=== PATIENT | female | born 1945 | race American Indian/Alaskan Native ===

== ENCOUNTER 2017-04-07 15:34 | Emergency (ER) | payer MEDICARE ==
[2017-04-07 15:44] VITALS: BMI 28.3
--- NOTE | 2017-04-07 16:08 | ED PDOC ---
Arrival/HPI - General Historian: Patient, EMS <Stefania Thao - Last Filed: 04/07/17 22:40> <Vita Zamora - Last Filed: 04/07/17 22:50> - General Chief Complaint: Altered Mental Status Time Seen by Provider: 04/07/17 15:54 - History of Present Illness Narrative History of Present Illness (Text): 04/07/17 16:15 71yr old female with hx of CVA presents today with slurred speech. Pt states she is mad that she is here and that he daughter made her come and her daughter is over reacting. Per EMS, pt with AMS noticed at 1pm today. Per the patients son in law, the patient was last seen well yesterday. Pts daughter went to work at 5am and did not see the patient, but at noon today the patients daughter called her and noticed that the patient was slurring her words, so EMS was contacted. pt claims that she has been dragging her left leg for 2 days. per hx , pt with hx dementia. pt denies cp or sob. family states patient has been diagnosed with dementia that has been slowly worsening. no other complaints. (Stefania Thao) Past Medical History - Provider Review Nursing Documentation Reviewed: Yes - Travel History Have you recently traveled outside [place] w/in the past 3 mons?: No - Infectious Disease Hx of Infectious Diseases: None - Tetanus Immunization Tetanus Immunization: Unknown - Cardiac Hx Hypertension: Yes - Pulmonary Hx Respiratory Disorders: No - Neurological Hx Neurological Disorder: No Hx Transient Ischemic Attacks (TIA): Yes - HEENT Hx HEENT Disorder: No - Renal Hx Renal Disorder: No - Endocrine/Metabolic Hx Diabetes Mellitus Type 2: Yes - Hematological/Oncological Hx Blood Disorders: No Hx Cancer: Yes (multiple myeloma in remission) Other/Comment: stem cell transplant 2012 - Integumentary Hx Dermatological Disorder: No - Musculoskeletal/Rheumatological Hx Falls: Yes (past) - Gastrointestinal Hx Gastroesophageal Reflux: Yes - Genitourinary/Gynecological Hx Genitourinary Disorders: No - Psychiatric Hx Psychophysiologic Disorder: No Hx Substance Use: No - Surgical History Other/Comment: stem cell transplant 2012 - Anesthesia Hx Anesthesia: Yes Hx Anesthesia Reactions: No Hx Malignant Hyperthermia: No - Suicidal Assessment Feels Threatened In Home Enviroment: No <Stefania Thao - Last Filed: 04/07/17 22:40> Family/Social History - Physician Review Nursing Documentation Reviewed: Yes Family/Social History: Unknown Family HX Smoking Status: Never Smoked Hx Alcohol Use: No Hx Substance Use: No Hx Substance Use Treatment: No <Stefania Thao - Last Filed: 04/07/17 22:40> Allergies/Home Meds <Stefania Thao - Last Filed: 04/07/17 22:40> <Vita Zamora - Last Filed: 04/07/17 22:50> Allergies/Adverse Reactions: Allergies No Known Allergies Allergy (Verified 12/08/12 00:51) Home Medications: Home Meds Medication Instructions Recorded Confirmed Lisinopril/Hydrochlorothiazide 1 tab PO DAILY 01/18/15 04/07/17 [Lisinopril-Hctz 20-25 mg Tab] Crestor 5 mg PO HS 02/08/16 04/07/17 Metformin HCl [Glucophage] 500 mg PO BID 02/08/16 04/07/17 Review of Systems - Review of Systems Systems not reviewed;Unavailable: Altered Mental Status Constitutional: absent: Fatigue, Fevers Respiratory: absent: SOB, Cough Cardiovascular: absent: Chest Pain, Palpitations Gastrointestinal: absent: Abdominal Pain, Nausea, Vomiting Musculoskeletal: absent: Arthralgias Skin: absent: Rash <Stefania Thao - Last Filed: 04/07/17 22:40> Physical Exam Vital Signs Reviewed: Yes Temperature: Afebrile Blood Pressure: Hypertensive Pulse: Regular Respiratory Rate: Normal Appearance: Positive for: Well-Appearing, Non-Toxic, Comfortable Pain Distress: None Mental Status: Positive for: Alert and Oriented X 3, other Finger Stick Blood Glucose: 247 - Systems Exam Head: Present: Atraumatic Pupils: Present: PERRL Extroacular Muscles: Present: EOMI Mouth: Present: Moist Mucous Membranes Neck: Present: Normal Range of Motion Respiratory/Chest: Present: Clear to Auscultation Cardiovascular: Present: Regular Rate and Rhythm Abdomen: No: Tenderness Upper Extremity: Present: Normal ROM Skin: Present: Warm, Dry Psychiatric: Present: Alert, Oriented x 3 <Stefania Thao - Last Filed: 04/07/17 22:40> Medical Decision Making <Stefania Thao - Last Filed: 04/07/17 22:40> <Vita Zamora - Last Filed: 04/07/17 22:50> ED Course and Treatment: 04/07/17 16:08 pt is alert and oriented with difficulty expressing herself. code stroke called. Initial history was that patient developed symptoms at 1pm. after further history from family. pt was found to have AMS during a phone call around 12pm today but patient was last seen well Yesterday. discussed initial baseline assessment with dr. ravi. He would like MRI if available. 04/07/17 16:29 CT head; FINDINGS: HEMORRHAGE: No intracranial hemorrhage. BRAIN: Diffuse atrophy with prominence of the ventricles and sulci noted. No mass effect or edema. Right parietal lobe encephalomalacia. Hypodense region adjacent the right frontal horn lateral ventricle consistent with chronic ischemic change. Scattered, right greater than left, periventricular and subcortical white matter hypodensities, which are nonspecific, but often seen with chronic microvascular ischemic disease. VENTRICLES: No hydrocephalus. CALVARIUM: Unremarkable. PARANASAL SINUSES: Unremarkable as visualized. No significant inflammatory changes. MASTOID AIR CELLS: Unremarkable as visualized. No inflammatory changes. OTHER FINDINGS: None. IMPRESSION: Right parietal encephalomalacia, more pronounced than on prior study. Hypodense region adjacent the right frontal horn lateral ventricle consistent with chronic ischemic change. Please note that MRI with diffusion imaging is more sensitive in the detection of acute ischemic event. Nonspecific, right greater than left, white matter changes as above. Generalized atrophy. 04/07/17 16:33 PT IS NOT A TPA CANDIDATE THERE IS NO KNOWN ONSET OF SYMPTOMS. 04/07/17 19:02 MRI/MRA:FINDINGS: Brain: There are tiny punctate foci of elevated signal in the right posterior frontal and parietal lobes on diffusion weighted images some of which appear to have corresponding low signal on the ADC or do not have corresponding elevated signal. There is old right frontal and parietal hemorrhage including areas suggesting superficial siderosis, some of which are tiny areas adjacent to the diffusion abnormalities. No acute hemorrhage. Old right parietal infarct. Small area of high right frontal cortical laminar necrosis. Volume loss. Chronic small vessel white matter ischemic change. Ventricles: No hydrocephalus. Bones/joints: Unremarkable. Sinuses: Mild paranasal sinus mucosal thickening. No fluid levels. Mastoid air cells: Unremarkable as visualized. No mastoid effusion. Orbits: Unremarkable as visualized. Vertebral arteries: Flow-void of the distal left vertebral artery is not visualized, stable. IMPRESSION: Findings compatible with small acute right posterior frontal and parietal infarcts. Old right parietal infarct. Chronic small vessel white matter ischemic change. Old right frontal and parietal hemorrhage. Nonacute distal left vertebral artery occlusion. EXAM: MR Angiography Head Without Intravenous Contrast FINDINGS: Right internal carotid artery: There is relative attenuation of signal in the cavernous and supraclinoid segments of the right internal carotid artery Right anterior cerebral artery: Proximal A1 segment of the right anterior cerebral artery is not visualized. There is flow within the distal A1 segment extending into the A2 segment. Proximal A2 is attenuated in signal with no occlusion. No aneurysm. Right middle cerebral artery: No significant flow within the right middle cerebral artery on reconstructed images although there is questionable trickle flow in the M1 and proximal M2 segments on review of source images. There is reconstitution of flow in the distal M2 with flow seen in right temporal opercular branches. Right posterior cerebral artery: High-grade stenosis in the distal P2 segment right posterior cerebral artery. Right vertebral artery: Mild stenosis in the distal right vertebral artery just proximal to the vertebrobasilar junction. Left internal carotid artery: No acute findings. Intracranial segment is patent with no significant stenosis. Left anterior cerebral artery: There is attenuation of signal in the proximal A2 segment of the left anterior cerebral artery which could be artifact or a mild stenosis. No occlusion. No aneurysm. Left middle cerebral artery: Unremarkable. No occlusion or significant stenosis. No aneurysm. Left posterior cerebral artery: Unremarkable. No aneurysm. Left vertebral artery: No flow within the distal left vertebral artery. Basilar artery: Mild stenoses in the proximal and mid IMPRESSION: Marked attenuation of signal in the distal right vertebral artery which could represent artifact, poor flow and/or near occlusion. Questionable minimal flow in the right middle cerebral artery which could represent occlusion or highgrade near occlusive stenosis with a string sign. Nonvisualization of flow in the proximal right anterior screw artery which would suggest occlusion although there is flow seen distally which could be reconstitution, retrograde flow, or possibly the lack of visualization proximally is artifactual. Occluded distal left vertebral artery. Distal right vertebral artery, basilar artery, and right posterior cerebral artery stenoses. Mild bilateral anterior cervical artery A2 stenoses versus artifact. Consider CTA brain to further evaluate and confirm whether the right middle cerebral artery is occluded or there is minimal flow dr. zamora discussed results with dr. Jean Marie ravi; he would like CTA of head and neck. 04/07/17 19:44 dr. Zamora discussed the case with dr. roldan; accepts admission. pt reassessment; resting comfortably; vitals stable; pt eating in er. no distress. CTA Of head and neck results; EXAM: CT Angiography Head With Intravenous Contrast CLINICAL HISTORY: 71 years old, female; Signs and symptoms; Cognitive deficit; Type not specified ; Additional info: Stroke TECHNIQUE: Axial computed tomographic angiography images of the head with intravenous contrast using CT angiography protocol. This CT exam was performed using one or more of the following dose reduction techniques: automated exposure control, adjustment of the mA and/or kV according to patient size, and/or use of iterative reconstruction technique. CONTRAST: 146 mL of OMNIPAQUE administered intravenously. COMPARISON: No relevant prior studies available. FINDINGS: Right internal carotid artery: No evidence of acute pathology. Intracranial segment is patent with no significant stenosis. No aneurysm. Right anterior cerebral artery: Unremarkable. No occlusion or significant stenosis. No aneurysm. Right middle cerebral artery: Long segment area of moderate to severe stenosis seen in right M1 segment of MCA. No evidence of occlusion. M2 segments are patent. Right posterior cerebral artery: Unremarkable. No occlusion or significant stenosis. No aneurysm. Right vertebral artery: Unremarkable as visualized. Left internal carotid artery: No evidence of acute pathology. Intracranial segment is patent with no significant stenosis. No aneurysm. Left anterior cerebral artery: Unremarkable. No occlusion or significant stenosis. No aneurysm. Left middle cerebral artery: Unremarkable. No occlusion or significant stenosis. No aneurysm. Left posterior cerebral artery: Unremarkable. No occlusion or significant stenosis. No aneurysm. Left vertebral artery: Complete occlusion of left distal vertebral artery involving the intracranial portion. There is tapering of flow beginning at the level of the dura to complete occlusion. Basilar artery: Areas of mild atherosclerotic stenosis in mid basilar artery. IMPRESSION: 1. Complete occlusion of left distal vertebral artery involving the intracranial portion. There is tapering of flow beginning at the level of the dura to complete occlusion. Findings are consistent with vertebral artery dissection. 2. Long segment area of moderate to severe stenosis seen in right M1 segment of MCA. No evidence of occlusion. M2 segments are patent. 3. Areas of mild atherosclerotic stenosis in mid basilar artery. EXAM: CT Angiography Neck With Intravenous Contrast FINDINGS: VASCULATURE: Right common carotid artery: Unremarkable. No significant stenosis. No dissection or occlusion. Right internal carotid artery: Mild atherosclerotic calcifications in bilateral proximal ICA. No significant stenosis. Right external carotid artery: Unremarkable. No occlusion. Right vertebral artery: Unremarkable. No significant stenosis. No dissection or occlusion. Left common carotid artery: Unremarkable. No significant stenosis. No dissection or occlusion. Left internal carotid artery: See above. Left external carotid artery: Unremarkable. No occlusion. Left vertebral artery: Tapering of distal left vertebral artery leading to intracranial occlusion. NECK: Bones/joints: No acute fracture. No dislocation. Soft tissues: Unremarkable as visualized. No mass. Thyroid: Multiple cystic lesions in thyroid gland measuring up to 9 mm. CAROTID STENOSIS REFERENCE USING NASCET CRITERIA: % ICA stenosis = (1 - narrowest ICA diameter/diameter of distal cervical ICA) x 100. Mild - <50% stenosis. Moderate - 50-69% stenosis. Severe - 70-94% stenosis. Near occlusion - 95-99% stenosis. Occluded - 100% stenosis. IMPRESSION: 1. Tapering of distal left vertebral artery leading to intracranial occlusion. 2. Mild atherosclerotic calcifications in bilateral proximal ICA. No significant stenosis. pt reassessment; resting comfortably; vitals remain stable. results discussed with dr. Jean Marie ravi; pt should be transferred to [facility] for VAD. impression; CVA, vertebral artery dissection Transfer to [facility] (Stefania Taho) 04/07/17 21:05 Patient seen and evaluated with JOSE. I obtained history from [facility] and subsequently spoke directly to patient's "son-in-law". Reportedly that patient was last seen her typical self last night. Daughter went to work at 5 am today but did not see patient. She reportedly spoke to patient on phone around noon and she "wasn't talking right on the phone". Daughter went home and around 1pm noted she had difficulty speaking. Patient seen immediately upon arrival to ED. As initial time frame unknown, CODE stroke called and neurology consulted as patient noted to have drift to left upper and lower extremity and mild expressive aphasia. NOT A TPA CANDIDATE as futher history revealed unknown time of onset. CT head reviewed and case d/w Dr. Martha Ravi. Stat MRI AND MRA requested. These MRI and MRA findigns reviewed with neurology, CTA of head and neck ordered. CTA findings suggestive of vertebral artery dissection. Patient with serial neuro exams in ED, NO WORSENING OF MENTAL STATUS OR CHANGE IN NEURO EXAM. BP remains stable. CTA findings reviewed with Dr. Martha Ravi, requests transfer to [facility]3] for neuro icu monitoring. [facility] paged. Have continued monitoring and serial exams. 04/07/17 21:47 Case discussed with [facility] team with Dr. Toth accepting transfer. I have discussed in length with the patient her diagnosis and ct and mri findings. RN Amanda present and patient is alert and able to repeat back her diagnosis and understands that neurologist has recommended transfer to [facility]3] based on cta findings. She still has a component of expressive aphasia but is able to communicated to me and write down her daughter Selena's cell phone number, and also clarifies to me that she believes her daughter is in [place] and her phone may not be working. She also states to me that it was Tremaine, her fiance, not her daughter, who came to her house this afternoon to find her in this state. Patient is able to repeat back treatment plan, indications for transfer, risks of transfer, and has been given opportunity to ask questions. Rn witness her consent and ability to communicate and understand and consent to treatment plan. I have made multiple calls to Selena on cell phone and left voice mail message. I have also called Tremaine Franco, daughter's fiance who was present with patient on initial arrival . Patient consents to transfer based on abnormal ct findings. Patient states to me that she had prior history of brain hemorrhage. Based on urgency of cta findings and after consultation with Dr. Martha Ravi, patient requires emergent transfer for specialty neurosurgical ICU monitoring and treatment. 04/07/17 22:48 Patient's daughter Selena presented to ED. She was updated on patient's diagnosis and studies. She is aware of plan to transfer patient to [facility]3] and indications and also consents to this based on neurologist recommendation and cta findings. Patient reportedly saw pmd Dr. Biggs yesterday due to left leg weakness she had been experiencing and multiple falls over past week. No unstable bony trauma noted. No hip pain noted. No back pain noted. Awaiting transfer to [facility]3]. (Vita Zamora) - Lab Interpretations Lab Results: 04/07/17 16:35 04/07/17 16:35 Lab Results 04/07/17 16:35: Blood Type O POSITIVE, Antibody Screen Negative, BBK History Checked Patient has bt 04/07/17 16:35: Sodium 139, Potassium 4.4, Chloride 101, Carbon Dioxide 27, Anion Gap 15, BUN 16, Creatinine 0.8, Est GFR ( Amer) > 60, Est GFR (Non- Af Amer) > 60, Random Glucose 218 H, Calcium 10.1, Total Bilirubin 0.5, AST 25, ALT 22, Alkaline Phosphatase 98, Troponin I < 0.01, Total Protein 8.8 H, Albumin 4.1, Globulin 4.7, Albumin/Globulin Ratio 0.9 L, Triglycerides 137, Cholesterol 201 H, LDL Cholesterol Direct 148 H, HDL Cholesterol 32 04/07/17 16:35: PT 11.3, INR 1.05, APTT 26.2 04/07/17 16:35: WBC 9.3, RBC 4.31, Hgb 11.1 L, Hct 33.8 L, MCV 78.4 L, MCH 25.8 , MCHC 32.8, RDW 16.2 H, Plt Count 333, MPV 8.6, Gran % 50.0, Lymph % (Auto) 36.6 H, Lawrence % (Auto) 10.0 H, Eos % (Auto) 3.2, Baso % (Auto) 0.2, Gran # 4.62, Lymph # 3.4, Lawrence # 0.9 H, Eos # 0.3, Baso # 0.02 - RAD Interpretation Radiology Orders: 04/07/17 15:56 HEAD W/O (CODE STROKE) [CT] Stat CHEST ONE VIEW [RAD] Stat 04/07/17 16:01 BRAIN WITHOUT CONTRAST [MRI] Stat - Medication Orders Current Medication Orders: Acetaminophen (Tylenol 325mg Tab) 650 mg PO Q6H PRN PRN Reason: Fever >100.4 F Aspirin (Aspirin Chewable) 81 mg PO DAILY [facility] Atorvastatin Calcium (Lipitor) 20 mg PO DIN [facility] Hydrochlorothiazide (Hydrodiuril) 25 mg PO DAILY [facility] Insulin Human Regular (Humulin R Med) 0 units SC ACHS JUAN RAMON PRN Reason: Protocol Lisinopril (Zestril) 20 mg PO DAILY [facility] Metformin HCl (Glucophage) 500 mg PO BID [facility] Last Admin: 04/07/17 19:44 Dose: 500 mg Pantoprazole Sodium (Protonix Ec Tab) 40 mg PO 0630 [facility] Discontinued Medications Aspirin (Aspirin) 325 mg PO STAT STA Stop: 04/07/17 17:12 Last Admin: 04/07/17 18:02 Dose: 325 mg Iohexol (Omnipaque 350 150 Ml) Confirm Administered Dose 150 ml .ROUTE .STK-MED ONE Stop: 04/07/17 19:35 NIHSS Scale ([place]) Time Performed: 16:00 - How Severe is the Stoke Baseline Level of Consciousness: 0=Alert LOC to Questions: 0=Both comments correct LOC to commands: 0=Obeys both correctly Best Gaze: 0=Normal Visual: 0=No visual loss Facial: 0=Normal Motor Arm - Left: 0=No drift Motor Arm - Right: 0=No drift Motor Leg - Left: 1=Drift before 5 sec Motor Leg - Right: 0=No drift Limb Ataxia: 0=Absent Sensory: 0=Normal Best Language: 0=No aphasia Dysarthia: 1=Mild to moderate slurring Extinction & Inattention (Neglect): 0=Normal, no object Score: 2 Risk Level: Minor Stroke Risk <Stefania Thao - Last Filed: 04/07/17 22:40> rTPA Inclusion/Exclusion - Refusal of Treatment Patient Refused Treatment: No - Inclusion Criteria for Altepase Patient is 18 years or Older: Yes The Clinical Diagnosis of Ischemic Stroke That is Causing a Potentially Disabling Neurological Deficit: Yes Time of Onset is Well Established to be Less Than 270 Minute Before Treatment Would Begin: No Risk/Benefit Discussed With Patient/Family Member Present: No - Exclusion Criteria for Altepase Uncontrolled Hypertension at Time of Treatment (Systolic BP above 185 or Diastolic BP above 110 mmHg): No Active Internal Bleeding: No Known Bleeding Diathesis Including but Not Limited to: Platelets Below 100,000/ mm,PTT Above 40 sec After Heparin Use, Current Use of Oral Anitcoagulant With INR Greater Than 1.7 or PT Greater Than 15 secs: No Evidence of an Intracranial Hemorrhage: No Evidence of Major Acute Infarct With Signs Greater Than 1/3 MCA Territory: No Suspicion of Subarachnoid Hemorrhage on Pretreatment Evaluation Even if CT Head Negative For Hemorrhage: No <Stefania Thao - Last Filed: 04/07/17 22:40> - PA / MEDICAL AUDITOR / Resident Statement / has reviewed & agrees with the documentation as recorded. / has examined the patient and agrees with the treatment plan. <Vita Zamora - Last Filed: 04/07/17 22:50> Disposition/Present on Arrival - Present on Arrival Any Indicators Present on Arrival: No History of DVT/PE: No History of Uncontrolled Diabetes: No Urinary Catheter: No History of Decub. Ulcer: No History Surgical Site Infection Following: None - Disposition Have Diagnosis and Disposition been Completed?: Yes Disposition Time: 16:41 <Stefania Thao - Last Filed: 04/07/17 22:40> <Vita Zamora - Last Filed: 04/07/17 22:50> - Disposition Diagnosis: CVA (cerebral vascular accident), Vertebral artery dissection Disposition: Transfer Overlook Patient Problems: Current Active Problems Problem Status Onset CVA (cerebral vascular accident) Acute Vertebral artery dissection Acute Condition: CRITICAL
--- NOTE | 2017-04-07 16:26 | CT ---
PROCEDURE: CT HEAD WITHOUT CONTRAST. HISTORY: Code Stroke COMPARISON: None available. TECHNIQUE: Axial computed tomography images were obtained through the head/brain without intravenous contrast. Radiation dose: Total exam DLP = 745.93 mGy-cm. This CT exam was performed using one or more of the following dose reduction techniques: Automated exposure control, adjustment of the mA and/or kV according to patient size, and/or use of iterative reconstruction technique. FINDINGS: HEMORRHAGE: No intracranial hemorrhage. BRAIN: Diffuse atrophy with prominence of the ventricles and sulci noted. No mass effect or edema. Right parietal lobe encephalomalacia. Hypodense region adjacent the right frontal horn lateral ventricle consistent with chronic ischemic change. Scattered, right greater than left, periventricular and subcortical white matter hypodensities, which are nonspecific, but often seen with chronic microvascular ischemic disease. VENTRICLES: No hydrocephalus. CALVARIUM: Unremarkable. PARANASAL SINUSES: Unremarkable as visualized. No significant inflammatory changes. MASTOID AIR CELLS: Unremarkable as visualized. No inflammatory changes. OTHER FINDINGS: None. IMPRESSION: Right parietal encephalomalacia, more pronounced than on prior study. Hypodense region adjacent the right frontal horn lateral ventricle consistent with chronic ischemic change. Please note that MRI with diffusion imaging is more sensitive in the detection of acute ischemic event. Nonspecific, right greater than left, white matter changes as above. Generalized atrophy. Findings discussed with [employer] Securitymaggie epps on 04/07/17 at 4:21 p.m.
--- NOTE | 2017-04-07 16:35 | RAD ---
HISTORY: code stroke COMPARISON: Chest x-ray performed 02/08/16 TECHNIQUE: Chest, one view. FINDINGS: Examination limited by habitus. LUNGS: No focal consolidation. Please note that chest x-ray has limited sensitivity for the detection of pulmonary masses. PLEURA: No significant pleural effusion identified. No definite pneumothorax . CARDIOVASCULAR: Heart size appears within normal limits. OSSEOUS STRUCTURES: Degenerative changes of the spine. VISUALIZED UPPER ABDOMEN: Elevated right hemidiaphragm. OTHER FINDINGS: None. IMPRESSION: No focal consolidation, significant pleural effusion, or definite pneumothorax identified.
[2017-04-07 16:47] LABS: ADD MANUAL DIFF? NO
[2017-04-07 16:49] LABS: BASO # 0.02 K/mm3 (0.0-2.0); BASO % 0.2 % (0.0-3.0); EOS # 0.3 (0.0-0.7); EOS % 3.2 % (1.5-5.0); GRAN # 4.62 (1.4-6.5); HEMATOCRIT 33.8 % (36.0-48.0); LYMPH # 3.4 (1.2-3.4); LYMPH % 36.6 % (22.0-35.0); MEAN CELL VOLUME 78.4 fL (80.0-105.0); MEAN CORPUSCULAR HEMOGLOBIN 25.8 pg (25.0-35.0); MEAN CORPUSCULAR HGB CONC 32.8 g/dl (31.0-37.0); MEAN PLATELET VOLUME 8.6 fl (7.0-11.0); MONO # 0.9 (0.1-0.6); PLATELET COUNT 333 10^3/uL (120.0-450.0); RED CELL DISTRIBUTION WIDTH 16.2 % (11.5-14.5); WHITE BLOOD COUNT 9.3 10^3/ul (4.5-11.0)
[2017-04-07 17:04] LABS: ALB/GLOB RATIO 0.9 (1.1-1.8); ALKALINE PHOSPHATASE 98 U/L (38-133); ALT/SGPT 22 U/L (7-56); AST/SGOT 25 U/L (15-39); BILIRUBIN,TOTAL 0.5 mg/dL (0.2-1.3); BLOOD UREA NITROGEN 16 mg/dL (7-21); CALCIUM 10.1 mg/dL (8.4-10.5); CARBON DIOXIDE 27 mmol/L (21-33); CHLORIDE 101 mmol/L (98-107); CHOLESTEROL 201 mg/dL (130-200); GFR AFRICAN-AMERICAN > 60; GLUCOSE,RANDOM 218 mg/dL (70-110); POTASSIUM 4.4 mmol/L (3.6-5.0); SODIUM 139 mmol/L (132-148); TOTAL PROTEIN 8.8 g/dL (5.8-8.3)
[2017-04-07 17:15] LABS: INR 1.05 (0.93-1.08); PARTIAL THROMBOPLASTIN TIME 26.2 Seconds (23.7-30.8)
[2017-04-07 17:18] LABS: TROPONIN I < 0.01 ng/mL
[2017-04-07 21:32] LABS: CHOLESTEROL 169 mg/dL (130-200)
[2017-04-07 21:49] LABS: TROPONIN I < 0.01 ng/mL
[2017-04-07] MEDS ORDERED: Insulin Reg-MEDIUM-Coverage SC SCH (22:00)
[2017-04-07 23:33] VITALS: BP 123/70; PULSE 85; RESP 16; TEMP 98.2; O2SAT 96
--- NOTE | 2017-04-08 01:00 | HP ---
HISTORY OF PRESENT ILLNESS: The patient is a 71-year-old female who lives with her daughter. Her scot luong went to work and the last time she saw her was this morning and was okay, but when she called her in the afternoon, she was slurring speech and she was found to be somewhat confused, so daughter brought her to Emergency Room. The patient seems to be upset with her daughter, because she did not want to come to the hospital. The patient was seen last night. However, she was found to be confuse d and slurring words. So EMS was called and the patient was brought to Emergency Room. The patient does complain of having some weakness on the left arm and the left leg going on for the last 2 days. Denies any trauma. No history of fall. The patient does have underlying dementia. No history of f ever or chills. No history of nausea, vomiting, no diarrhea, no hemoptysis, no hematemesis. PAST MEDICAL HISTORY: 1. Non-insulin dependent diabetes. 2. Hypertension. 3. Hyperlipidemia. ALLERGIES: She is not allergic to any medications. MEDICATIONS AT HOME: She is on metformin 500 twice a day, lisinopril 20 with hydrochlorothiazide 25 mg, Crestor 5 mg at bedtime, aspirin 81 daily. SOCIAL HISTORY: She lives with her daughter. Denies smoking, drinking or alcohol use. REVIEW OF SYSTEMS: Significant for left-sided weakness and somewhat confused more than usual. PHYSICAL EXAMINATION: GENERAL: She is awake and alert, answers simple questions. VITAL SIGNS: She is afebrile, pulse 74, respirations 16, blood pressure 136/75. LUNGS: Bilateral good airflow, no rhonchi or crackle. HEART: S1, S2 audible. ABDOMEN: Soft, nontender, no rebound, no guarding. NEUROLOGIC: She is awake and alert, somewhat confused, has left upper extremity weakness. EXTREMITIES: Bilateral leg, no edema. LABORATORY DATA: WBC is 9.3, hemoglobin 11, hematocrit 33.8, platelet of 323, PT 11.3, INR 1.05, PTT 26.2. Chemistry: Sodium 139, potassium 4.4, chloride 101, CO2 of 27, BUN 16, creatinine 0.8, blood sugar of 218. LFTs are within normal limits. Total protein 8.8. Cholesterol 201, LDL is 148. AST . CT scan of the brain was done that shows right parietal encephalomalacia and also changes co nsistent with chronic ischemic changes, nonspecific right white matter changes, generalized atrophy. The patient had MRI done that shows a possible acute infarct of MCA, right MCA. X-ray chest shows n o focal consolidation or pleural effusion. ASSESSMENT AND PLAN: 1. Altered mental status with left-sided weakness. 2. Expressive dysphasia. PLAN: Discussed with the ER physician, which she is not TPA, so code stroke was called. The i s being admitted in telemetry. We will follow up her blood work. Monitor her blood sugar. CT angio has been requested by Dr. Kevin Ross. We will start her on aspirin, statins. Swallowing eval stein s been requested. Physical therapy evaluation has been requested. Kesha Saavedra MD cc: [phone] TT: 04/08/2017 00:59:14 mn
[2017-04-08] MEDS ORDERED: Pantoprazole 40 mg EC Tab PO SCH (06:30)
--- NOTE | 2017-04-08 14:13 | MRI ---
PROCEDURE: MRI BRAIN WITHOUT CONTRAST HISTORY: AMS COMPARISON: Noncontrast head CT from 04/07/2017. MRI brain without contrast from 02/09/2016 TECHNIQUE: Multiplanar, multisequence MR images of the brain were obtained without intravenous contrast enhancement. FINDINGS: HEMORRHAGE: None DWI: There are multiple tiny foci of restricted diffusion in the right centrum semiovale, lateral and paramedian frontal cortex and parietal cortex. BRAIN PARENCHYMA: There has been interval progression of old infarctions in the right frontal and parietal lobes. There are moderate chronic microangiopathic changes. There is no mass, mass effect or abnormal extra-axial fluid collection. The midline sagittal structures are normal. VENTRICLES: There is mild age-related global parenchymal volume loss and proportionate enlargement of the ventricles and cortical sulci. CRANIUM: There is normal bone marrow signal pattern. ORBITS: Grossly unremarkable. PARANASAL SINUSES/MASTOIDS: Predominantly clear. VASCULAR SYSTEM: There are normal signal voids in the larger intracranial arteries. There is redemonstration of absent flow void in the left vertebral artery. OTHER FINDINGS: None. IMPRESSION: 1. Findings are most compatible with small multifocal acute infarctions in the right centrum semiovale, frontal and parietal cortex in the left MCA distribution territory distribution. The pattern of distribution is most compatible with embolic etiology. 2. Interval progression of old infarctions in the right frontal and parietal lobes. 3. Moderate chronic microangiopathic changes and mild age-related global parenchymal volume loss. 4. Chronic occlusion of the left vertebral artery. A preliminary report was provided by [facility].
--- NOTE | 2017-04-08 14:36 | CT ---
PROCEDURE: CTA HEAD AND NECK WITH CONTRAST HISTORY: Stroke COMPARISON: Noncontrast head CT performed earlier the same day TECHNIQUE: Initial noncontrast head CT was performed. Subsequently, CT angiogram of the head and neck were performed after the intravenous administration of 80 mL of Omnipaque 350. Contiguous 1.5mm thick images were obtained in the axial plane of the neck. 2-D coronal and sagittal MPR images were obtained. Imaging postprocessing was performed with 3-D images also obtained. A delayed contrast head CT was also obtained. Iterative reconstruction was used. Radiation dose: Total exam DLP = 514.49 mGy-cm. This CT exam was performed using one or more of the following dose reduction techniques: Automated exposure control, adjustment of the mA and/or kV according to patient size, and/or use of iterative reconstruction technique FINDINGS: HEAD: Right: The intracranial internal carotid artery, and anterior arteries are widely patent. There is segmental moderate stenosis in the proximal M1 segment. Left: The intracranial internal carotid artery, anterior and middle cerebral arteries are widely patent. The visualized intracranial right vertebral artery and posterior cerebral arteries are widely patent. There is mild multifocal stenosis in the proximal and mid basilar artery. Bone There is complete occlusion of the intracranial left vertebral artery (V4 segment). The There is no endoluminal filling defect to suggest thrombus. There is no intracranial stenosis or aneurysm. There is no abnormal enhancement on the postcontrast CT. NECK: There is no stenosis at the origins of the great vessels at the level of the aortic arch. Right Carotid: On the right, the common carotid, internal carotid and external carotid arteries are widely patent. Mild atherosclerotic calcifications in the proximal internal carotid artery. Left Carotid: On the left, the common carotid, internal carotid and external carotid arteries are widely patent. Mild atherosclerotic calcifications in the proximal internal carotid artery. The vertebral arteries are widely patent. The left vertebral artery is hypoplastic. The visualized soft tissues of the neck are normal. No abnormal neck lymphadenopathy. The airway is patent. The visualized brain, cervical spine and lung apices are normal. There is a multinodular thyroid gland. IMPRESSION: 1. Segmental moderate stenosis in the proximal right M1 segment. 2. 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 3. Mild multifocal narrowing in the proximal and mid basilar artery. 4. Multinodular thyroid gland, if not already performed a dedicated thyroid ultrasound is recommended for further characterization. A preliminary report was provided by [email or web address]. Additional findings were discussed with JOSE Reyes in the ER on 04/08/2017 at 2:30 p.m.
--- NOTE | 2017-04-08 22:11 | CARD ---
APPROVED REPORT EKG Measurement Heart [id number] FL [id number] [id number] <Conclusion> Normal sinus rhythm Normal ECG
== END 2017-04-07 23:35 | disposition short-term general hospital (02) ==
LOC: ED 15:34 → UNDOADMIN 16:40 → ERH 16:40
DX: I63.9 Cerebral infarction, unspecified (principal); I77.74 Dissection of vertebral artery; I10 Essential (primary) hypertension; C90.01 Multiple myeloma in remission; E11.9 Type 2 diabetes mellitus without complications; K21.9 Gastro-esophageal reflux disease without esophagitis
CPT/HCPCS: 70450; 70496; 70498; 70551; 71010; 80053; 80061; 83036; 84484; 85025; 85610; 85730; 86850; 86900; 93005; 99285; Q9967

== ENCOUNTER 2017-07-29 16:17 | Inpatient (IN) | payer MEDICARE ==
[2017-07-29 16:37] VITALS: BMI 27.0
--- NOTE | 2017-07-29 16:38 | ED PDOC ---
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 Patient comes in accompanied with her daughter who explains that she has noticed changes in speech and decrease in cognition due to patient's responses over the past few days. Additionally, daughter states noticing patient having gait changes. Patient admits to generalized weakness. Patient denies fever, chest pain, headache, shortness of breath, abdominal pain, nausea, vomiting, dysuria, or other complaints. PMD: Dr. Biggs Time/Duration: < week Symptom Onset: Sudden Symptom Course: Unchanged Associated Symptoms (Text): weakness, changes in cognition, speech, and gait Past Medical History - Provider Review Nursing Documentation Reviewed: Yes - Infectious Disease Hx of Infectious Diseases: None - Tetanus Immunization Tetanus Immunization: Unknown - Cardiac Hx Hypertension: Yes - Pulmonary Hx Respiratory Disorders: No - Neurological Hx Neurological Disorder: No Hx Transient Ischemic Attacks (TIA): Yes - HEENT Hx HEENT Disorder: No - Renal Hx Renal Disorder: No - Endocrine/Metabolic Hx Diabetes Mellitus Type 2: Yes - Hematological/Oncological Hx Blood Disorders: No Hx Cancer: Yes (multiple myeloma in remission) Other/Comment: stem cell transplant 2012 - Integumentary Hx Dermatological Disorder: No - Musculoskeletal/Rheumatological Hx Falls: Yes (past) - Gastrointestinal Hx Gastroesophageal Reflux: Yes - Genitourinary/Gynecological Hx Genitourinary Disorders: No - Psychiatric Hx Psychophysiologic Disorder: No Hx Substance Use: No - Surgical History Other/Comment: stem cell transplant 2012 - Anesthesia Hx Anesthesia: Yes Hx Anesthesia Reactions: No Hx Malignant Hyperthermia: No - Suicidal Assessment Feels Threatened In Home Enviroment: No Family/Social History - Physician Review Nursing Documentation Reviewed: Yes Family/Social History: Unknown Family HX Smoking Status: Never Smoked Hx Alcohol Use: No Hx Substance Use: No Hx Substance Use Treatment: No Allergies/Home Meds Allergies/Adverse Reactions: Allergies No Known Allergies Allergy (Verified 07/29/17 16:27) Home Medications: Home Meds Medication Instructions Recorded Confirmed Lisinopril/Hydrochlorothiazide 1 tab PO DAILY 01/18/15 07/29/17 [Lisinopril-Hctz 20-25 mg Tab] Crestor 5 mg PO HS 02/08/16 07/29/17 Metformin HCl [Glucophage] 500 mg PO BID 02/08/16 07/29/17 Clopidogrel [Plavix] 1 tab PO DAILY 07/29/17 07/29/17 Review of Systems - Physician Review All systems were reviewed & negative as marked: Yes - Review of Systems Constitutional: Fatigue (generalized weakness). absent: Fevers Respiratory: absent: SOB, Cough Cardiovascular: absent: Chest Pain Gastrointestinal: absent: Abdominal Pain, Diarrhea, Nausea, Vomiting Genitourinary Female: absent: Dysuria Musculoskeletal: absent: Back Pain Neurological: Focal Weakness (left sided weakness compared to right ), Gait Changes, Speech Changes. absent: Headache Physical Exam Vital Signs Reviewed: Yes Vital Signs Temp Pulse Resp BP Pulse Ox 07/29/17 18:45 98.2 F 78 17 122/64 98 07/29/17 17:22 98.4 F 07/29/17 17:08 80 17 125/70 96 07/29/17 16:40 84 17 172/91 H 98 Blood Pressure: Hypertensive Pulse: Regular Respiratory Rate: Normal Appearance: Positive for: Ill-Appearing Pain Distress: None Mental Status: Positive for: Alert and Oriented X 3 Finger Stick Blood Glucose: 132 - Systems Exam Head: Present: Atraumatic, Normocephalic Pupils: Present: PERRL Extroacular Muscles: Present: EOMI Conjunctiva: Present: Normal Mouth: Present: Moist Mucous Membranes Pharnyx: Present: Normal. No: ERYTHEMA, EXUDATE Respiratory/Chest: Present: Clear to Auscultation, Good Air Exchange. No: Respiratory Distress, Accessory Muscle Use Cardiovascular: Present: Regular Rate and Rhythm, Normal S1, S2. No: Murmurs Abdomen: Present: Normal Bowel Sounds. No: Tenderness, Distention, Peritoneal Signs, Rebound, Guarding Upper Extremity: Present: Normal Inspection, Neurovascularly Intact. No: Cyanosis, Edema Lower Extremity: Present: Normal Inspection. No: Edema Neurological: Present: GCS=15, CN II-XII Intact, Normal Sensory Function, Other (no pronator drift). No: Speech Normal (limited speech ) Skin: Present: Warm, Dry, Normal Color. No: Rashes Psychiatric: Present: Alert, Oriented x 3, Normal Insight, Normal Concentration Medical Decision Making ED Course and Treatment: 07/29/17 Impression: 71 year old female with limited speech. no pronator drift. Plan: -- CT Head scan -- EKG -- Chest X-ray -- Labs -- Urinalysis -- Reassess and disposition Progress Notes: 07/29/17 17:[address]: Creator : Cem Leger MD COMPARISON: 04/07/2007 CT head, MRI brain. FINDINGS: HEMORRHAGE: No intracranial hemorrhage. BRAIN: No mass effect or edema. Evidence of old cortical and deep white matter infarctions in the distribution of the right middle cerebral artery. VENTRICLES: Unremarkable. No hydrocephalus. CALVARIUM: Unremarkable. PARANASAL SINUSES: Unremarkable as visualized. No significant inflammatory changes. MASTOID AIR CELLS: Unremarkable as visualized. No inflammatory changes. OTHER FINDINGS: None. IMPRESSION: No acute intracranial abnormalities. No significant findings to account for the clinical presentation. No significant interval change compared to the prior examination(s). 07/29/17 17:20 Chest X-ray: Creator : Cem Leger MD COMPARISON: 04/07/2017 FINDINGS: LUNGS: No active pulmonary disease. PLEURA: No significant pleural effusion identified, no pneumothorax apparent. CARDIOVASCULAR: No radiographic findings to suggest acute or significant cardiovascular disease. OSSEOUS STRUCTURES: No significant abnormalities. VISUALIZED UPPER ABDOMEN: Normal. OTHER FINDINGS: None. IMPRESSION: No active disease. No significant interval change compared to the prior examination(s). Please note: No preliminary report/ innterpretation of this examination provided by emergency department personnel. 07/29/17 EKG: Ordered, reviewed, and independently interpreted the EKG. Rate : 85 BPM Rhythm : NSR Interpretation : No ST-segment elevations or depressions, no T-wave inversions, normal intervals. Comparison : 04/07/2017 07/29/17 18:51 Patient with noted history; vitals are unremarkable and neurologically, the patient is close to baseline. Labs showing low Mg and leukocytosis with anemia. Urine shows UTI; patient with underlying DM and stem cell transplant for MM - will admit for iv antibiotics and evaluation and treatment of alt ms. Discussed with Dr. Mays. - Lab Interpretations Lab Results: 07/29/17 16:25 07/29/17 16:25 Lab Results 07/29/17 17:30: Urine Color Light yellow, Urine Appearance Clear, Urine pH 6.0, Ur Specific Rowley 1.020, Urine Protein 30 H, Urine Glucose (UA) Negative, Urine Ketones Negative, Urine Blood Large H, Urine Nitrate Negative, Urine Bilirubin Negative, Urine Urobilinogen 0.2, Ur Leukocyte Esterase Small H, Urine RBC 10 - 15, Urine WBC 5 - 10, Ur Epithelial Cells 3 - 4, Urine Bacteria Many 07/29/17 16:25: Sodium 140, Potassium 4.2, Chloride 101, Carbon Dioxide 24, Anion Gap 19, BUN 22 H, Creatinine 1.0, Est GFR ( Amer) > 60, Est GFR ( Non-Af Amer) 55, Random Glucose 126 H, Calcium 10.8 H, Magnesium 1.5 L, Total Bilirubin 0.3, AST 21, ALT 19, Alkaline Phosphatase 109, Lactate Dehydrogenase 322 L, Total Creatine Kinase 43, Troponin I < 0.01, NT-Pro-B Natriuret Pep 37.4 , Total Protein 8.6 H, Albumin 4.2, Globulin 4.4, Albumin/Globulin Ratio 1.0 L, Lipase 270 07/29/17 16:25: PT 10.9, INR 1.01, APTT 27.8 07/29/17 16:25: WBC 12.9 H D, RBC 3.98, Hgb 9.5 L, Hct 30.2 L, MCV 75.9 L, MCH 23.9 L, MCHC 31.5, RDW 17.7 H, Plt Count 424, MPV 8.5, Gran % 50.9, Lymph % ( Auto) 39.3 H, Fajardo % (Auto) 7.4 H, Eos % (Auto) 2.2, Baso % (Auto) 0.2, Gran # 6.55 H, Lymph # 5.1 H, Fajardo # 1.0 H, Eos # 0.3, Baso # 0.03 07/29/17 16:24: POC Glucose (mg/dL) 132 H I have reviewed the lab results: Yes - RAD Interpretation Radiology Orders: 07/29/17 16:33 CHEST PORTABLE [RAD] Stat 07/29/17 16:34 Brain [HEAD W/O CONTRAST] [CT] Stat Trailer Technician: Radiologist - EKG Interpretation Interpreted by ED Physician: Yes Type: 12 lead EKG - Medication Orders Current Medication Orders: Discontinued Medications Magnesium Sulfate 2 gm/ Sodium (Chloride) 104 mls @ 102 mls/hr IV ONCE ONE Stop: 07/29/17 18:31 Last Admin: 07/29/17 18:12 Dose: 102 mls/hr eMAR Start Stop Document 07/29/17 18:12 IT (Rec: 07/29/17 18:17 IT [facility] [place]-[id number]) Intravenous Solution Start Date 07/29/17 Start Time 18:17 End Date 07/29/17 End time 19:18 Total Infusion Time 61 Piperacillin Sod/Tazobactam Sod (Zosyn 3.375 In Ns 100ml) 100 mls @ 200 mls/hr IVPB STAT STA PRN Reason: Protocol Stop: 07/29/17 18:49 Last Admin: 07/29/17 18:41 Dose: 200 mls/hr - Scribe Statement The provider has reviewed the documentation as recorded by the Kiaraibe Karen Morales Provider Scribe Attestation: All medical record entries made by the Scribe were at my direction and personally dictated by me. I have reviewed the chart and agree that the record accurately reflects my personal performance of the history, physical exam, medical decision making, and the department course for this patient. I have also personally directed, reviewed, and agree with the discharge instructions and disposition. Disposition/Present on Arrival - Present on Arrival Any Indicators Present on Arrival: No History of DVT/PE: No History of Uncontrolled Diabetes: No Urinary Catheter: No History Surgical Site Infection Following: None - Disposition Have Diagnosis and Disposition been Completed?: Yes Diagnosis: Altered mental status, Urinary tract infection Disposition: HOSPITALIZED Disposition Time: 18:10 Patient Plan: Admission Patient Problems: Current Active Problems Problem Status Onset Altered mental status Acute Urinary tract infection Acute Condition: FAIR
[2017-07-29 16:55] LABS: ALKALINE PHOSPHATASE 109 U/L (38-126); ALT/SGPT 19 U/L (7-56); AST/SGOT 21 U/L (14-36); BILIRUBIN,TOTAL 0.3 mg/dL (0.2-1.3); BLOOD UREA NITROGEN 22 mg/dL (7-21); CALCIUM 10.8 mg/dL (8.4-10.5); CARBON DIOXIDE 24 mmol/L (21-33); CHLORIDE 101 mmol/L (98-107); GFR AFRICAN-AMERICAN > 60; GLUCOSE,RANDOM 126 mg/dL (70-110); LIPASE 270 U/L (23-300); MAGNESIUM 1.5 mg/dL (1.7-2.2); POTASSIUM 4.2 mmol/L (3.6-5.0); SODIUM 140 mmol/L (132-148); TOTAL PROTEIN 8.6 g/dL (5.8-8.3)
[2017-07-29 16:58] LABS: BASO # 0.03 K/mm3 (0.0-2.0); BASO % 0.2 % (0.0-3.0); EOS # 0.3 (0.0-0.7); EOS % 2.2 % (1.5-5.0); GRAN # 6.55 (1.4-6.5); GRAN % 50.9 % (50.0-68.0); HEMATOCRIT 30.2 % (36.0-48.0); LYMPH # 5.1 (1.2-3.4); LYMPH % 39.3 % (22.0-35.0); MEAN CELL VOLUME 75.9 fl (80.0-105.0); MEAN CORPUSCULAR HEMOGLOBIN 23.9 pg (25.0-35.0); MEAN CORPUSCULAR HGB CONC 31.5 g/dl (31.0-37.0); MEAN PLATELET VOLUME 8.5 fl (7.0-11.0); MONO % 7.4 % (1.0-6.0); RED CELL DISTRIBUTION WIDTH 17.7 % (11.5-14.5); WHITE BLOOD COUNT 12.9 10^3/ul (4.5-11.0)
[2017-07-29 17:05] LABS: INR 1.01 (0.93-1.08); PARTIAL THROMBOPLASTIN TIME 27.8 Seconds (23.7-30.8)
--- NOTE | 2017-07-29 17:15 | CT ---
PROCEDURE: CT HEAD WITHOUT CONTRAST. HISTORY: h/o cva - alt ms COMPARISON: 04/07/2007 CT head, MRI brain. TECHNIQUE: Axial computed tomography images were obtained through the head/brain without intravenous contrast. Radiation dose: Total exam DLP = 824.73 mGy-cm. This CT exam was performed using one or more of the following dose reduction techniques: Automated exposure control, adjustment of the mA and/or kV according to patient size, and/or use of iterative reconstruction technique. FINDINGS: HEMORRHAGE: No intracranial hemorrhage. BRAIN: No mass effect or edema. Evidence of old cortical and deep white matter infarctions in the distribution of the right middle cerebral artery. VENTRICLES: Unremarkable. No hydrocephalus. CALVARIUM: Unremarkable. PARANASAL SINUSES: Unremarkable as visualized. No significant inflammatory changes. MASTOID AIR CELLS: Unremarkable as visualized. No inflammatory changes. OTHER FINDINGS: None. IMPRESSION: No acute intracranial abnormalities. No significant findings to account for the clinical presentation. No significant interval change compared to the prior examination(s).
--- NOTE | 2017-07-29 17:16 | RAD ---
HISTORY: Altered mental status. Technique: Single view portable semi erect @ 16:50. COMPARISON: 04/07/2017 FINDINGS: LUNGS: No active pulmonary disease. PLEURA: No significant pleural effusion identified, no pneumothorax apparent. CARDIOVASCULAR: No radiographic findings to suggest acute or significant cardiovascular disease. OSSEOUS STRUCTURES: No significant abnormalities. VISUALIZED UPPER ABDOMEN: Normal. OTHER FINDINGS: None. IMPRESSION: No active disease. No significant interval change compared to the prior examination(s). Please note: No preliminary report/ innterpretation of this examination provided by emergency department personnel.
[2017-07-29 17:19] LABS: TROPONIN I < 0.01 ng/mL
[2017-07-29] MEDS ORDERED: Magnesium Sulfate 2 GM in Sodium Chloride 0.9% 100 ML IV ONE (17:30)
[2017-07-29 17:53] LABS: URINE APPEARANCE CLEAR (CLEAR); URINE BILIRUBIN NEGATIVE (NEGATIVE); URINE BLOOD LARGE (NEGATIVE); URINE COLOR LIGHT YELLOW (YELLOW); URINE GLUCOSE (UA) NEGATIVE (NEGATIVE); URINE KETONE NEGATIVE (NEGATIVE); URINE LEUKOCYTE ESTERASE SMALL Leu/uL (NEGATIVE); URINE PROTEIN 30 mg/dL (<30 mg/dL); URINE UROBILINOGEN 0.2 E.U./dL (<1 E.U./dL)
[2017-07-29 18:02] LABS: URINE BACTERIA MANY (NEG)
[2017-07-29] MEDS ORDERED: Piperacillin/Tazobact 3.375 gm 100 ML IVPB STA (18:20)
[2017-07-30] MEDS: Piperacillin/Tazobact 3.375 gm 100 ML IVPB SCH ×2 (00:37→05:51)
[2017-07-30 07:16] LABS: EOS % 0.1 % (1.5-5.0); GRAN # 17.63 (1.4-6.5); GRAN % 92.9 % (50.0-68.0); HEMATOCRIT 36.1 % (36.0-48.0); LYMPH # 0.9 (1.2-3.4); LYMPH % 4.5 % (22.0-35.0); MEAN CELL VOLUME 81.7 fl (80.0-105.0); MEAN CORPUSCULAR HEMOGLOBIN 26.2 pg (25.0-35.0); MEAN CORPUSCULAR HGB CONC 32.1 g/dl (31.0-37.0); MEAN PLATELET VOLUME 11.8 fl (7.0-11.0); MONO # 0.5 (0.1-0.6); MONO % 2.5 % (1.0-6.0); PLATELET COUNT 257 10^3/uL (120.0-450.0); RED CELL DISTRIBUTION WIDTH 15.5 % (11.5-14.5)
[2017-07-30 08:21] LABS: NEUTROPHIL 93 % (50.0-70.0)
[2017-07-30 08:22] LABS: ANISOCYTOSIS SLIGHT; GIANT PLATELETS PRESENT; HYPOCHROMIA SLIGHT; LARGE PLATELETS PRESENT; MICROCYTOSIS SLIGHT; PLATELET ESTIMATE NORMAL (NORMAL)
--- NOTE | 2017-07-30 10:18 | CARD ---
APPROVED REPORT EKG Measurement Heart [id number] AL 154P64 [id number] <Conclusion> Normal sinus rhythm Normal ECG
[2017-07-30] MEDS: Piperacillin/Tazobact 2.25gm 2.25 GM/100 ML BAG IVPB SCH ×2 (12:45→17:33)
[2017-07-30] MEDS: Insulin Reg-LOW-Coverage SC SCH ×4 (12:45→21:43)
--- NOTE | 2017-07-30 15:12 | HP ---
HISTORY OF PRESENT ILLNESS: The patient is a 71-year-old black female admitted on 07/29/2017. She has a history of multiple myeloma status post bone marrow transplant at [facility] with remission of multiple myeloma. 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 The patient was admitted to hospital with increasing speech impediment and decreasing use of the left upper and left lower extremity. The patient does have history of non-insulin diabetes mellitus, hypertension, hypercholesterolemia. She is awake, alert and oriented x4. Her speech is halting but not slurred, mildly dysarthric, but the patient is at loss for words at times. She has decreased strength in the left upper extremity approximately 4/5, in the left lower extremity it is approximately 4-5/5. PHYSICAL EXAMINATION: HEART: Regular sinus rhythm and carotids without bruits. CHEST: Clear to auscultation and percussion. ABDOMEN: Obese but benign. IMPRESSION: Worsening left hemiparesis and aphasia in a 71-year-old black female with history of myeloma status post bone marrow transplant. History of non-insulin diabetes mellitus, hypertension, hypercholesterolemia, history of CVA in the past. Reji Mays MD
[2017-07-31 03:18] VITALS: RESP 20; O2SAT 98
[2017-07-31] MEDS ORDERED: Pantoprazole 40 mg EC Tab PO SCH (06:00)
[2017-07-31] MEDS: Insulin Reg-LOW-Coverage SC SCH ×3 (09:27→18:45)
[2017-07-31] MEDS ORDERED: Gadodiamide 287 MG/ML VIAL (15ML) IV ONE (17:33)
[2017-07-31 17:36] VITALS: BP 132/82; TEMP 97.7
[2017-07-31 18:30] VITALS: PULSE 78
--- NOTE | 2017-08-01 08:49 | PN ---
DATE: 07/31/2017 SUBJECTIVE: A 71-year-old black female with a history of multiple myeloma, status post bone marrow transplant. The patient has also history of CVA with residual left hemiparesis and dysarthria. The patient was admitted with change in mental status with change of increasing weakness in the left upper and left lower extremity. The patient was also found to have an elevated white count and pyuria and bacteriuria. Today, the patient ambulated in the edwrad with me. Her speech has improved. Her strength in the left upper and left lower extremity has improved. Her ambulation is perfect. Her balance is good. She has no further symptoms. She has received courses of IV antibiotics. PLAN: Plan is to most likely discharge home to continue course of p.o. antibiotics and to follow up as an outpatient. The patient underwent an MRI today, results are pending. Reji Mays MD
--- NOTE | 2017-08-01 10:03 | MRI ---
PROCEDURE: MRI BRAIN WITH AND WITHOUT CONTRAST HISTORY: exac lue paresis COMPARISON: 04/07/2017 MRI TECHNIQUE: Multiplanar, multisequence MR images of the brain were obtained with and without intravenous contrast enhancement. 15 cc of Omniscan FINDINGS: HEMORRHAGE: No acute hemorrhage. There is minimal hemosiderin deposition at the site of the chronic right parietal infarct. DWI: No evidence of an acute or early subacute infarction. BRAIN PARENCHYMA: No mass,mass effect or edema. Chronic infarcts are seen in the right frontal and right parietal lobe extending into the deep white matter ENHANCEMENT: No abnormal intracranial enhancement. VENTRICLES: Unremarkable. No hydrocephalus. CRANIUM: Unremarkable. ORBITS: Grossly unremarkable. PARANASAL SINUSES/MASTOIDS: Clear VASCULAR SYSTEM: Skull base flow voids intact. OTHER FINDINGS: None . IMPRESSION: Chronic infarcts in the right hemisphere. No acute intracranial findings
--- NOTE | 2017-08-01 13:15 | DS ---
HISTORY OF PRESENT ILLNESS: The patient is a 71-year-old black female with history of multiple myeloma, status post treatment with bone marrow transplant, history of CVA with residual left hemiparesis. The patient in the hospital with worsening of her left hemiparesis and speech impairment. The patient also was found to have possible urosepsis. She was treated IV antibiotics. She had marked improvement over the last several days. She will be discharged in improved condition. To continue outpatient physical therapy and occupational therapy and also p.o. antibiotics for bladder infection. FINAL DISCHARGE DIAGNOSES: Change in mental status, worsening left hemiparesis, urinary tract infection, history of multiple myeloma. Reji Mays MD
--- NOTE | 2017-08-06 18:04 | PQF GENQUE ---
08/06/17 Dr. Mays, Any etiology for altered mental status? Thank you. Clarification of your documentation is requested to better reflect the severity of illness and intensity of treatment of your patient. Indicators present [] Specify: [] [] Specify: [] [] Specify: [] [] Specify: [] Location in the medical record that reflects the above clinical findings: [] Treatment Provided: [] PHYSICIAN'S RESPONSE Based on your medical judgment of the clinical indicators outlined above please clarify the following: [x] Practitioner response [] If unable to determine, please check the box, sign and date. Present On Admission (POA) Indicator: [x] Present at the time of admission [] Not present at the time of admission [] Clinically Undetermined In responding to this query, please exercise your independent professional judgment. The fact that a question is asked does not imply that any particular answer is desired or expected. Thank you for your clarification on this documentation. If you have any questions please call:[ ] * Thank you, [ ] head of marketing adometry SHALOM
--- NOTE | 2017-08-08 09:30 | PQF GENQUE ---
08/08/17 Dr. Mays, You signed the previous query form, but I do not see an answer for the question. Any etiology found for altered mental status? Thank you. Clarification of your documentation is requested to better reflect the severity of illness and intensity of treatment of your patient. Indicators present [] Specify: [] [] Specify: [] [] Specify: [] [] Specify: [] Location in the medical record that reflects the above clinical findings: [] Treatment Provided: [] PHYSICIAN'S RESPONSE Based on your medical judgment of the clinical indicators outlined above please clarify the following: [] Practitioner response [] If unable to determine, please check the box, sign and date. Present On Admission (POA) Indicator: [] Present at the time of admission [] Not present at the time of admission [] Clinically Undetermined In responding to this query, please exercise your independent professional judgment. The fact that a question is asked does not imply that any particular answer is desired or expected. Thank you for your clarification on this documentation. If you have any questions please call:[ ] * Thank you, [ ] predictive maintenance technician SHALOM
--- NOTE | 2017-08-09 08:41 | PQF GENQUE ---
08/09/17 Dr. Mays, Please indicate etiology of altered mental status. If none found, please state as such. Thank you. Clarification of your documentation is requested to better reflect the severity of illness and intensity of treatment of your patient. Indicators present [] Specify: [] [] Specify: [] [] Specify: [] [] Specify: [] Location in the medical record that reflects the above clinical findings: [] Treatment Provided: [] PHYSICIAN'S RESPONSE Based on your medical judgment of the clinical indicators outlined above please clarify the following: [x] Practitioner response [] If unable to determine, please check the box, sign and date. Present On Admission (POA) Indicator: [x] Present at the time of admission [] Not present at the time of admission [] Clinically Undetermined In responding to this query, please exercise your independent professional judgment. The fact that a question is asked does not imply that any particular answer is desired or expected. Thank you for your clarification on this documentation. If you have any questions please call:[ ] * Thank you, [ ] binding bench worker SHALOM
== END 2017-07-31 11:10 | disposition home or self-care (01) | DRG 690 ==
LOC: ED 16:17 → ERH 18:23 → 3RNO 21:25
PROVIDERS: ADMIT Internal Medicine; ATTEND Internal Medicine
DX: N39.0 Urinary tract infection, site not specified (principal); I69.354 Hemiplegia and hemiparesis following cerebral infarction affecting left non-dominant side; Z94.81 Bone marrow transplant status; R47.01 Aphasia; E11.9 Type 2 diabetes mellitus without complications; C90.01 Multiple myeloma in remission; Z94.84 Stem cells transplant status; R41.82 Altered mental status, unspecified; I10 Essential (primary) hypertension; K21.9 Gastro-esophageal reflux disease without esophagitis; E78.00 Pure hypercholesterolemia, unspecified; R47.1 Dysarthria and anarthria; Z79.899 Other long term (current) drug therapy; R40.2412 Glasgow coma scale score 13-15, at arrival to emergency department; D72.829 Elevated white blood cell count, unspecified

== ENCOUNTER 2017-08-07 23:15 | Inpatient (IN) | payer MEDICARE ==
[2017-08-07 23:39] VITALS: BMI 29.2
--- NOTE | 2017-08-07 23:59 | CT ---
EXAM: CT Head Without Intravenous Contrast EXAM DATE/TIME: 08/07/2017 11:39 PM CLINICAL HISTORY: 71 years old, female; Signs and symptoms; Altered mental status/memory loss; Additional info: Code stroke TECHNIQUE: Axial computed tomography images of the head/brain without intravenous contrast. All CT scans at this facility use one or more dose reduction techniques, viz.: automated exposure control; ma/kV adjustment per patient size (including targeted exams where dose is matched to indication; i.e. head); or iterative reconstruction technique. COMPARISON: CT - HEAD W/O CONTRAST 2017-07-29 16:43 FINDINGS: Brain: There is dilatation of sulci gyri and ventricles. There is no midline shift. There is decreased attenuation in periventricular white matter. There is an old right MCA distribution infarct, unchanged. There are no focal masses. There are no focal hemorrhages. Moore-white differentiation is visualized. Ventricles: See above Bones: Cranial vault is intact. Soft tissues: unremarkable Sinuses: There is no acute sinusitis. Ears and mastoids: Middle ears and mastoids are unremarkable. Orbits: Orbital contents are unremarkable. IMPRESSION: Old right MCA distribution infarct, similar finding seen on the prior study no acute intracranial abnormality, no bleed
--- NOTE | 2017-08-08 00:01 | ED PDOC ---
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 Notes patient was seen in emergency department recently for UTI and finished medications two days ago and unsure if symptoms are due to medication side effects. Daughter notes some diarrhea, currently resolved but denies any other complaints at this time. Patient reports nausea and some abdominal pain but denies any back pain or any other complaints at this time. PMD: Dr. Biggs 08/08/17 04:13 Time/Duration: Other (45 minutes) Symptom Onset: Sudden Symptom Course: Improving Activities at Onset: Rest Context: Home Past Medical History - Provider Review Nursing Documentation Reviewed: Yes - Infectious Disease Hx of Infectious Diseases: None - Tetanus Immunization Tetanus Immunization: Unknown - Reproductive Menopause: Yes - Cardiac Hx Hypertension: Yes - Pulmonary Hx Respiratory Disorders: No - Neurological Hx Neurological Disorder: No Hx Transient Ischemic Attacks (TIA): Yes - HEENT Hx HEENT Disorder: No - Renal Hx Renal Disorder: No - Endocrine/Metabolic Hx Diabetes Mellitus Type 2: Yes - Hematological/Oncological Hx Blood Disorders: No Hx Cancer: Yes (multiple myeloma in remission) Other/Comment: stem cell transplant 2012 - Integumentary Hx Dermatological Disorder: No - Musculoskeletal/Rheumatological Hx Falls: Yes (past) - Gastrointestinal Hx Gastroesophageal Reflux: Yes - Genitourinary/Gynecological Hx Genitourinary Disorders: No - Psychiatric Hx Psychophysiologic Disorder: No Hx Substance Use: No - Surgical History Other/Comment: stem cell transplant 2012 - Anesthesia Hx Anesthesia: Yes Hx Anesthesia Reactions: No Hx Malignant Hyperthermia: No - Suicidal Assessment Feels Threatened In Home Enviroment: No Family/Social History - Physician Review Nursing Documentation Reviewed: Yes Family/Social History: No Known Family HX Smoking Status: Never Smoked Hx Alcohol Use: No Hx Substance Use: No Hx Substance Use Treatment: No Allergies/Home Meds Allergies/Adverse Reactions: Allergies No Known Allergies Allergy (Verified 08/07/17 23:39) Home Medications: Home Meds Medication Instructions Recorded Confirmed Metformin HCl [Glucophage] 500 mg PO BID 02/08/16 08/08/17 Aspirin [Lo-Dose Aspirin EC] 81 mg PO DAILY 06/27/17 08/08/17 Pantoprazole [Protonix EC Tab] 40 mg PO DAILY 06/27/17 08/08/17 Clopidogrel [Plavix] 1 tab PO DAILY 07/29/17 08/08/17 Atorvastatin [Lipitor] 1 tab PO DAILY 08/08/17 08/08/17 Review of Systems - Physician Review All systems were reviewed & negative as marked: Yes - Review of Systems Gastrointestinal: Abdominal Pain, Diarrhea (resolved), Nausea Musculoskeletal: absent: Back Pain Neurological: Gait Changes, Other (tremors, slurred speech) Physical Exam Vital Signs Reviewed: Yes Vital Signs Temp Pulse Resp BP Pulse Ox 08/08/17 02:00 98.7 F 74 18 121/68 97 08/08/17 00:53 73 18 122/66 100 08/07/17 23:40 98.5 F 80 17 135/74 100 Temperature: Afebrile Blood Pressure: Normal Pulse: Regular Respiratory Rate: Normal Appearance: Positive for: Well-Appearing, Non-Toxic, Comfortable Pain Distress: None Mental Status: Positive for: Alert and Oriented X 3 Finger Stick Blood Glucose: 144 - Systems Exam Head: Present: Atraumatic, Normocephalic Pupils: Present: PERRL Extroacular Muscles: Present: EOMI Conjunctiva: Present: Normal Mouth: Present: Moist Mucous Membranes Neck: Present: Normal Range of Motion Respiratory/Chest: Present: Clear to Auscultation, Good Air Exchange. No: Respiratory Distress, Accessory Muscle Use Cardiovascular: Present: Regular Rate and Rhythm, Normal S1, S2. No: Murmurs Abdomen: Present: Normal Bowel Sounds. No: Tenderness, Distention, Peritoneal Signs Back: Present: Normal Inspection Upper Extremity: Present: Normal Inspection. No: Cyanosis, Edema Lower Extremity: Present: Normal Inspection. No: Edema Neurological: Present: GCS=15, CN II-XII Intact, Speech Normal Skin: Present: Warm, Dry, Normal Color. No: Rashes Psychiatric: Present: Alert, Oriented x 3, Normal Insight, Normal Concentration Medical Decision Making ED Course and Treatment: 08/07/17 23:30 Impression: A 71 year old female with slurred speech, tremors, abdominal pain and nausea. Plan: -- EKG -- chest xray -- CT head -- CT abd/pelvis -- labs -- Urinalysis -- Reassess and disposition Prior Visits: Notes and results from previous visits were reviewed. Patient was last seen in the emergency department on 07/29/17 for evaluation of generalized weakness. Progress Notes: 08/07/17 23:39 Code stroke called. discussed wtih dr alison ferrell [facility], resolving symptoms not tpa candiate CT Head Without Intravenous Contrast FINDINGS: Brain: There is dilatation of sulci gyri and ventricles. There is no midline shift. There is decreased attenuation in periventricular white matter. There is an old right MCA distribution infarct, unchanged. There are no focal masses. There are no focal hemorrhages. Moore-white differentiation is visualized. Ventricles: See above Bones: Cranial vault is intact. Soft tissues: unremarkable Sinuses: There is no acute sinusitis. Ears and mastoids: Middle ears and mastoids are unremarkable. Orbits: Orbital contents are unremarkable. IMPRESSION: Old right MCA distribution infarct, similar finding seen on the prior study no acute intracranial abnormality, no bleed Dictated and Authenticated by: Yovana Lozada MD 08/07/2017 11:59 PM Eastern Time ([place] & [place]) 08/08/17 00:14 EKG: Ordered, reviewed, and independently interpreted the EKG. Rate : 84 BPM Rhythm : NSR Interpretation : No ST/T wave changes CT Abdomen and Pelvis Without Intravenous Contrast FINDINGS: Artifacts: Streak artifact degrades image quality.Motion artifact degrades image quality. Lower thorax: There is deep atelectasis are again the lung bases. Heart size is normal. There are coronary artery calcifications. ABDOMEN: Liver: unremarkable Gallbladder and bile ducts: unremarkable Pancreas: unremarkable Spleen: unremarkable Adrenals: unremarkable Kidneys and ureters: unremarkable Stomach and bowel: Stomach is distended with ingested material. Rotation is normal. Small bowel is mildly distended with fluid and air. There is no obstruction. Terminal ileum is distended with fluid. Appendix is unremarkable. Streak and motion limits evaluation of the colon. There is moderate stool in the colon. Appendix: See above. PELVIS: Bladder: unremarkable Reproductive: Uterus and adnexal structures are unremarkable. ABDOMEN and PELVIS: Intraperitoneal space: There is no free air or free fluid. Bones/joints: There are degenerative changes in the spine. There are lucent lesions in the right ilium. There is abnormal architecture. There is a pathologic fracture through the region of the acetabulum. There is an exophytic component extending into the right pelvis. Soft tissues: unremarkable Vasculature: There are vascular calcifications. Lymph nodes: There is no pathologic adenopathy. 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 Dictated and Authenticated by: Yovana Lozada MD 08/08/2017 1:11 AM Eastern Time ([place] & [place]) 08/08/17 01:20 Chest xray: No active disease, interpreted by me. 08/08/17 01:[address] Mays, who accepts and agrees with plan for patient to be admitted to hospital. 08/08/17 04:14 noted simialr presentation in past, with uti. antibiotifcs soded. - Lab Interpretations Lab Results: 08/08/17 00:05 08/08/17 00:05 Lab Results 08/08/17 00:05: Blood Type O POSITIVE, Antibody Screen Negative, BBK History Checked Patient has bt 08/08/17 00:05: Sodium 137, Potassium 4.9, Chloride 101, Carbon Dioxide 23, Anion Gap 18, BUN 38 H, Creatinine 1.7 H, Est GFR ( Amer) 36, Est GFR ( Non-Af Amer) 30, Random Glucose 132 H, Calcium 10.3, Magnesium 1.7, Total Bilirubin 0.3, AST 34, ALT 25, Alkaline Phosphatase 111, Lactate Dehydrogenase 303 L, Total Creatine Kinase 125, Troponin I 0.02 D, Total Protein 8.6 H, Albumin 4.2, Globulin 4.4, Albumin/Globulin Ratio 1.0 L, Triglycerides 114, Cholesterol 118 L, LDL Cholesterol Direct 59, HDL Cholesterol 32 08/08/17 00:05: PT 11.4, INR 1.06, APTT 29.6 08/08/17 00:05: WBC 12.7 H D, RBC 3.85, Hgb 9.0 L D, Hct 28.7 L, MCV 74.5 L D, MCH 23.4 L, MCHC 31.4, RDW 17.4 H, Plt Count 394, MPV 8.5, Gran % 58.1, Lymph % (Auto) 31.3, [place] % (Auto) 8.1 H, Eos % (Auto) 2.3, Baso % (Auto) 0.2, Gran # 7.41 H, Lymph # 4.0 H, [place] # 1.0 H, Eos # 0.3, Baso # 0.02 I have reviewed the lab results: Yes - RAD Interpretation Radiology Orders: 08/07/17 23:39 HEAD W/O (CODE STROKE) [CT] Stat CHEST PORTABLE [RAD] Stat 08/07/17 23:40 ABD & PELVIS W/O PO OR IV CONT [CT] Stat - EKG Interpretation Interpreted by ED Physician: Yes Type: 12 lead EKG - Medication Orders Current Medication Orders: Discontinued Medications Ceftriaxone Sodium (Rocephin 1 Gram Ivpb) 1 gm in 100 mls @ 200 mls/hr IVPB STAT STA PRN Reason: Protocol Stop: 08/08/17 03:10 Last Admin: 08/08/17 03:09 Dose: 200 mls/hr eMAR Start Stop Document 08/08/17 03:09 TAZ (Rec: 08/08/17 03:10 TAZ [id number]) Intravenous Solution Start Date 08/08/17 Start Time 03:10 NIHSS Scale (Marlin) Time Performed: 04:13 - How Severe is the Stoke Baseline Level of Consciousness: 0=Alert LOC to Questions: 0=Both comments correct LOC to commands: 0=Obeys both correctly Best Gaze: 0=Normal Visual: 0=No visual loss Facial: 0=Normal Motor Arm - Left: 0=No drift Motor Arm - Right: 0=No drift Motor Leg - Left: 0=No drift Motor Leg - Right: 0=No drift Limb Ataxia: 0=Absent Sensory: 0=Normal Best Language: 0=No aphasia Dysarthia: 0=Normal articulation Extinction & Inattention (Neglect): 0=Normal, no object Score: 0 Risk Level: No Stroke Risk rTPA Inclusion/Exclusion - Refusal of Treatment Patient Refused Treatment: No - Inclusion Criteria for Altepase Patient is 18 years or Older: Yes The Clinical Diagnosis of Ischemic Stroke That is Causing a Potentially Disabling Neurological Deficit: No Time of Onset is Well Established to be Less Than 270 Minute Before Treatment Would Begin: Yes Risk/Benefit Discussed With Patient/Family Member Present: Yes - Scribe Statement The provider has reviewed the documentation as recorded by the Kiaraibe Kendell Billy Provider Scribe Attestation: All medical record entries made by the Scribe were at my direction and personally dictated by me. I have reviewed the chart and agree that the record accurately reflects my personal performance of the history, physical exam, medical decision making, and the department course for this patient. I have also personally directed, reviewed, and agree with the discharge instructions and disposition. Disposition/Present on Arrival - Present on Arrival Any Indicators Present on Arrival: No History of DVT/PE: No History of Uncontrolled Diabetes: Yes Urinary Catheter: No History of Decub. Ulcer: No History Surgical Site Infection Following: None - Disposition Have Diagnosis and Disposition been Completed?: Yes Diagnosis: Urinary tract infection, Slurred speech Disposition: HOSPITALIZED Disposition Time: 04:00 Patient Problems: Current Active Problems Problem Status Onset Slurred speech Acute Urinary tract infection Acute Condition: STABLE
[2017-08-08 00:24] LABS: BASO # 0.02 K/mm3 (0.0-2.0); BASO % 0.2 % (0.0-3.0); EOS # 0.3 (0.0-0.7); EOS % 2.3 % (1.5-5.0); GRAN # 7.41 (1.4-6.5); GRAN % 58.1 % (50.0-68.0); HEMATOCRIT 28.7 % (36.0-48.0); LYMPH % 31.3 % (22.0-35.0); MEAN CELL VOLUME 74.5 fl (80.0-105.0); MEAN CORPUSCULAR HEMOGLOBIN 23.4 pg (25.0-35.0); MEAN CORPUSCULAR HGB CONC 31.4 g/dl (31.0-37.0); MEAN PLATELET VOLUME 8.5 fl (7.0-11.0); MONO % 8.1 % (1.0-6.0); RED CELL DISTRIBUTION WIDTH 17.4 % (11.5-14.5); WHITE BLOOD COUNT 12.7 10^3/ul (4.5-11.0)
[2017-08-08 00:30] LABS: INR 1.06 (0.93-1.08); PARTIAL THROMBOPLASTIN TIME 29.6 Seconds (23.7-30.8)
[2017-08-08 00:35] LABS: BILIRUBIN,TOTAL 0.3 mg/dL (0.2-1.3); CALCIUM 10.3 mg/dL (8.4-10.5); MAGNESIUM 1.7 mg/dL (1.7-2.2); POTASSIUM 4.9 mmol/L (3.6-5.0); TOTAL PROTEIN 8.6 g/dL (5.8-8.3)
[2017-08-08 00:46] LABS: TROPONIN I 0.02 ng/mL
--- NOTE | 2017-08-08 01:11 | CT ---
EXAM: CT Abdomen and Pelvis Without Intravenous Contrast EXAM DATE/TIME: 08/07/2017 11:40 PM CLINICAL HISTORY: 71 years old, female; Pain; Abdominal pain; Generalized; Additional info: Abd pain diarrhea TECHNIQUE: Axial computed tomography images of the abdomen and pelvis without intravenous contrast. All CT scans at this facility use one or more dose reduction techniques, viz.: automated exposure control; ma/kV adjustment per patient size (including targeted exams where dose is matched to indication; i.e. head); or iterative reconstruction technique. Coronal and sagittal reformatted images were created and reviewed. COMPARISON: CR - ABDOMEN (FLAT PLATE) 1VIEW 2016-02-09 13:30 FINDINGS: Artifacts: Streak artifact degrades image quality.Motion artifact degrades image quality. Lower thorax: There is deep atelectasis are again the lung bases. Heart size is normal. There are coronary artery calcifications. ABDOMEN: Liver: unremarkable Gallbladder and bile ducts: unremarkable Pancreas: unremarkable Spleen: unremarkable Adrenals: unremarkable Kidneys and ureters: unremarkable Stomach and bowel: Stomach is distended with ingested material. Rotation is normal. Small bowel is mildly distended with fluid and air. There is no obstruction. Terminal ileum is distended with fluid. Appendix is unremarkable. Streak and motion limits evaluation of the colon. There is moderate stool in the colon. Appendix: See above. PELVIS: Bladder: unremarkable Reproductive: Uterus and adnexal structures are unremarkable. ABDOMEN and PELVIS: Intraperitoneal space: There is no free air or free fluid. Bones/joints: There are degenerative changes in the spine. There are lucent lesions in the right ilium. There is abnormal architecture. There is a pathologic fracture through the region of the acetabulum. There is an exophytic component extending into the right pelvis. Soft tissues: unremarkable Vasculature: There are vascular calcifications. Lymph nodes: There is no pathologic adenopathy. 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
[2017-08-08 02:19] LABS: URINE BILIRUBIN NEGATIVE (NEGATIVE); URINE BLOOD LARGE (NEGATIVE); URINE GLUCOSE (UA) NEGATIVE (NEGATIVE); URINE KETONE NEGATIVE (NEGATIVE); URINE LEUKOCYTE ESTERASE LARGE Leu/uL (NEGATIVE); URINE PROTEIN NEGATIVE mg/dL (<30 mg/dL); URINE UROBILINOGEN 0.2 E.U./dL (<1 E.U./dL)
[2017-08-08 02:41] LABS: URINE APPEARANCE SL CLOUDY (CLEAR); URINE COLOR YELLOW (YELLOW)
[2017-08-08] MEDS ORDERED: cefTRIAXone 1 gm 1 GM/100 ML BAG IVPB STA (02:41)
[2017-08-08 02:46] LABS: URINE BACTERIA OCC (NEG)
--- NOTE | 2017-08-08 08:51 | RAD ---
HISTORY: code stroke COMPARISON: 07/29/2017 FINDINGS: LUNGS: No active pulmonary disease. PLEURA: No significant pleural effusion identified, no pneumothorax apparent. CARDIOVASCULAR: Normal. OSSEOUS STRUCTURES: No significant abnormalities. VISUALIZED UPPER ABDOMEN: Normal. OTHER FINDINGS: None. IMPRESSION: No active disease.
[2017-08-08] MEDS: Pantoprazole 40 mg EC Tab PO SCH (09:49)
[2017-08-08] MEDS ORDERED: Sodium Chloride 0.9% 1,000 ML IV SCH (14:30)
--- NOTE | 2017-08-08 18:09 | HP ---
HISTORY OF PRESENT ILLNESS: A 71-year-old black female with recent history of CVA, history of multiple myeloma in the distant past status post stem cell transplant at [facility]. The patient has had multiple admissions recently for increasing weakness in the left upper and left lower extremity with also dysarthria and expressive aphagia. The patient was readmitted last night. She had recently been admitted for urosepsis. She is admitted last night with swallowing difficulty, speech problems, drop in her hemoglobin to 9, elevated white count of 12,700, platelet count was 394,000, which is okay. She was also found on laboratory data an elevated BUN and creatinine of 38 and 1.7. LDH of 303, total protein of 8.6, normal albumin of 4.2. Urine showed large blood, large leukocyte esterase, 10 to 15 WBCs, occasional bacteria. The patient was afebrile on admission and blood pressure 104/64. The patient did have a head CT, which was negative. She has CT of the abdomen and pelvis also, which showed some streak artifact, some atelectasis in the lung bases. 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 We will further evaluate this process in the pelvis. There also is a pathological fracture to the region of the acetabulum and there is an exophytic component extending into the right pelvis as well as the right iliac region that needs to be evaluated. PHYSICAL EXAMINATION: GENERAL: This is a well-developed, well-nourished black female. She is not conversant today. She is not making any sound today. She has had difficulty with speech in the past. EXTREMITIES: She has increased weakness in the left upper and left lower extremity, possibly 4-5/5 bilaterally of both left upper and left lower extremity. She is awake and she is alert. IMPRESSION AND PLAN: She did tolerate her diet. She is having a swallowing evaluation. She will need evaluation of her mass and also evaluation of her kidney function and another serum protein electrophoresis. Reji Mays MD
[2017-08-08] MEDS ORDERED: levETIRAcetam 1,000 MG in Sodium Chloride 0.9% 100 ML IV ONE (18:30)
[2017-08-08] MEDS ORDERED: Sodium Chloride 0.45% 1,000 ML IV SCH (18:45)
--- NOTE | 2017-08-08 19:13 | PCM.RRT ---
<Petrona Winston - Last Filed: 08/08/17 20:11> DRY JANITOR Nurse Assessment - Situation Date: 08/08/17 Time DRY JANITOR was called: 18:21 DRY JANITOR Responder Arrival Time: 18:23 DRY JANITOR Location:: [address] [place] [address] Room Number: [id number] DRY JANITOR Reason for Call: Not Responding to Urgent Treatment DRY JANITOR Called By: Other Disciplines - IV IV Inserted during DRY JANITOR?: No IV Fluids Initiated During DRY JANITOR?: CONTINOUS iv FLUIDS 0.9 @ 60 ml/hr - Respiratory Oxygen Delivery Method: Nasal Cannula @L/min Oxygen Flow Rate: 2 Received Nebulizer Treatments:: No Was the Patient Ventilated with Bag/Mask 100% O2?: No Secretions Suctioned?: No Was the Patient Intubated?: No Was the Patient Placed on a Ventilator?: No - Medication Medications Administered During DRY JANITOR: 2nd seizure 18:45 and ativan 2mg IVP was ordered, as well as Keppra IV - Diagnostic Test Ordered EKG: Yes CT Scan: Yes (aFTER kEPPRA ADMINISTRATION) CPR started during DRY JANITOR?: No - Vital Signs Vital Sign: Rapid Response Vital Sign Blood Pressure 168/100 Pulse Rate 128 Respiratory Rate 22 Temperature 98.2 F Oxygen Saturation 96 - Finger Stick Blood Glucose Finger Stick Blood Glucose: 211 - Time DRY JANITOR Ended Time DRY JANITOR Ended: 18:30 - Vital Signs at end of DRY JANITOR Vital Signs at end of DRY JANITOR: Rapid Response End Vital Sign Blood Pressure 188/98 Pulse Rate 154 Respiratory Rate 22 Temperature 98.2 F O2 Sat by Pulse Oximetry 96 - Recommendations Notifications: Attending Physician, Family or Designated Caregiver I.Reason for DRY JANITOR - A) Acute Change in Patient: Subjective: Patient is a 71 year old female with past medical history of 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 Patient was previously being treated for urosepsis. Rapid response was called at 6:21pm. Patient had a seizure that was witnessed by the nurses. Per nursing seizure lasted 2 1/2 minutes. When DRY JANITOR responded, seizure concluded and patient was anxious. Patient was hypertensive and tachycardic at this time. Keppra, Ativan, Head CT were ordered. Neurology was consulted. STAT EKG showed sinus tachycardia. At 6:45pm patient had another seizure that lasted 3 minutes. Facial and upper extremity movements with deviation to the left was noted. Ativan 2mg was administered. Patient also recieved Keppra 1gm loading dose. ICU consult was placed. Patient will go for CT head once stable. Daughter was at the bedside, updated her about patients condition. Call was placed to PMD , voice message was left, awaiting call back. - Respiratory Oxygen Delivery Method: Nasal Cannula @L/min Oxygen Flow Rate: 2 - Constitutional Appears: No Acute Distress Additional Comments: Anxious - Head Head Exam: ATRAUMATIC, NORMAL INSPECTION - Eyes Eye Exam: EOMI, Normal appearance - Respiratory Exam Respiratory Exam: Clear to Ausculation Bilateral, NORMAL BREATHING PATTERN. absent: Rales, Rhonchi, Wheezes - Cardiovascular Exam Cardiovascular Exam: Tachycardia, +S1, +S2 - GI/Abdominal Exam GI & Abdominal Exam: Soft. absent: Guarding, Rigid, Tenderness - Neurological Exam Neurological Exam: Alert, Awake Additional exam: With expressive aphasia - Extremities Exam Extremities Exam: Full ROM, Normal Inspection Plan - Assessment of Findings&Treatment Plan 71 year old female with past medical history of CVA x 2 (03/2016 and 03/2017), HTN , DM, multiple myeloma s/p stem cell transplant presented with slurred speech and tremors, rapid response was called for seizure activity 1. CT head ordered, to be done when patient is stable 2. Ativan 2mg Q6H prn seizure 3. Keppra 1 gm x 1 dose 4. EKG showing sinus tachycardia 5. EEG ordered 6. Diet: NPO 7. Fluids: 1/2 NS @ 75 cc/hr 8. Seizure, aspiration precautions, keep HOB elevated 30 degrees 9. Neurology on consult, f/u recommendations 10. ICU on consult, f/u recommendations Plan d/w attending Dr Kay <Saurabh Kay - Last Filed: 08/09/17 11:22> DRY JANITOR Nurse Assessment - Vital Signs Vital Sign: Rapid Response Vital Sign Blood Pressure 168/100 Pulse Rate 128 Respiratory Rate 22 Temperature 98.2 F Oxygen Saturation 96 - Vital Signs at end of DRY JANITOR Vital Signs at end of DRY JANITOR: Rapid Response End Vital Sign Blood Pressure 188/98 Pulse Rate 154 Respiratory Rate 22 Temperature 98.2 F O2 Sat by Pulse Oximetry 96 Attending/Attestation - Attestation I have personally seen and examined this patient.: Yes I have fully participated in the care of the patient.: Yes I have reviewed all pertinent clinical information, including history, physical exam and plan: Yes Notes (Text): 08/09/17 11:17 71 yrs female with a PMHx DM2, Dyslipidemia, Multiple Myeloma (reported to be in remission since stem cell txplant in 2011), CVA x 2 was admitted with UTI and dehydration, had rapid response as she was found to have sizure on the floor Patient was noted to have 2 seizures today both reportedly lasting about 2-3 minutes. Patient was given ativan 2 mg.She is able to main tain air way.We will give loading dose of Keppra 1 gram,we will get CT scan of head, Neurology and ICU evaluation.Patient will be kept NPO, will monitor Neuro check . Management plan was discussed with patient daughter. Education was provided.
--- NOTE | 2017-08-08 19:51 | CP.PCM.CON ---
<Kaci Valdez - Last Filed: 08/08/17 20:30> History of Present Illness - History of Present Illness History of Present Illness: Critical Care Consult note for Dr. Durán Reason for Consult: seizure activity Please note history from daughter, Selena, at bedside as patient is postictal 71 year old AA female PMHx multiple myeloma s/p bone marrow transplant 2011, 2 CVAs [March 2016 and March 2017] with residual L sided deficit, aphasia, and dysarthria, HTN, HLD, and DM2 presented to ED with weakness and slurred speech on 08/07. Patient was brought in by EMS after her daughter noticed that around 10:30pm on 08/07 patient walked to the door foaming at her mouth and with jerking movements with no loss of bladder/bowel control. In the ED the patient was not as communicative as she was at baseline but complained of her head spinning and her eyes moving "up and down" and reported that her "words weren't coming out." Patient had recently completed a dose of Bactrim for a UTI 2 days prior to admission to ER which was diagnosed 2 weeks ago. Since discharge, her daughter noticed that patent had been declining. She did also have multiple episodes nonbloody nonmelanotic diarrhea every 2 hours a day before she came to ED which resolved after the patient took 2 Imodium. Patient was admitted to TELE floor. [employer] was called 08/08 as patient had 2 witnessed seizures. [employer] events noted below : "Rapid response was called at 6:21pm. Patient had a seizure that was witnessed by the nurses. Seizure lasted 2 1/2 minutes. When C[employer] K[employer]TLE responded, seizure concluded and patient was anxious. Patient was hypertensive and tachycardic at this time. Keppra, Ativan, Head CT were ordered. Neurology was consulted. STAT EKG showed sinus tachycardia. At 6:45pm patient had another seizure that lasted 3 minutes. Facial and upper extremity movements with deviation to the left was noted. Ativan 2mg was administered. Patient also recieved Keppra 1gm loading dose. ICU consult was placed. Patient will go for CT head once stable. Daughter was at the bedside, updated her about patients condition. Call was placed to PMD, voice message was left, awaiting call back." PMD: Davon PMHx: multiple myeloma s/p bone marrow transplant 2011, 2 CVAs [March 2016 and March 2017] with residual L sided deficit, aphasia, and dysarthria, HTN, HLD, and DM2 Recent Hospitalization: 2 weeks admitted at [facility] on 07/29 for speech impediment and decreasing use of LUE and LLE- found to have UTI PSurgHx: denies Meds: please see chart ALL: NKDA FamHx: mother bladder ca SocHx: denies EtOH, tobacco, drug use ROS: unobtainable as patient is post ictal Review of Systems - Review of Systems Systems not reviewed;Unavailable: Acuity of Condition (potictal) Past Patient History - Infectious Disease Hx of Infectious Diseases: None - Tetanus Immunizations Tetanus Immunization: Unknown - Past Medical History & Family History Past Medical History?: Yes - Past Social History Smoking Status: Never Smoked - CARDIAC Hx Hypertension: Yes - PULMONARY Hx Respiratory Disorders: No - NEUROLOGICAL Hx Neurological Disorder: No Hx Transient Ischemic Attacks (TIA): Yes - HEENT Hx HEENT Problems: No - RENAL Hx Chronic Kidney Disease: No - ENDOCRINE/METABOLIC Hx Diabetes Mellitus Type 2: Yes - HEMATOLOGICAL/ONCOLOGICAL Hx Blood Disorders: No Hx Cancer: Yes (multiple myeloma in remission) Other/Comment: stem cell transplant 2012 - INTEGUMENTARY Hx Dermatological Problems: No - MUSCULOSKELETAL/RHEUMATOLOGICAL Hx Falls: Yes (past) - GASTROINTESTINAL Hx Gastroesophageal Reflux: Yes - GENITOURINARY/GYNECOLOGICAL Hx Genitourinary Disorders: No - PSYCHIATRIC Hx Psychophysiologic Disorder: No Hx Substance Use: No - SURGICAL HISTORY Other/Comment: stem cell transplant 2012 - ANESTHESIA Hx Anesthesia: Yes Hx Anesthesia Reactions: No Hx Malignant Hyperthermia: No Meds Allergies/Adverse Reactions: Allergies Allergy/AdvReac Type Severity Reaction Status Date / Time No Known Allergies Allergy Verified 08/07/17 23:39 - Medications Medications: Current Medications Aspirin (Ecotrin) 81 mg PO DAILY [facility] Last Admin: 08/08/17 09:49 Dose: 81 mg Ciprofloxacin (Cipro) 250 mg PO Q12 [facility] PRN Reason: Protocol Stop: 08/09/17 09:17 Last Admin: 08/08/17 09:48 Dose: 250 mg Clopidogrel Bisulfate (Plavix) 75 mg PO DAILY [facility] Last Admin: 08/08/17 09:49 Dose: 75 mg Sodium Chloride (Sodium Chloride 0.45%) 1,000 mls @ 75 mls/hr IV .[id number] [facility] Last Admin: 08/08/17 19:05 Dose: 75 mls/hr Lisinopril (Zestril) 20 mg PO DAILY [facility] Last Admin: 08/08/17 09:48 Dose: 20 mg Lorazepam (Ativan) 2 mg IVP Q6H PRN; Protocol PRN Reason: Seizure activity Pantoprazole Sodium (Protonix Ec Tab) 40 mg PO DAILY [facility] Last Admin: 08/08/17 09:49 Dose: 40 mg Physical Exam - Constitutional Appears: Confused - Head Exam Head Exam: ATRAUMATIC, NORMAL INSPECTION, NORMOCEPHALIC - Eye Exam Eye Exam: Normal appearance, PERRL. absent: Conjunctival injection, Scleral icterus - ENT Exam ENT Exam: Mucous Membranes Dry - Neck Exam Neck exam: Positive for: Normal Inspection - Respiratory Exam Respiratory Exam: Clear to Auscultation Bilateral, NORMAL BREATHING PATTERN. absent: Accessory Muscle Use, Rales, Rhonchi, Wheezes, Respiratory Distress - Cardiovascular Exam Cardiovascular Exam: Tachycardia, REGULAR RHYTHM, +S1, +S2. absent: Systolic Murmur - GI/Abdominal Exam GI & Abdominal Exam: Normal Bowel Sounds, Soft. absent: Firm, Guarding - Extremities Exam Extremities exam: Positive for: normal capillary refill, normal inspection, pedal pulses present. Negative for: pedal edema - Neurological Exam Neurological exam: Altered (potictal) - Psychiatric Exam Additional comments: confused- potictal - Skin Skin Exam: Dry, Intact, Normal Color, Warm Results - Vital Signs Recent Vital Signs: Last Vital Signs Temp 98.2 F 08/08/17 12:00 Pulse 88 08/08/17 14:00 Resp 20 08/08/17 12:00 BP 131/77 08/08/17 12:00 Pulse Ox 98 08/08/17 06:00 - Labs Result Diagrams: 08/08/17 00:05 08/08/17 00:05 Labs: Laboratory Results - last 24 hr 08/08/17 02:08 Urine Color Yellow Urine Appearance Sl cloudy Urine pH 6.0 Ur Specific Friendship 1.010 Urine Protein Negative Urine Glucose (UA) Negative Urine Ketones Negative Urine Blood Large H Urine Nitrate Negative Urine Bilirubin Negative Urine Urobilinogen 0.2 Ur Leukocyte Esterase Large H Urine RBC 5 - 10 Urine WBC 10 - 15 Ur Epithelial Cells 1 - 3 Urine Bacteria Occ Assessment & Plan - Assessment and Plan (Free Text) Assessment: 71 year old AA female PMHx multiple myeloma s/p bone marrow transplant 2011, 2 CVAs [March 2016 and March 2017] with residual L sided deficit, aphasia, and dysarthria, HTN, HLD, and DM2 presented to ED with weakness and slurred speech on 08/07. ICU consulted for seizure activity Plan: Neuro: -new onset seizures -Hx of 2 CVAs [March 2016 and March 2017] -CT head: -Ativan 2mg ivp q1h prn seizure -Patient received loading dose Keppra -f/u ABG at 18:30 -f/u Brain w/o contrast -f/u EEG -Dr Delores Tyler neuro consulted Cardio: -hx of HTN and HLD -ASA 81mg po daily -Plavix 75mg po daily -Lisinopril 20mg po daily -Atorvastatin 40mg po hs Respiratory: -no acute issues GI: -no acute issues Endocrine: -Hx of DM2 -HgbA1c 7.0 -home metformin on hold -Accucheck ACHS -RISS low Heme/Onc: -hx of multiple myeloma s/p BM transfusion in 2011 currently in remission -Dr Mo heme/onc consulted ID: -hx of UTI -f/u Urine culture -Cipro 250mg po q12 GI ppx: Protonix 40mg po qdaily DVT ppx: SCDs Fluids: 1/2NS @ 75cc Diet: NPO Precautions: seizure, aspiration, fall risk, neurocheck q2, HOB @ 30degrees, speech and swallow eval, PT/OT Code status: full code Case discussed with Dr. Leeanna Valdez PG2 <Yash Durán Q - Last Filed: 08/08/17 21:05> Meds - Medications Medications: Current Medications Aspirin (Ecotrin) 81 mg PO DAILY [facility] Last Admin: 08/08/17 09:49 Dose: 81 mg Atorvastatin Calcium (Lipitor) 40 mg PO DIN [facility] Ciprofloxacin (Cipro) 250 mg PO Q12 [facility] PRN Reason: Protocol Stop: 08/09/17 09:17 Last Admin: 08/08/17 09:48 Dose: 250 mg Clopidogrel Bisulfate (Plavix) 75 mg PO DAILY [facility] Last Admin: 08/08/17 09:49 Dose: 75 mg Sodium Chloride (Sodium Chloride 0.45%) 1,000 mls @ 75 mls/hr IV .[id number] [facility] Last Admin: 08/08/17 19:05 Dose: 75 mls/hr Insulin Human Lispro (Humalog Low) 0 units SC ACHS [facility] PRN Reason: Protocol Lisinopril (Zestril) 20 mg PO DAILY [facility] Last Admin: 08/08/17 09:48 Dose: 20 mg Lorazepam (Ativan) 2 mg IVP Q1H PRN; Protocol PRN Reason: Seizure activity Pantoprazole Sodium (Protonix Ec Tab) 40 mg PO DAILY [facility] Last Admin: 08/08/17 09:49 Dose: 40 mg Results - Vital Signs Recent Vital Signs: Last Vital Signs Temp 97.2 F L 08/08/17 18:00 Pulse 85 08/08/17 18:00 Resp 20 08/08/17 18:00 BP 110/70 08/08/17 18:00 Pulse Ox 98 08/08/17 06:00 - Labs Result Diagrams: 08/08/17 00:05 08/08/17 00:05 Labs: Laboratory Results - last 24 hr 08/08/17 02:08 Urine Color Yellow Urine Appearance Sl cloudy Urine pH 6.0 Ur Specific Friendship 1.010 Urine Protein Negative Urine Glucose (UA) Negative Urine Ketones Negative Urine Blood Large H Urine Nitrate Negative Urine Bilirubin Negative Urine Urobilinogen 0.2 Ur Leukocyte Esterase Large H Urine RBC 5 - 10 Urine WBC 10 - 15 Ur Epithelial Cells 1 - 3 Urine Bacteria Occ Attending/Attestation - Attestation I have personally seen and examined this patient.: Yes I have fully participated in the care of the patient.: Yes I have reviewed all pertinent clinical information: Yes Notes (Text): 08/08/17 20:58 I agree with the above mentioned note and exam by the resident with the addition /exception of the followin71 y/o female with a PMHx DM2, Dyslipidemia, Multiple Myeloma (reported to be in remission since stem cell txplant in 2011), CVA x 2 presented to the ED yesterday night after having tonic clonic movmements with foaming at the mouth. Patient was noted to have 2 seizures today both reportedly lasting about 2-3 minutes. Patient appears somnolent but appears to be protecting her airway; noncommunicative at this time. Will monitor for further seizures/status epilepticus and evaluate ventilation status with a blood gas. Patient has already been loaded with keppra and will be kept on Ativan prn seizure activity. 1hr EEG ordered and neurology on board as well.
[2017-08-08 21:47] LABS: ARTERIAL BLOOD GAS HCO3 24.1 mmol/L (21-28); ARTERIAL BLOOD GAS PH 7.41 (7.35-7.45)
--- NOTE | 2017-08-08 21:58 | CARD ---
APPROVED REPORT EKG Measurement Heart [id number] <Conclusion> Normal sinus rhythm Normal ECG
[2017-08-08] MEDS: Insulin Lispro (humaLOG) LOW Coverage SC SCH (22:51)
[2017-08-08] MEDS: Sodium Chloride 0.45% 1,000 ML IV SCH (23:42)
--- NOTE | 2017-08-09 06:50 | CON ---
DATE: 08/08/2017 REASON FOR CONSULTATION: Acute kidney injury. HISTORY OF PRESENTING ILLNESS: A 71-year-old lady previously unknown to me. The patient is seen sitting in chair. Daughter is at bedside. History is provided by daughter. The patient is unable to speak at this time. As per the daughter, the patient was in the hospital 1 week ago with a UTI. The patient was given IV antibiotics, she was discharged home on Bactrim. She completed the course of Bactrim 2 days ago, but she had severe nausea, vomiting, and diarrhea for 2 days prior to stopping of the Bactrim. She was brought to the emergency room last night because of drooping and drooling from the left side of the mouth, shaking of the right upper extremity, weakness. The patient does have a history of NIDDM, hypertension, hyperlipidemia, CVA x2. Last stroke was in March. She has residual left-sided hemiparesis. As per the daughter, the patient was improving since March, but for the past 2 weeks the patient had been deteriorating. Her weakness on the left side is getting worse. She was dragging her left leg. In the emergency room she was found to have blood pressure of 135/74 and heart rate of 80. She was found to have a temperature of 98.5, but early this morning she spiked to a temperature of 99.4. Also she was found have a WBC count of 12.7 and elevated creatinine of 1.7. Her last creatinine prior to discharge was 1.0. Her urine culture from 07/29/2017 showed multiple species. PAST MEDICAL AND SURGICAL HISTORY: NIDDM, hypertension, hyperlipidemia, CVA in March, left hemiparesis, aphasia, as per the PMD's history she has a history of multiple myeloma, and she is status post bone marrow transplant. FAMILY HISTORY: Noncontributory. SOCIAL HISTORY: No smoking, no alcohol use, no IV drug abuse. ALLERGIES: NO KNOWN DRUG ALLERGIES. MEDICATIONS: At home included Lipitor, aspirin, Plavix, Protonix, and Zestril. REVIEW OF SYSTEMS: All systems are reviewed, pertinent positives as mentioned in history of presenting illness, rest unremarkable. PHYSICAL EXAMINATION: General: Elderly lady sitting in chair. VITAL SIGNS: Blood pressure 131/77, heart rate 99, respiratory rate 20, and temperature 98.2, T-max 99.4. HEENT: Normocephalic, atraumatic, positive pallor. NECK: Supple, no JVD. LUNGS: Bilateral equal air entry, rales. CARDIAC: S1 and S2, regular rate and rhythm, no murmur, no rub. ABDOMEN: Distended, soft, nontender, bowel sounds present. EXTREMITIES: No lower extremity edema. NEUROLOGIC: Power 3/5 in the left upper extremity, 3/5 in the left lower extremity, 5/5 on the right side. INTAKE AND OUTPUT: Not charted. LABORATORY DATA: WBC 12.7, hemoglobin 9, hematocrit 28.7, and platelets 394. Sodium 137, potassium 4.9, chloride 101, CO2 23, BUN 38, creatinine 1.7, glucose 132, calcium 10.3, hemoglobin A1c 7.0, magnesium 1.7, AST 34, ALT 25, troponin 0.02, and albumin 4.2. LDL 59. Urinalysis, yellow cloudy, pH 6.0, specific gravity 1.010, protein negative, ketones negative, blood large, leukocyte esterase large. CURRENT MEDICATIONS: Ciprofloxacin 250 q.12 hours, Ecotrin, Plavix, Protonix, and Zestril 20. ASSESSMENT: 1. Acute kidney injury, suspect acute kidney injury is multifactorial, the patient is on DILMA inhibitor, the patient was having nausea, vomiting, and diarrhea at home, she is prerenal, also she was on Bactrim. 2. Leukocytosis, repeat pancultures. 3. Anemia, history of multiple myeloma. 4. Hypercalcemia, secondary to multiple myeloma? 5. Noninsulin dependent diabetes mellitus. 6. Hypertension. 7. Transient ischemic attack? Cerebrovascular accident. PLAN: 1. Gentle hydration, sodium chloride at 60 mL/hour x1 L. 2. Check PTH. 3. Check vitamin D. 4. Check iron, TIBC, ferritin. 5. Check stool occults. 7. Avoid nephrotoxins. 8. Continue fingerstick monitoring and insulin coverage. 9. Continue antihypertensives, okay to continue lisinopril. Thank you for the courtesy of this consultation. We will follow this patient closely with you. Zuleyma Mo MD [facility] # [phone]
[2017-08-09] MEDS: Insulin Lispro (humaLOG) LOW Coverage SC SCH ×4 (08:23→22:30)
[2017-08-09 08:28] LABS: BASO # 0.03 K/mm3 (0.0-2.0); BASO % 0.3 % (0.0-3.0); EOS # 0.2 (0.0-0.7); EOS % 1.8 % (1.5-5.0); GRAN # 5.21 (1.4-6.5); GRAN % 54.8 % (50.0-68.0); HEMATOCRIT 28.9 % (36.0-48.0); LYMPH # 3.2 (1.2-3.4); LYMPH % 34.1 % (22.0-35.0); MEAN CELL VOLUME 74.7 fl (80.0-105.0); MEAN CORPUSCULAR HEMOGLOBIN 23.3 pg (25.0-35.0); MEAN CORPUSCULAR HGB CONC 31.1 g/dl (31.0-37.0); MEAN PLATELET VOLUME 8.7 fl (7.0-11.0); MONO # 0.9 (0.1-0.6); RED CELL DISTRIBUTION WIDTH 17.4 % (11.5-14.5); WHITE BLOOD COUNT 9.5 10^3/ul (4.5-11.0)
[2017-08-09 08:34] LABS: BILIRUBIN,TOTAL 0.3 mg/dL (0.2-1.3); CALCIUM 10.3 mg/dL (8.4-10.5); MAGNESIUM 1.6 mg/dL (1.7-2.2); PHOSPHOROUS 4.4 mg/dL (2.5-4.5); POTASSIUM 4.9 mmol/L (3.6-5.0); TOTAL PROTEIN 8.2 g/dL (5.8-8.3)
[2017-08-09] MEDS: Sodium Chloride 0.45% 1,000 ML IV SCH ×2 (09:06→19:32)
[2017-08-09] MEDS ORDERED: levoFLOXacin 500 mg in D5W 500 MG/100 ML BAG IVPB SCH (10:00)
[2017-08-09] MEDS: levETIRAcetam 500mg IVPB 500 MG/100 ML BAG IV SCH ×2 (10:29→21:29)
[2017-08-09] MEDS ORDERED: Magnesium Sulfate 2 GM in Sodium Chloride 0.9% 100 ML IVPB ONE (10:43)
[2017-08-09] MEDS: Pantoprazole 40 mg EC Tab PO SCH (12:03)
--- NOTE | 2017-08-09 13:16 | CP.CCUPN ---
CCU Subjective - Physician Review Events Since Last Encounter (Free Text): 08/09/17 13:08 No acute events overnight. No further seizures noted. This morning following commands and feeling at baseline. Expressive speech delay. Daughter explains that her mother has been declining from motor and cognitive function in the last 10 days. Also feels that the Batrim has made her worse. CCU Objective - Vital Signs / Intake & Output Vital Signs (Last 4 hours): Vital Signs Pulse BP 08/09/17 12:03 83 129/69 Intake and Output (Last 8hrs): Intake & Output 08/08/17 08/09/17 08/09/17 22:59 06:59 14:59 Intake Total 1050 Output Total 700 Balance 350 Intake: IV 1050 Left Hand 1050 Output: Urine 700 Urine, Voided 700 - Physical Exam Head: Positive for: Atraumatic, Normocephalic Pupils: Positive for: PERRL Extroacular Muscles: Positive for: EOMI Conjunctiva: Positive for: Normal Mouth: Positive for: Moist Mucous Membranes, Other (L lip/ mouth droop) Pharnyx: Positive for: Normal Nose (External): Positive for: Atraumatic Neck: Positive for: Normal Range of Motion Respiratory/Chest: Positive for: Clear to Auscultation, Good Air Exchange. Negative for: Respiratory Distress, Accessory Muscle Use Cardiovascular: Positive for: Regular Rate and Rhythm, Normal S1, S2. Negative for: Murmurs Abdomen: Positive for: Normal Bowel Sounds. Negative for: Tenderness, Distention, Peritoneal Signs Back: Positive for: Normal Inspection Upper Extremity: Positive for: Normal Inspection. Negative for: Cyanosis, Edema Lower Extremity: Positive for: Normal Inspection. Negative for: Edema Neurological: Positive for: GCS=15, CN II-XII Intact, Speech Normal, Other (L leg weakness 3/5 L arm 4/5 speech muffled. expressive aphasia ) Skin: Positive for: Warm, Dry, Normal Color. Negative for: Rashes Psychiatric: Positive for: Alert, Oriented x 3, Normal Insight, Normal Concentration - Medications Active Medications: Active Medications Generic Name Dose Route Start Last Admin Trade Name Freq PRN Reason Stop Dose Admin Aspirin 81 mg 08/08/17 10:00 08/09/17 12:03 Ecotrin PO 81 mg DAILY JUAN RAMON Administration Atorvastatin Calcium 40 mg 08/09/17 17:00 Lipitor PO DIN JUAN RAMON Clopidogrel Bisulfate 75 mg 08/08/17 10:00 08/09/17 12:03 Plavix PO 75 mg DAILY JUAN RAMON Administration Sodium Chloride 1,000 mls @ 100 mls/hr 08/08/17 22:45 08/08/17 23:42 Sodium Chloride 0.45% IV 100 mls/hr .Q10H JUAN RAMON Administration Levetiracetam 500 mg in 100 mls @ 400 mls/hr 08/09/17 10:00 08/09/17 10:29 Keppra 500mg Ivpb IV 400 mls/hr Q12 JUAN RAMON Administration Insulin Human Lispro 0 units 08/08/17 22:00 08/09/17 11:35 Humalog Low SC Not Given ACHS JUAN RAMON Protocol Lisinopril 20 mg 08/08/17 10:00 08/09/17 12:03 Zestril PO 20 mg DAILY JUAN RAMON Administration Lorazepam 2 mg 08/08/17 20:17 Ativan IVP Q1H PRN Seizure activity Protocol Pantoprazole Sodium 40 mg 08/08/17 10:00 08/09/17 12:03 Protonix Ec Tab PO 40 mg DAILY JUAN RAMON Administration - Patient Studies Lab Studies: Microbiology Studies 08/08/17 02:08 Urine Culture - Final Urine,Clean Catch Gram Positive Cocci Lab Studies 08/09/17 08/09/17 08/09/17 Range/Units 11:25 07:30 07:30 WBC 9.5 D (4.5-11.0) 10^3/ul RBC 3.87 (3.5-6.1) 10^6/uL Hgb 9.0 L (12.0-16.0) g/dL Hct 28.9 L (36.0-48.0) % MCV 74.7 L (80.0-105.0) fl MCH 23.3 L (25.0-35.0) pg MCHC 31.1 (31.0-37.0) g/dl RDW 17.4 H (11.5-14.5) % Plt Count 407 (120.0-450.0) 10^3/uL MPV 8.7 (7.0-11.0) fl Gran % 54.8 (50.0-68.0) % Lymph % (Auto) 34.1 (22.0-35.0) % [place] % (Auto) 9.0 H (1.0-6.0) % Eos % (Auto) 1.8 (1.5-5.0) % Baso % (Auto) 0.3 (0.0-3.0) % Gran # 5.21 (1.4-6.5) Lymph # 3.2 (1.2-3.4) [place] # 0.9 H (0.1-0.6) Eos # 0.2 (0.0-0.7) Baso # 0.03 (0.0-2.0) K/mm3 pCO2 (35-45) mm/Hg pO2 (80-100) mm/Hg HCO3 (21-28) mmol/L ABG pH (7.35-7.45) ABG Total CO2 (22-28) mmol.L ABG O2 Saturation (95-98) % ABG Base Excess (-2.0-3.0) mmol/L ABG Potassium (3.6-5.2) mmol/L Sodium 144 (132-148) mmol/L Chloride 106 (98-107) mmol/L Glucose (65-105) mg/dl Lactate (0.7-2.1) mmol/L FiO2 % Potassium 4.9 (3.6-5.0) mmol/L Carbon Dioxide 24 (21-33) mmol/L Anion Gap 19 (10-20) BUN 32 H (7-21) mg/dL Creatinine 1.3 H (0.7-1.2) mg/dL Est GFR ( Amer) 49 Est GFR (Non-Af Amer) 40 POC Glucose (mg/dL) 114 H (65-110) mg/dL Random Glucose 116 H (70-110) mg/dL Calcium 10.3 (8.4-10.5) mg/dL Phosphorus 4.4 (2.5-4.5) mg/dL Magnesium 1.6 L (1.7-2.2) mg/dL Iron (45-180) ug/dL TIBC (265-497) ug/dL % Saturation (20-55) % Ferritin ng/mL Total Bilirubin 0.3 (0.2-1.3) mg/dL AST 17 (14-36) U/L ALT 34 (7-56) U/L Alkaline Phosphatase 100 (38-126) U/L Total Protein 8.2 (5.8-8.3) g/dL Albumin 4.1 (3.0-4.8) g/dL Globulin 4.1 gm/dL Albumin/Globulin Ratio 1.0 L (1.1-1.8) Arterial Blood Potassium (3.6-5.2) mmol/L 08/09/17 08/09/17 08/09/17 Range/Units 07:26 05:20 05:20 WBC (4.5-11.0) 10^3/ul RBC (3.5-6.1) 10^6/uL Hgb (12.0-16.0) g/dL Hct (36.0-48.0) % MCV (80.0-105.0) fl MCH (25.0-35.0) pg MCHC (31.0-37.0) g/dl RDW (11.5-14.5) % Plt Count (120.0-450.0) 10^3/uL MPV (7.0-11.0) fl Gran % (50.0-68.0) % Lymph % (Auto) (22.0-35.0) % [place] % (Auto) (1.0-6.0) % Eos % (Auto) (1.5-5.0) % Baso % (Auto) (0.0-3.0) % Gran # (1.4-6.5) Lymph # (1.2-3.4) [place] # (0.1-0.6) Eos # (0.0-0.7) Baso # (0.0-2.0) K/mm3 pCO2 (35-45) mm/Hg pO2 (80-100) mm/Hg HCO3 (21-28) mmol/L ABG pH (7.35-7.45) ABG Total CO2 (22-28) mmol.L ABG O2 Saturation (95-98) % ABG Base Excess (-2.0-3.0) mmol/L ABG Potassium (3.6-5.2) mmol/L Sodium (132-148) mmol/L Chloride (98-107) mmol/L Glucose (65-105) mg/dl Lactate (0.7-2.1) mmol/L FiO2 % Potassium (3.6-5.0) mmol/L Carbon Dioxide (21-33) mmol/L Anion Gap (10-20) BUN (7-21) mg/dL Creatinine (0.7-1.2) mg/dL Est GFR ( Amer) Est GFR (Non-Af Amer) POC Glucose (mg/dL) 94 (65-110) mg/dL Random Glucose (70-110) mg/dL Calcium (8.4-10.5) mg/dL Phosphorus (2.5-4.5) mg/dL Magnesium (1.7-2.2) mg/dL Iron 32 L (45-180) ug/dL TIBC 394 (265-497) ug/dL % Saturation 8 L (20-55) % Ferritin 12.9 ng/mL Total Bilirubin (0.2-1.3) mg/dL AST (14-36) U/L ALT (7-56) U/L Alkaline Phosphatase (38-126) U/L Total Protein (5.8-8.3) g/dL Albumin (3.0-4.8) g/dL Globulin gm/dL Albumin/Globulin Ratio (1.1-1.8) Arterial Blood Potassium (3.6-5.2) mmol/L 08/08/17 08/08/17 Range/Units 22:37 21:43 WBC (4.5-11.0) 10^3/ul RBC (3.5-6.1) 10^6/uL Hgb (12.0-16.0) g/dL Hct (36.0-48.0) % MCV (80.0-105.0) fl MCH (25.0-35.0) pg MCHC (31.0-37.0) g/dl RDW (11.5-14.5) % Plt Count (120.0-450.0) 10^3/uL MPV (7.0-11.0) fl Gran % (50.0-68.0) % Lymph % (Auto) (22.0-35.0) % [place] % (Auto) (1.0-6.0) % Eos % (Auto) (1.5-5.0) % Baso % (Auto) (0.0-3.0) % Gran # (1.4-6.5) Lymph # (1.2-3.4) [place] # (0.1-0.6) Eos # (0.0-0.7) Baso # (0.0-2.0) K/mm3 pCO2 38 (35-45) mm/Hg pO2 113.0 H (80-100) mm/Hg HCO3 24.1 (21-28) mmol/L ABG pH 7.41 (7.35-7.45) ABG Total CO2 25.3 (22-28) mmol.L ABG O2 Saturation 99.1 H (95-98) % ABG Base Excess -0.3 (-2.0-3.0) mmol/L ABG Potassium 4.1 (3.6-5.2) mmol/L Sodium 138.0 (132-148) mmol/L Chloride 108.0 H (98-107) mmol/L Glucose 157 H (65-105) mg/dl Lactate 0.8 (0.7-2.1) mmol/L FiO2 28.0 % Potassium (3.6-5.0) mmol/L Carbon Dioxide (21-33) mmol/L Anion Gap (10-20) BUN (7-21) mg/dL Creatinine (0.7-1.2) mg/dL Est GFR ( Amer) Est GFR (Non-Af Amer) POC Glucose (mg/dL) 176 H (65-110) mg/dL Random Glucose (70-110) mg/dL Calcium (8.4-10.5) mg/dL Phosphorus (2.5-4.5) mg/dL Magnesium (1.7-2.2) mg/dL Iron (45-180) ug/dL TIBC (265-497) ug/dL % Saturation (20-55) % Ferritin ng/mL Total Bilirubin (0.2-1.3) mg/dL AST (14-36) U/L ALT (7-56) U/L Alkaline Phosphatase (38-126) U/L Total Protein (5.8-8.3) g/dL Albumin (3.0-4.8) g/dL Globulin gm/dL Albumin/Globulin Ratio (1.1-1.8) Arterial Blood Potassium 4.1 (3.6-5.2) mmol/L Laboratory Results - last 24 hr 08/08/17 08/08/17 08/09/17 21:43 22:37 05:20 WBC RBC Hgb Hct MCV MCH MCHC RDW Plt Count MPV Gran % Lymph % (Auto) [place] % (Auto) Eos % (Auto) Baso % (Auto) Gran # Lymph # [place] # Eos # Baso # pCO2 38 pO2 113.0 H HCO3 24.1 ABG pH 7.41 ABG Total CO2 25.3 ABG O2 Saturation 99.1 H ABG Base Excess -0.3 ABG Potassium 4.1 Sodium 138.0 Chloride 108.0 H Glucose 157 H Lactate 0.8 FiO2 28.0 Potassium Carbon Dioxide Anion Gap BUN Creatinine Est GFR ( Amer) Est GFR (Non-Af Amer) POC Glucose (mg/dL) 176 H Random Glucose Calcium Phosphorus Magnesium Iron TIBC % Saturation Ferritin 12.9 Total Bilirubin AST ALT Alkaline Phosphatase Total Protein Albumin Globulin Albumin/Globulin Ratio Arterial Blood Potassium 4.1 08/09/17 08/09/17 08/09/17 05:20 07:26 07:30 WBC 9.5 D RBC 3.87 Hgb 9.0 L Hct 28.9 L MCV 74.7 L MCH 23.3 L MCHC 31.1 RDW 17.4 H Plt Count 407 MPV 8.7 Gran % 54.8 Lymph % (Auto) 34.1 [place] % (Auto) 9.0 H Eos % (Auto) 1.8 Baso % (Auto) 0.3 Gran # 5.21 Lymph # 3.2 [place] # 0.9 H Eos # 0.2 Baso # 0.03 pCO2 pO2 HCO3 ABG pH ABG Total CO2 ABG O2 Saturation ABG Base Excess ABG Potassium Sodium Chloride Glucose Lactate FiO2 Potassium Carbon Dioxide Anion Gap BUN Creatinine Est GFR ( Amer) Est GFR (Non-Af Amer) POC Glucose (mg/dL) 94 Random Glucose Calcium Phosphorus Magnesium Iron 32 L TIBC 394 % Saturation 8 L Ferritin Total Bilirubin AST ALT Alkaline Phosphatase Total Protein Albumin Globulin Albumin/Globulin Ratio Arterial Blood Potassium 08/09/17 08/09/17 07:30 11:25 WBC RBC Hgb Hct MCV MCH MCHC RDW Plt Count MPV Gran % Lymph % (Auto) [place]uther[place] % (Auto) Eos % (Auto) Baso % (Auto) Gran # Lymph # [place] # Eos # Baso # pCO2 pO2 HCO3 ABG pH ABG Total CO2 ABG O2 Saturation ABG Base Excess ABG Potassium Sodium 144 Chloride 106 Glucose Lactate FiO2 Potassium 4.9 Carbon Dioxide 24 Anion Gap 19 BUN 32 H Creatinine 1.3 H Est GFR ( Amer) 49 Est GFR (Non-Af Amer) 40 POC Glucose (mg/dL) 114 H Random Glucose 116 H Calcium 10.3 Phosphorus 4.4 Magnesium 1.6 L Iron TIBC % Saturation Ferritin Total Bilirubin 0.3 AST 17 ALT 34 Alkaline Phosphatase 100 Total Protein 8.2 Albumin 4.1 Globulin 4.1 Albumin/Globulin Ratio 1.0 L Arterial Blood Potassium EKG/Cardiology Studies: Cardiology / EKG Studies 08/08/17 18:32 ELECTROCARDIOGRAM Stat Comment: Reason For Exam: 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 New onset seizures on the medial floor x 2. Loaded with Keppra and continued. CT head done, no acute findings. OLD MRI reviewed shows old cva as the seizure focus. Will order new MRI to compare. Currently no seizures. Will monitor today before transfer. BP controlled. HX MM , w/ new soft tissue abd mass, will need MRI. dvt P ppi cc time 35 min
[2017-08-09 13:30] LABS: VITAMIN D 25 OH TOTAL 47.4 NG/ML (30.0-100.0)
--- NOTE | 2017-08-09 13:33 | CON ---
NEUROLOGY CONSULTATION DATE: REASON FOR CONSULTATION: Seizure. HISTORY OF PRESENT ILLNESS: The patient is a 71-year-old female, who has been asked for evaluation for seizure. The patient was admitted in the hospital because of increasing weakness. The patient apparently had a recent stroke that left her with severe dysarthria. Yesterday, the patient was noted to have generalized seizure while in the hospital. The patient apparently had later on another generalized seizure. The patient was transferred to ICU. The patient unable to give history because of severe dysarthria. History was obtained from the chart. REVIEW OF SYSTEMS: Denies any headache, dizziness, chest pain, shortness of breath, does complain of generalized weakness. Denies any constipation, diarrhea, cough, sputum production. PAST MEDICAL HISTORY: Includes recent cerebrovascular accident, multiple myeloma. MEDICATIONS: At home included Lipitor, aspirin, Plavix, pantoprazole, and Zestril. ALLERGIES: NO KNOWN DRUG ALLERGIES. SOCIAL HISTORY: The patient is a nonsmoker, nonalcoholic, and does not use any illicit drugs. FAMILY HISTORY: Unknown. PHYSICAL EXAMINATION: GENERAL: The patient is an elderly female, lying on the bed, in no acute distress. VITAL SIGNS: Her blood pressure is 101/64, heart rate is 108 per minute, breathing at the rate of 16 per minute, and is febrile. HEENT: Head is normocephalic and atraumatic. NECK: Supple. There is no carotid bruits. LUNGS: Clear. CARDIOVASCULAR: S1 and S2 audible. No murmurs. ABDOMEN: Soft and nontender. Bowel sounds present. NEUROLOGIC: Mental Status: The patient is awake and alert. She follows all simple commands. She has severe dysarthria. She is able to verbalize, knows her name, knows that she is in the hospital. Cranial Nerve Examination: Pupils are 3 mm bilaterally reactive to light. Visual muniz are full. Extraocular movements are intact. There is no obvious facial asymmetry. Motor Examination: Tone is normal. She is moving all 4 extremities. Power appears to be 4/5 all over. The reflexes are 1+ and symmetrical. Plantars downgoing bilaterally. Cerebellar Examination: [id number] shows no dysmetria. Gait is deferred at the moment. LABORATORY DATA: Labs reviewed shows WBC of 9.5, hemoglobin of 9.0, hematocrit of 28.9, and platelets of 407. INR is 1.06. Sodium is 144, potassium 4.9, chloride of 106, carbon dioxide content of 24, BUN of 32, and creatinine of 1.3 and her glucose is 116. She had CT scan of the head done on 08/07/2017, which shows old right MCA distribution infarct. IMPRESSION: 1. New onset of seizure. This is likely secondary to presence of her cerebrovascular accident. 2. Cerebrovascular accident with severe dysarthria. 3. History of multiple myeloma. RECOMMENDATIONS: 1. The patient was given 1000 mg of IV Keppra last night after the patient had seizure. 2. The patient to be started on maintenance Keppra of 500 mg every 12 hours. The patient to be started on IV medication and to be switched to p.o. once she starts swallowing. 3. The patient was on ciprofloxacin and she was started on Levaquin; however, Levaquin also can lower seizure thresholds. We will consider putting her on different antibiotic. 4. The patient to have an electroencephalogram. 5. The patient to have maintain seizure precautions. 6. The patient may have p.r.n. Ativan if she has seizures. 7. Please continue the treatment and supportive care. Thank you for the opportunity to participate in the care of this patient. Walker Tyler MD
--- NOTE | 2017-08-09 19:15 | PN ---
DATE: LOCATION: Seen in the intensive care unit, bed 3. SUBJECTIVE: Patient is sleeping at this point. She is attended to by her daughter. Patient is status post rapid response for seizures. Most likely had seizures at home, had further two seizures in the hospital, was transferred to the intensive care unit, was loaded with Keppra and kept on Keppra by mouth. Patient did have a CT in the ER on admission, which did not change. She is scheduled for an MRI of the brain. She has had history of two strokes in the past and has not had seizures in the past. Patient also has history of multiple myeloma treated with a bone marrow transplant. She does have an abnormal right iliac mass, which is the site for myeloma in the previous workup. Patient will have an MRI of the mass and also an MRI of the brain. PHYSICAL EXAMINATION: VITAL SIGNS: Stable. CHEST: Clear to auscultation and percussion. HEART: Regular sinus rhythm. ABDOMEN: Benign. EXTREMITIES: Patient does have a weakness in the left upper and left lower extremities approximately 4/5 to 5/5. PLAN: At this point, the plan is to continue close observation of seizure, seizure precautions, neurological consultation, further neurological workup with an EEG, and an MRI of the brain. Patient has been aphasic since being readmitted to the hospital. She was switched from Bactrim to Cipro to Levaquin. Reji Mays MD
--- NOTE | 2017-08-09 19:42 | MRI ---
EXAM: MR Head Without Intravenous Contrast EXAM DATE/TIME: 08/09/2017 6:15 PM CLINICAL HISTORY: The patient age is 71 years old and is female; Signs and symptoms; Other: Aphasia; Patient HX: ? Aphasia Facility exam id and description: Mri br s brain without contrast TECHNIQUE: Magnetic resonance images of the head/brain without intravenous contrast in multiple planes. COMPARISON: MR - BRAIN W WO CONTRAST 2017-07-31 17:20 FINDINGS: Brain: Restricted effusion is identified within the right frontal and parietal cortical and subcortical tissues, as well as the right insular cortex. These findings are consistent with acute infarcts. FLAIR hyperintense gliosis is identified within the right parietal lobe, consistent with an old infarct. Mild additional gliosis is seen within the posterior right frontal lobe superiorly, also consistent with chronic ischemic change. There are scattered additional foci /areas of high FLAIR signal intensity within the cerebral white matter. There is no mass effect or restricted diffusion associated with these foci. In a patient this age, this likely represents chronic small vessel ischemic disease. There is prominence of the ventricles and sulci, compatible with atrophy. Mild patchy magnetic susceptibility is identified within the right frontal and parietal lobes, consistent with hemorrhage. Ventricles: See above. Bones/joints: No acute abnormality. Sinuses: There is minimal mucosal thickening of the left maxillary sinus. No acute sinusitis. Mastoid air cells: No mastoid effusion. Orbits: No acute abnormality, as visualized. Vertebral arteries: There is a stable loss of the flow void within the distal left vertebral artery, concerning for occlusion. IMPRESSION: 1. Restricted effusion is identified within the right frontal and parietal cortical and subcortical tissues, as well as the right insular cortex. These findings are consistent with acute infarcts. 2. FLAIR hyperintense gliosis is identified within the right parietal lobe, consistent with an old infarct. Mild additional gliosis is seen within the posterior right frontal lobe superiorly, also consistent with chronic ischemic change. 3. There are scattered additional foci /areas of high FLAIR signal intensity within the cerebral white matter. In a patient this age, this likely represents chronic small vessel ischemic disease. 4. There is a stable loss of the flow void within the distal left vertebral artery, concerning for occlusion. Correlation with MRA or CTA is recommended. 5. Atrophy. 6. Mild patchy magnetic susceptibility is identified within the right frontal and parietal lobes, consistent with hemorrhage. Correlation with CT is recommended.
[2017-08-09] MEDS: cefTRIAXone 1 gm 1 GM/100 ML BAG IVPB SCH (19:45)
--- NOTE | 2017-08-09 21:06 | CARD ---
APPROVED REPORT EKG Measurement Heart [id number] <Conclusion> Sinus tachycardia Otherwise normal ECG
[2017-08-10] LABS: HEMATOCRIT 28.6 % (35.0-45.0); HEMOGLOBIN 9.1 g/dL (11.7-15.5); RDW 18.4 % (11.0-15.0)
[2017-08-10] MEDS: Sodium Chloride 0.45% 1,000 ML IV SCH (05:30)
[2017-08-10 06:32] LABS: BASO # 0.02 K/mm3 (0.0-2.0); BASO % 0.2 % (0.0-3.0); EOS # 0.3 (0.0-0.7); EOS % 3.1 % (1.5-5.0); GRAN # 4.77 (1.4-6.5); HEMATOCRIT 27.9 % (36.0-48.0); LYMPH # 2.8 (1.2-3.4); LYMPH % 32.7 % (22.0-35.0); MEAN CELL VOLUME 75.6 fl (80.0-105.0); MEAN CORPUSCULAR HEMOGLOBIN 22.8 pg (25.0-35.0); MEAN CORPUSCULAR HGB CONC 30.1 g/dl (31.0-37.0); MEAN PLATELET VOLUME 8.5 fl (7.0-11.0); MONO # 0.7 (0.1-0.6); RED CELL DISTRIBUTION WIDTH 17.4 % (11.5-14.5); WHITE BLOOD COUNT 8.5 10^3/ul (4.5-11.0)
[2017-08-10 06:43] LABS: ALB/GLOB RATIO 0.9 (1.1-1.8); BILIRUBIN,TOTAL 0.3 mg/dL (0.2-1.3); CALCIUM 9.5 mg/dL (8.4-10.5); MAGNESIUM 1.7 mg/dL (1.7-2.2); PHOSPHOROUS 3.3 mg/dL (2.5-4.5); POTASSIUM 4.3 mmol/L (3.6-5.0); TOTAL PROTEIN 7.9 g/dL (5.8-8.3)
[2017-08-10] MEDS: Insulin Lispro (humaLOG) LOW Coverage SC SCH ×4 (08:08→21:44)
[2017-08-10] MEDS: Pantoprazole 40 mg EC Tab PO SCH (09:52)
[2017-08-10] MEDS: cefTRIAXone 1 gm 1 GM/100 ML BAG IVPB SCH ×2 (09:53→15:00)
[2017-08-10] MEDS: levETIRAcetam 500mg IVPB 500 MG/100 ML BAG IV SCH (09:53)
[2017-08-10] MEDS ORDERED: Gadodiamide 287 MG/ML VIAL (15ML) IV ONE (11:22)
--- NOTE | 2017-08-10 12:24 | US ---
PROCEDURE: Bilateral carotid artery duplex ultrasound HISTORY: Carotid stenosis CVA PHYSICIAN(S): Dominick uHgo MD. TECHNIQUE: Duplex sonography and color-flow Doppler were used to evaluate the carotid bifurcations and limited segments of the vertebral arteries bilaterally. FINDINGS: There is mild smooth heterogeneous plaque noted at the carotid bifurcations bilaterally. The peak systolic velocity in the proximal right internal carotid artery is 43 cm/sec. This corresponds to a 20 to 39% proximal right ICA stenosis. Normal systolic velocities are noted in the proximal right external carotid artery. There is antegrade flow in the dominant right vertebral artery. The peak systolic velocity in the proximal left internal carotid artery is 60 cm/sec. This corresponds to a 20 to 39% proximal left ICA stenosis. Normal systolic velocities are noted in the proximal left external carotid artery. There is bidirectional flow in the small left vertebral artery. IMPRESSION: 1. Bilateral 20-39% proximal ICA stenoses. 2. Antegrade flow in the large right vertebral artery. Bidirectional flow in the small left vertebral artery
--- NOTE | 2017-08-10 12:34 | MRI ---
PROCEDURE: Magnetic Resonance Angiography Brain HISTORY: new cva COMPARISON: MRI of the brain 08/09/2017 TECHNIQUE: 3D time of flight MR angiography of the intracranial arteries was performed. Rotating maximum intensity projection images were generated. FINDINGS: INTERNAL CAROTID ARTERIES: There is markedly diminished flow in the right internal carotid especially in the cavernous and supraclinoid segments. ANTERIOR CEREBRAL ARTERIES: Unremarkable. A1 and A2 segments are widely patent. Smaller distal branches unremarkable, as visualized. MIDDLE CEREBRAL ARTERIES: There is no antegrade flow visualized in the right middle cerebral artery POSTERIOR CIRCULATION: Basilar Artery: Unremarkable. Distal Vertebral Arteries: Dominant right vertebral artery Posterior Cerebral Arteries: Unremarkable. Posterior Inferior Cerebellar Arteries: Unremarkable. ANEURYSM/ VASCULAR MALFORMATIONS: None. OTHER FINDINGS: None IMPRESSION: Markedly diminished flow in the right internal carotid and middle cerebral arteries
--- NOTE | 2017-08-10 13:08 | PN ---
NEUROLOGY PROGRESS NOTE SUBJECTIVE: The patient is lying on the bed, in no acute distress. PHYSICAL EXAMINATION: VITAL SIGNS: Her blood pressure is 126/77, heart rate is 83 per minute, breathing at the rate of 16 per minute and temperature is 97.9 degree Fahrenheit. HEENT: Head is normocephalic and atraumatic. NECK: Supple. There are no carotid bruits. LUNGS: Clear. CARDIOVASCULAR: S1 and S2 audible. No murmurs. ABDOMEN: Soft and nontender. Bowel sounds are present. NEUROLOGIC: Mental status: The patient is awake, alert. She follows all simple commands. She is trying to say a few words. Cranial nerve examination: Pupils are 3 mm bilaterally, reactive to light. Visual muniz are full. Extraocular movements are intact. There is slightly decreased nasolabial fold on the left side. Motor examination: Tone is normal. There appears to be left hemiparesis. Power is about 4/5 on the left side and 5/5/ on the right side. [id number] shows no dysmetria. LABORATORY DATA: Labs reviewed. 1. MRI of the brain shows restricted diffusion is identified within the right frontal and parietal, cortical and subcortical tissue as well as right insular cortex; these findings are consistent with acute infarcts. 2. FLAIR hyperintense gliosis is identified within the right parietal lobe, consistent with an old infarct, scattered additional foci areas with high FLAIR signal abnormality, consistent with chronic small-vessel ischemic changes and atrophy. She had an electroencephalogram done, which is normal. IMPRESSION: 1. New-onset seizure. 2. New cerebrovascular accident. 3. History of old cerebrovascular accident. RECOMMENDATIONS: 1. The patient to have a carotid Doppler study. 2. The patient also to have an echocardiogram. 3. The patient had an electroencephalogram, which shows no epileptogenic activity. 4. The patient is to be continued on aspirin and Plavix. 5. The patient also to be started on statin. 6. I am glad the patient had no further seizure. The patient to be continued on Keppra 500 mg twice a day once she is able to swallow better. The patient's Keppra may be switched to oral. 7. Please continue supportive care and other treatment, and the patient may be transferred out of ICU if remains stable. Thank you for the opportunity to participate in the care of this patient. Walker Tyler MD
--- NOTE | 2017-08-10 13:33 | MRI ---
PROCEDURE: MRI pelvis with and without contrast HISTORY: rt iliac mass COMPARISON: CT 08/07/2017. TECHNIQUE: Multiplanar, multi sequence MR images of the pelvis were obtained following administration of intravenous gadolinium contrast. 15 cc of Omniscan FINDINGS: As seen on the CT scan there is a bony destructive lesion involving the right iliac bone and acetabulum. There is cortical disruption medially with a soft tissue mass projecting into the pelvis. This is best seen on image 14 series 4 where it measures 2.4 x 4 cm. This is calcified on CT. There is a mild degree of enhancement of the lesion. The MR findings are nonspecific. This most likely represents a bony malignancy The remainder the pelvis is unremarkable. There is no adenopathy. 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
[2017-08-10 13:47] LABS: HEMOGLOBIN F <1.0 Percent (<2.0)
--- NOTE | 2017-08-10 14:33 | PN ---
DATE: SUBJECTIVE: A 71-year-old black female admitted to hospital with change in mental status, confusion, headache, seizure, who had two seizures in the hospital, was transferred to the ICU. The patient had a repeat CT, which was negative but a repeat MRI showed new evidence of infarcts in the right frontal and right parietal area, old infarcts are also noted. The patient has not had any repeat seizures since she was loaded and kept on Keppra. The patient is more awake and alert, but she is still aphasic today, complaining of some pain in the left lower quadrant and abdomen. Lipase is ordered. The patient is somewhat nauseous, possibly from the Keppra. Repeat CVAs; we will ask , his opinion from interventional neurology about any help in reducing the recurrence of her CVAs; possible MRA of the brain to look at the vasculature. The patient is seen with the daughter in bed today. PHYSICAL EXAMINATION: GENERAL: Shows a well-developed, slight obese black female. Awake, easily arousable in bed in the ICU with her daughter, halting amounts of verbal ability today. VITAL SIGNS: Stable. ABDOMEN: Somewhat tenderness in the left lower quadrant and also in the mid epigastric area. No mass is palpable. EXTREMITIES: Decreased strength in the left upper and left lower extremity. Normal internal and external rotation of the left hip. No tenderness on palpation of the hip. No shortening of the leg. LABORATORY DATA: Her BUN and creatinine have corrected to 19 and 1.1. Her sugar is 128. Her H and H is 8.4 and 27.9. Her white count is 8.5. She does have a history of myeloma treated with bone marrow transplant at [facility]. We are pending a serum protein electrophoresis and a neurological consultation. ASSESSMENT AND PLAN: No further seizure at this point. Plan is to have neurological consultation. Possible workup of intracerebral vasculature and close monitoring of her H and H and renal function. Reji Mays MD
--- NOTE | 2017-08-10 16:01 | PN ---
DATE: 08/09/2017 SUBJECTIVE: The patient is seen in the ICU. She is lying in bed. Her eyes are open, she is awake. She is unable to verbalize. She is aphasic. She is moving her right upper extremity and her right lower extremity. Events of last night are noted. The patient had 2 episodes of witnessed seizures on the floor. Therefore, she has been transferred to the ICU. Currently, she does not appear to be in any kind of distress. She is on Keppra 500 mg IV piggyback q. 12 hours. She is also receiving Rocephin 1 g daily. Half normal saline at 100. PHYSICAL EXAMINATION: GENERAL: Elderly lady, lying in bed in the ICU. VITAL SIGNS: Blood pressure 137/87, heart rate 78, respiratory rate 14, and temperature 98.6. HEENT: Normocephalic, atraumatic. Pupils sluggish, reactive to light. Right eye appears proptotic. NECK: Supple, no JVD. LUNGS: Bilateral equal air entry, no rales, no rhonchi. CARDIAC: S1 and S2, regular rate and rhythm, no murmur, no rub. ABDOMEN: Soft, nondistended, nontender, bowel sounds present. EXTREMITIES: No lower extremity edema. Weakness of the left side. Power 3/5. INTAKE AND OUTPUT: 1050/700. LABORATORY DATA: WBC 9.5, hemoglobin 9, hematocrit 28.9, and platelets 407. Sodium 144, potassium 5.9, chloride 106, CO2 24, BUN 32, creatinine 1.3, glucose 116, calcium 10.3, phosphorus 4.4, magnesium 1.6, iron saturation 8, iron 32, AST 17, ALT 34, albumin 4.1, vitamin D 47. Urine culture Gram-positive cocci. CURRENT MEDICATIONS: Ativan, Ecotrin, Keppra, Lipitor, Plavix, Protonix, ceftriaxone, half normal saline at 100, Zestril 20. ASSESSMENT: 1. Acute kidney injury, resolving. Etiology of acute kidney injury is multifactorial. The patient was dehydrated. She was having diarrhea with concomitant DILMA inhibitor use and Bactrim. 2. Hyponatremia. 3. Hypercalcemia, mild. 4. Hypomagnesemia. 5. Anemia with low iron stores. 6. History of multiple myeloma, status post bone marrow transplant. 7. 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 8. Seizures. PLAN: 1. Continue hypotonic IV fluids. 2. Followup PTH. 3. Check stool occult. 4. Venofer 100 mg IV piggyback. 5. We will monitor urine output. 6. Avoid nephrotoxins. 7. Close ICU followup. 8. Case discussed with ICU attending, case discussed with ICU nurses. Case discussed with daughter by phone. More than 35 minutes spent in the care of this critically ill patient. Zuleyma Mo MD
--- NOTE | 2017-08-10 17:15 | CARD ---
APPROVED REPORT EXAM: Two-dimensional and M-mode echocardiogram with Doppler and color Doppler. INDICATION CVA/TIA 2D DIMENSIONS Left Atrium (2D)4.0 (1.6-4.0cm)IVSd1.0 (0.7-1.1cm) LVDd4.2 (3.9-5.9cm)PWd1.0 (0.7-1.1cm) LVDs2.8 (2.5-4.0cm)FS (%) 33.4 % LVEF (%)62.5 (>50%) M-Mode DIMENSIONS Aortic Root2.80 (2.2-3.7cm)Aortic Cusp Exc.1.70 (1.5-2.0cm) Aortic Valve AoV Peak Bhfzrkdc394.0cm/Sylvia Peak GR.17mmHg Mitral Valve MV E Iahuarql75.5cm/sMV A Rnshimqb96.8cm/sE/A ratio0.8 TDI Lateral E' Peak V6.73cm/sMedial E' Peak V6.14cm/sE/Lateral E'11.1 E/Medial E'12.1 Pulmonary Valve PV Peak Gqnpywgs76.0cm/sPV Peak Grad.2mmHg Tricuspid Valve TR Peak Kzidgrqs772vh/sRAP CCGARXJN69oxNbOP Peak Gr.33mmHg [id number] LEFT VENTRICLE The left ventricle is normal size. There is normal left ventricular wall thickness. The left ventricular function is normal. The left ventricular ejection fraction is within the normal range. There is normal LV segmental wall motion. Transmitral Doppler flow pattern is Grade I-abnormal relaxation pattern. RIGHT VENTRICLE The right ventricle is normal size. There is normal right ventricular wall thickness. The right ventricular systolic function is normal. ATRIA The left atrium is borderline dilated. The right atrium size is normal. AORTIC VALVE The aortic valve is mildly thickened. There is trace to mild aortic regurgitation. There is no aortic valvular stenosis. MITRAL VALVE The mitral valve is mildly thickened. Mitral regurgitation is trace to mild. A borderline mitral valve prolapse is present. TRICUSPID VALVE There is mild tricuspid regurgitation. There is mild pulmonary hypertension. GREAT VESSELS The aortic root is normal in size. PERICARDIAL EFFUSION There is no pericardial effusion. <Conclusion> The left ventricle is normal size. There is normal left ventricular wall thickness. The left ventricular function is normal. The left ventricular ejection fraction is within the normal range. There is normal LV segmental wall motion. Transmitral Doppler flow pattern is Grade I-abnormal relaxation pattern. There is trace to mild aortic regurgitation. Mitral regurgitation is trace to mild. There is mild tricuspid regurgitation. There is mild pulmonary hypertension.
--- NOTE | 2017-08-10 17:24 | PN ---
DATE: 08/10/2017 SUBJECTIVE: The patient is seen in the ICU. She is lying in bed. She is able to say one or two words. She is aphasic almost. She does not appear to be in any kind of pain. She does not have any shortness of breath. Her MRI showed restricted effusion in the right frontal and parietal cortical and subcortical tissues, also magnetic susceptibility seen in the right frontal and parietal lobes consistent with hemorrhage. Hence the patient is found to have a new stroke, multiple strokes. Also her pelvis MRI shows a bony tumor of the right iliac bone and acetabulum. PHYSICAL EXAMINATION: GENERAL: An elderly lady lying in bed in the ICU. VITAL SIGNS: Blood pressure 126/77, heart rate 83, respiratory rate 20, and temperature 97.9. HEENT: Normocephalic, atraumatic. NECK: Supple. No JVD. LUNGS: Bilateral equal air entry, bilateral equal expansion. No rales. No rhonchi. CARDIAC: S1 and S2, regular rate and rhythm, no murmurs, no rubs. ABDOMEN: Soft, nondistended, nontender, bowel sounds present. EXTREMITIES: No lower extremity edema. INTAKE AND OUTPUT: 3254/1800. LABORATORY DATA: WBC 8.5, hemoglobin 8.4, hematocrit 27.9, platelets 378, MCV 75. Sodium 142, potassium 4.3, chloride 105, CO2 is 31, BUN 19, creatinine 1.1, glucose 128, calcium 9.5, phosphorus 3.3, magnesium 1.3, albumin 3.8. Urinalysis from 08/08/2017, urine protein negative, glucose negative, ketones negative, blood large, leukocyte esterase large. Urine culture gram positive cocci. Repeat culture on 08/09/2017, no growth. Carotid artery ultrasound. Bilateral 20 to 39% proximal ICA stenosis, antegrade flow in the large right vertebral artery, bidirectional flow in the small left vertebral artery. CURRENT MEDICATIONS: Ativan, Augmentin 875 q. 12 hours, Ecotrin, insulin, Keppra, Lipitor, Plavix, Protonix, Zestril 20 daily, iron sucrose 200 mg given today, Rocephin 1 g given yesterday, half normal saline discontinued this morning. ASSESSMENT AND PLAN: 1. Acute kidney injury, multifactorial, prerenal azotemia, concomitant DILMA inhibitor use, Bactrim, resolved. 2. New right-sided stroke. 3. Old stroke also in the right side middle cerebral artery region with left hemiparesis. 4. History of multiple myeloma. 5. Hypercalcemia, resolved likely secondary to dehydration. 6. Hypertension. 7. Bony tumor in the right iliac bone ?. 8. Severe anemia with low iron stores ? gastrointestinal blood loss. PLAN: 1. Venofer 200 mg IV piggyback daily x5 doses. 2. Stool occult x3. 3. Urine immunofixation. 4. Consider biopsy of the right iliac bone ?. 5. Continue antibiotics for UTI ?. 6. Continue anticoagulation. 7. Speech therapy. 8. Continue antiseizure medications. Case discussed with ICU attending at length, case discussed with the patient at bedside, case discussed with resident. More than 35 minutes spent in the care of this critically ill patient. Zuleyma Mo MD
[2017-08-10] MEDS: Amoxicillin-Clav 875-125 mg Tab PO SCH (21:15)
[2017-08-11 01:22] LABS: TOTAL PROTEIN, SERUM 7.7 g/dL (6.1-8.1)
--- NOTE | 2017-08-11 02:15 | EEG ---
ELECTROENCEPHALOGRAM REPORT DATE: INTRODUCTION: This is a digitally recorded EEG monitoring using standard EEG montages. BACKGROUND RHYTHM: The EEG shows a background activity of 8-9 Hz alpha activity in parietooccipital region. The EEG activity is bilaterally symmetrical and synchronous. There is attenuation of the background activity on eye opening, and no sleep recording was noted. ABNORMAL POTENTIALS: No spike, sharp waves, or focal slowing was seen. PHOTIC STIMULATION AND HYPERVENTILATION: Photic stimulation did not reveal any abnormality. Hyperventilation was not performed. IMPRESSION: Normal electroencephalogram. No epileptiform activity is seen in this electroencephalogram recording. Walker Tyler MD
[2017-08-11] MEDS: Insulin Lispro (humaLOG) LOW Coverage SC SCH ×4 (08:03→21:45)
[2017-08-11] MEDS: Pantoprazole 40 mg EC Tab PO SCH (10:53)
[2017-08-11] MEDS: Amoxicillin-Clav 875-125 mg Tab PO SCH ×2 (10:53→21:21)
--- NOTE | 2017-08-11 13:02 | PN ---
DATE: SUBJECTIVE: The patient is currently seen on telemetry. She was transferred out of the ICU. She remains aphasic, unable to verbalize. She had witnessed seizures during the early part of her hospitalization. She remains on antiseizure medication. She had been switched over to oral antibiotic therapy from IV antibiotics. She had a gram-positive cocci in her urine, but negative final culture reports. MEDICATIONS: Medication list reviewed. The patient is currently on Ativan, Augmentin, Ecotrin, insulin, IV iron, Keppra, Lipitor, Plavix, Protonix, and lisinopril. OBJECTIVE: INTAKE/OUTPUT: Intake is 3254 and output is 1800. VITAL SIGNS: Blood pressure is 128/77, temperature 98.3, respiratory rate of 20 with a pulse of 72. HEENT: Exam shows to be normocephalic, atraumatic. Pupils equal, reactive to light and accommodation. Extraocular muscles are intact. NECK: Supple. No neck vein distention. CHEST: Clear to auscultation and percussion. No rales or rhonchi. No wheezing. CARDIOVASCULAR: Shows a regular rate rhythm without murmurs, rubs or gallops. ABDOMEN: Soft, nondistended, nontender. Bowel sounds are normal. EXTREMITIES: Show no lower extremity edema. She has significant weakness of her left upper and left lower extremity. NEUROLOGIC: Shows her to be aphasic with a left hemiparesis. IMAGING DATA: Carotid artery Doppler done yesterday shows bilateral mild proximal internal carotid artery stenosis. 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 MRI study of the head showed mild diminished flow on the right internal carotid and middle cerebral arteries. Her brain MRI showed old infarct right parietal lobe. Chronic ischemic changes seen. Possible loss of flow in the distal left vertebral artery. Cerebral atrophy. Possible right frontal and parietal lobe hemorrhage not confirmed on CT scan. CT scan showed a old right MCA distribution infarct. LABORATORY DATA: CBC; white blood cell count 8.5, hemoglobin remains low at 8.4, platelet count is 378,000. Chemistry show normal electrolytes. BUN down to 19 with a creatinine of 1.1. Her maximum BUN was 38, maximum creatinine was 1.7. She is back to baseline levels. Her calcium, phosphorus, magnesium level from yesterday were all normal. ASSESSMENT: Acute renal insufficiency has resolved. The patient is back to baseline levels. This is thought to be secondary to dehydration and perhaps diarrhea. The patient had also been on an DILMA inhibitor and Bactrim at the time of presentation. Status post hyponatremia, mild hypercalcemia and hypomagnesemia. Everything is back to normal. History of anemia with low iron levels. The patient has been receiving Venofer. History of multiple myeloma status post bone marrow transplant. History of a past CVA with left-sided hemiparesis and aphasia. History of seizures. PLAN 1. The patient had been transferred out of the ICU and is currently stable on telemetry. From a renal standpoint, her labs are all normal. Her chemistries are back to normal. Her BUN and creatinine have returned to normal. The patient was encouraged to continue adequate p.o. oral hydration. 2. The patient will continue Venofer therapy to try and replace her iron deficiency. 3. Continue close followup by neurology. 4. The patient is stable from a renal standpoint. Bienvenido Mcgee MD
--- NOTE | 2017-08-11 21:40 | PN ---
NEUROLOGY PROGRESS NOTE DATE: SUBJECTIVE: The patient is lying in the bed in no acute distress. Denies any headache or dizziness. PHYSICAL EXAMINATION: VITAL SIGNS: Blood pressure is 119/74, heart rate 68 per minute, breathing at a rate of 16, and current temperature is 97.6 Fahrenheit. HEENT: Head is normocephalic and atraumatic. NECK: Supple. There are no carotid bruits. LUNGS: Clear. CARDIOVASCULAR: S1 and S2 audible. No murmurs. ABDOMEN: Soft and nontender. Bowel sounds are present. NEUROLOGIC: Mental status: The patient is awake, alert. She says a few words. She follows simple commands. Cranial nerve examination: Pupils are 3 mm bilaterally, reactive to light. Visual muniz are full. Extraocular movements are intact. She has mild decreased nasolabial fold on the left side. She does have left hemiparesis. Power is about 4/5. [id number] shows no dysmetria. LABORATORY DATA: Labs reviewed. Carotid ultrasound shows no significant stenosis. She also had an echocardiogram, which did not show any acute thrombus. IMPRESSION: 1. New cerebrovascular accident. 2. New onset of seizure. RECOMMENDATIONS: 1. The patient is to be continued on aspirin and Plavix. 2. The patient has no further seizures. She is to be continued on Keppra 500 mg twice a day. 3. Because of recurrent strokes, the patient may have underlying atrial fibrillation. Consider implantable loop recorder for prolonged cardiac monitoring to look for evidence of atrial fibrillation. 4. The patient is to have physical therapy as well as speech therapy. 5. The patient is a good rehab candidate. Thank you for the opportunity to participate in the care of this patient. Walker Tyler MD MTDTammi
--- NOTE | 2017-08-11 22:33 | PN ---
DATE: 08/11/2017 SUBJECTIVE: The patient has no complaints of any chest pain, shortness of breath, or headaches or dizziness. Patient is not able to speak much. PHYSICAL EXAMINATION: VITAL SIGNS: Temperature is 98.4, pulse of 76, blood pressure is 127/88, respiration is 15. GENERAL: The patient is lying in bed, flat, comfortable. HEENT: No oral lesion. Anicteric sclerae. Moist mucosa. NECK: No JVD, adenopathy, or thyromegaly. CARDIOVASCULAR: S1 and S2, regular. No murmurs, rubs, or gallops. LUNGS: Clear to auscultation bilaterally. No wheeze, rales, or rhonchi. ABDOMEN: Bowel sounds are positive, soft, nontender and nondistended. EXTREMITIES: No cyanosis, clubbing or edema. LABORATORY DATA: MRI of the head shows marked diminished flow in the right internal carotid and middle cerebral artery, and MRI of the pelvis shows a bony tumor of the right iliac bone and acetabulum with extension into the pelvis. Carotid artery ultrasound shows bilateral 20% to 39% proximal ICA stenosis with antegrade flow in the large right vertebral artery, bidirectional flow in the small vertebral artery. ASSESSMENT: 1. New-onset seizures. 2. Acute cerebrovascular accident of the right frontal and parietal lobe. 3. Acute kidney injury, resolved. 4. 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 5. Right internal carotid artery stenosis by MRA. 6. History of myeloma status post bone marrow transplant. 7. Anemia. PLAN: The patient is currently comfortable. She is on antibiotics. She has urine cultures that shows gram-positive cocci. Repeat urine cultures have been negative. She is on Keppra for seizures. She is going to continue the Plavix. She is on lisinopril for her hypertension. She received IV iron for her anemia. She is on Protonix daily. She is on a heart healthy diet. She has physical therapy that has been ordered. She has a mass in the pelvis that is new. To my knowledge, I do not see anything selected in any of the notes that I have reviewed in the list since yesterday. I will wait Dr. Mays to evaluate and proceed with the best plan of care. Her oncologist is in [place], and the patient may benefit from going back to [place] for further management. Juliocesar Bingham MD
[2017-08-12] MEDS: Insulin Lispro (humaLOG) LOW Coverage SC SCH ×5 (08:06→22:00)
[2017-08-12 08:43] LABS: CREATININE, 24 HOUR URINE 1.31 g/24 h (0.63-2.50)
[2017-08-12] MEDS: Pantoprazole 40 mg EC Tab PO SCH (10:43)
[2017-08-12] MEDS: Amoxicillin-Clav 875-125 mg Tab PO SCH ×2 (10:43→22:00)
--- NOTE | 2017-08-12 12:15 | PN ---
DATE: SUBJECTIVE: The patient has no complaints of any chest pain or shortness of breath. PHYSICAL EXAMINATION: VITAL SIGNS: Temperature is 98.3, pulse of 85, blood pressure 116/69, and respirations 18. GENERAL: The patient is lying in bed, flat, and comfortable. HEENT: No oral lesion. Anicteric sclerae. Moist mucosa. NECK: No JVD, adenopathy, or thyromegaly. CARDIOVASCULAR: S1 and S2, regular. No murmurs, rubs, or gallops. LUNGS: Clear to auscultation bilaterally. No wheeze, rales, or rhonchi. ABDOMEN: Bowel sounds are positive, soft, nontender, and nondistended. EXTREMITIES: No cyanosis, clubbing, or edema. LABORATORY DATA: White count 8.5 and hemoglobin 8.4. ASSESSMENT: 1. Seizures, new onset. 2. Acute cerebrovascular accident of the right frontal and parietal lobe. 3. Acute kidney injury, resolved. 4. 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 5. Right internal carotid artery stenosis by MRA. 6. History of myeloma status post bone marrow transplant. 7. Anemia. PLAN: The patient is currently comfortable. She is receiving antibiotics with Augmentin. The patient is on aspirin daily. She is on IV iron. She is on Lipitor for dyslipidemia. She is on Protonix daily. She is on lisinopril for her hypertension. Juliocesar Bingham MD
--- NOTE | 2017-08-12 14:10 | PN ---
DATE: SUBJECTIVE: The patient is currently seen sitting up in bed. She still has difficulty speaking. She apparently has had no seizure activity on seizure medication. The patient remains on telemetry. MEDICATIONS: Medication list reviewed. The patient is currently on Ativan, Augmentin, Ecotrin, insulin, IV Venofer, Keppra, Lipitor, Plavix, Protonix, and Zestril. OBJECTIVE: INTAKE AND OUTPUT: Intake 360 and output 800. VITAL SIGNS: Blood pressure is 116/69, temperature is 98.3, respiratory rate is 18 with a pulse of 85. HEENT: Shows to be normocephalic and atraumatic. Pupils equally reactive to light and accommodation. Extraocular muscles are intact. Conjunctivae are pale. Sclerae are nonicteric. NECK: Supple. No neck vein distention. CHEST: Clear to auscultation and percussion. No rales. No rhonchi. No wheezing. CARDIOVASCULAR: Shows a regular rate and rhythm without audible murmurs, rubs, or gallops. ABDOMEN: Soft. Bowel sounds normal. No rebound or guarding. No masses. EXTREMITIES: Show no lower extremity edema. She has weakness of the left upper and left lower extremity. NEUROLOGIC: Shows to be partially aphasic with a left hemiparesis. LABORATORY DATA: No recent labs were done. Last CBC showed white blood cell count of 8.5 with a hemoglobin of 8.4 and platelet count of 378,000. The patient's chemistries on 08/10/2017 have returned to normal and have normalized. BUN is down from 38 down to 19. Creatinine is down from 1.7 to 1.1 at her baseline range. Pending at this point time are serum immunofixation, her serum protein electrophoresis results are pending. IMAGING STUDIES: As noted in previous notes. CT scan of the head showed an old right MCA distribution infarct. Brain MRI confirmed these changes. Carotid Doppler study only showed mild carotid artery stenosis. MRI of the head showed diminished flow of the right internal carotid and middle cerebral arteries. Microbiology; urine cultures are positive for Gram-positive cocci. ASSESSMENT: 1. Acute renal failure resolved. BUN and creatinine are back to baseline levels. This is thought to be secondary to dehydration perhaps diarrhea. The patient had been on an DILMA inhibitor and Bactrim at the time of presentation. 2. Status post mild hyponatremia, mild hypercalcemia, and hypomagnesemia and these have all corrected. 3. History of anemia with low iron levels. The patient continues on IV Venofer. 4. History of multiple myeloma, status post bone marrow transplant, this appears to be stable. 5. Past history of cerebrovascular accident with left-sided hemiparesis and a partial aphasia. 6. History of seizures, currently stable on Keppra therapy. PLAN: 1. The patient will continue to be monitored on telemetry if she is stable from a metabolic standpoint. I will repeat a set of laboratory work tomorrow. 2. Followup by Neuro with continuation of present medication. 3. Continuation of Augmentin therapy for possible urinary tract infection. 4. The patient is stable from a renal standpoint. Bienvenido Mcgee MD
[2017-08-13] MEDS ORDERED: Iodixanol 320 MG/ML 100 ML BOTTLE IV ONE (04:57)
[2017-08-13 06:30] LABS: HEMATOCRIT 27.5 % (36.0-48.0); MEAN CELL VOLUME 75.3 fl (80.0-105.0); MEAN CORPUSCULAR HGB CONC 30.5 g/dl (31.0-37.0); MEAN PLATELET VOLUME 8.7 fl (7.0-11.0); RED CELL DISTRIBUTION WIDTH 17.7 % (11.5-14.5); WHITE BLOOD COUNT 10.5 10^3/ul (4.5-11.0)
[2017-08-13 07:22] LABS: ALB/GLOB RATIO 0.9 (1.1-1.8); ALKALINE PHOSPHATASE 96 U/L (38-126); ALT/SGPT 23 U/L (7-56); AST/SGOT 33 U/L (14-36); BILIRUBIN,TOTAL 0.3 mg/dL (0.2-1.3); BLOOD UREA NITROGEN 21 mg/dL (7-21); CALCIUM 9.9 mg/dL (8.4-10.5); CARBON DIOXIDE 29 mmol/L (21-33); CHLORIDE 105 mmol/L (95-110); GFR AFRICAN-AMERICAN > 60; GLUCOSE,RANDOM 131 mg/dL (70-110); MAGNESIUM 1.5 mg/dL (1.7-2.2); PHOSPHOROUS 3.3 mg/dL (2.5-4.5); SODIUM 141 mmol/L (132-148); TOTAL PROTEIN 7.8 g/dL (5.8-8.3)
[2017-08-13] MEDS: Insulin Lispro (humaLOG) LOW Coverage SC SCH ×4 (07:58→22:25)
[2017-08-13] MEDS: Pantoprazole 40 mg EC Tab PO SCH (09:40)
[2017-08-13] MEDS: Amoxicillin-Clav 875-125 mg Tab PO SCH ×2 (09:40→22:25)
--- NOTE | 2017-08-13 11:58 | PN ---
NEUROLOGY PROGRESS NOTE DATE: SUBJECTIVE: The patient lying in the bed, in no acute distress. Denies any headaches or dizziness. PHYSICAL EXAMINATION VITAL SIGNS: Her blood pressure is 100/59, heart rate is 72 per minute, breathing at a rate of 16 per minute, and temperature is 98.3 degrees Fahrenheit. HEENT: Head is normocephalic and atraumatic. NECK: Supple. There are no carotid bruits. LUNGS: Clear. CARDIOVASCULAR: S1 and S2 audible. No murmurs. ABDOMEN: Soft and nontender. Bowel sound are present. NEUROLOGY: Mental Status: The patient is awake and alert. She does have expressive aphasia. She follows all simple commands. Cranial Nerve Examination: Pupils are 3 mm bilaterally reactive to light. Visual muniz are full. Extraocular movements are intact. She has mild decreased nasolabial fold on the left side. She has mild hemiparesis. Gait is deferred at the moment. IMPRESSION: 1. New cerebrovascular accident. 2. New onset of seizure. RECOMMENDATIONS: 1. The patient had no further seizure. 2. The patient is tolerating aspirin and Plavix. 3. The patient will be continued on Keppra 500 mg twice a day. 4. Because of the recurrent cerebrovascular accident, consider insertable loop recorder for occult atrial fibrillation. 5. The patient to have physical therapy and speech therapy. 6. The patient is a good rehab candidate. Thank you for the opportunity to participate in the care of this patient. Walker Tyler MD
--- NOTE | 2017-08-13 13:44 | PN ---
DATE: SUBJECTIVE: A 71-year-old black female with history of CVA with past history of multiple myeloma and recent seizure. The patient has had new CVAs documented without carotid stenosis. Case was discussed with Dr. Tyler, Neurology. We will discuss possibly with Dr. Damian for a loop recorder to rule out paroxysmal atrial fibrillation. The patient is on Plavix, has had recurrent shows on Plavix and discussion for possible other anticoagulation. The patient's strength in the left upper and left lower extremity have improved. Her speech is starting to return. Her creatinine clearance was 70. Her total protein in the urine was only 300. We are awaiting a serum protein electrophoresis to explain her anemia and her history of myeloma. She does have a mass in the right pelvis intact to the right iliac crest, possible recurrent multiple myeloma mass. PHYSICAL EXAMINATION VITAL SIGNS: She is afebrile. Vital signs are stable. Blood pressure is 135/75, temperature 98.3. GENERAL: The patient is more awake, alert, and oriented x3. EXTREMITIES: Her strength is 4/5 in the left upper and left lower extremity 4-5/5. NEUROLOGICAL: Her speech is intermittently improved, but still halting and still searching for words. HEART: Her heart examination reveals a sinus rhythm. Her chest is clear to auscultation. ABDOMEN: Soft. PLAN: We discussed her treatment with her daughter and Dr. Damian's consult for possible loop recorder. Reji Mays MD
--- NOTE | 2017-08-13 20:55 | CON ---
DATE: 08/13/2017 REASON FOR CONSULTATION: Cardiac evaluation. The patient admitted with recurrent CVA, rule out paroxysmal atrial fibrillation. BRIEF CLINICAL HISTORY: This is a 71-year-old female with past medical history of CVA in the past; history of multiple myeloma, status post bone marrow transplantation in 2011; history of CVA twice, 03/2016, 03/2017 with residual left-sided deficit, aphasia, dysarthria; hypertension; diabetes; presented to the ED with weakness and slurring of speech on 08/07. The patient is currently on aspirin, Plavix. Also, noticed to have seizure disorder. The patient is being followed by neurologist and suggested implantable loop recorder because of recurrent CVA. Telemetry strip reviewed since the patient admitted. The patient has documented atrial fibrillation on . The patient denies any chest pain, shortness of breath, any palpitation. PAST MEDICAL HISTORY: Significant for multiple myeloma, status post bone marrow transplantation in 2011; history of CVA in 03/2016, 03/2017 and most recently in 07/2017 when admitted with slurring of speech and aphasia. The patient was seen by me on 02/09/2016 when the patient presented with acute CVA, TIA. Prior to that, the patient admitted to [facility] and it was mentioned in the chart that the patient refused a tPA in 01/2016. The patient a year ago also admitted to the [facility] with TIA symptoms that was in 2014. Again, past history significant for diabetes, hypertension, hyperlipidemia, history of TIA. Now, apparently it looks like the patient was admitted to the [facility] in 12/2014 and then in 01/2016 at [facility]. MRI of the brain in 01/2016 in the [facility] showed acute to early subacute infarct in the right cerebral hemisphere, most likely embolic dated 02/10/2016. This year, MRI showed, 04/07/2017, again most compatible with small multifocal acute infarct in the right centrum semiovale and frontal and parietal lobe. REVIEW OF SYSTEMS: As per HPI. CURRENT MEDICATIONS: The patient is taking aspirin 81 mg, Plavix 75 mg daily, Protonix 40 mg, lisinopril 20, and atorvastatin 20 mg daily. ALLERGIES: NO KNOWN DRUG ALLERGY. PREVIOUS CARDIAC WORKUP: As follows; the patient had echocardiography done 08/10/2017 that showed normal LV function within the normal limit, trace to mild mitral regurgitation, trace to mild aortic regurgitation, mild tricuspid regurgitation, RV systolic pressure reported 43. EKG on 08/08/2017 shows sinus tachycardia. Previous EKG shows normal sinus. Prior to that, the patient had echo on 02/09/2016 that showed ejection fraction 55% to 60%. Mild to moderately right ventricle dilated, systolic RV function is mildly reduced, mild aortic regurgitation, trace to mild mitral regurgitation, mild tricuspid regurgitation, RV systolic pressure 36. IMPRESSION: Recurrent transient ischemic attack, cerebrovascular accident dated back 12/2014 in the [facility] and then the patient had a documented cerebrovascular accident and admission on 02/08/2016 and the patient had MRI done on 02/09/2016 consistent with a stroke, an embolic type as mentioned in the brain MRI result on 02/09/2016. Acute or early subacute infarct in the right cerebral hemisphere, likely embolic dated 02/10/2016. The patient again at this time admitted with history of slurring of speech, weakness, so recurrent multiple stroke that was suspicious for paroxysmal atrial fibrillation, so Cardiology consult was called for loop recorder, but since the patient has had documented atrial fibrillation in the bran mixer on 08/08/2017, so further does not need loop recorder to prove the patient going into paroxysmal atrial fibrillation, already has been documented and well seen in the telemetry strip. Echo of the patient has preserved left ventricular function, ejection fraction of 55% to 60%, no thrombus noted. Trace to mild mitral regurgitation, mild aortic regurgitation, trace to mild tricuspid regurgitation, right ventricular systolic pressure of 43. In view of above, we suggested discontinue aspirin, discontinue Plavix, start Coumadin today, but we will give a call to Dr. Walker Tyler, who is a neurologist if it is okay to start Coumadin. We will get the lipid profile, TSH, hemoglobin A1c if it is not done. Reviewed so far it shows that the patient had cholesterol level 118, LDL 59, HDL 32. We will get the TSH and get the hemoglobin A1c also if not done on this admission. Thank you Dr. Mays/Dr. Bustamante for opportunity in taking care Colin Neri. We will start 5 mg of Coumadin today and further recommendation depend upon the hospital course and PT/INR. Goal is to keep INR between 2 to 2.5. The patient also had bilateral carotid duplex that shows 20% to 39% proximal internal carotid artery stenosis. We will continue aspirin and Plavix for 2 days till the INR gets therapeutic and day after the Sunday dose of Plavix will discontinue and same thing after the Sunday dose of Plavix, aspirin will be discontinued and start Coumadin 5 mg from today. Saurabh Damian MD [facility]
[2017-08-14 07:55] LABS: BETA 1 GLOBULIN 0.5 g/dL (0.4-0.6); BETA 2 GLOBULIN 0.5 g/dL (0.2-0.5); GAMMA GLOBULIN 2.1 g/dL (0.8-1.7)
[2017-08-14] MEDS: Insulin Lispro (humaLOG) LOW Coverage SC SCH ×4 (08:08→22:55)
--- NOTE | 2017-08-14 09:14 | CON ---
ADDENDUM DATE: 08/13/2017 CONSULT SERVICE: Cardiology. Addendum to the initial consult dictated this morning. As mentioned in the consult that the patient had a telemetry strip of paroxysmal atrial fibrillation dated 08/08/2017 at 06:21 p.m. So aspirin, Plavix will be discontinued after Sunday and Coumadin started from today till the level will be up, so the patient gets protection while the level of the INR will be therapeutic till aspirin and Plavix. Also I have discussed with the patient's daughter name Selena, telephone number [phone] and updated the patient's condition, also discussed with the patient's visitor, who is a next door neighbor who takes care of her. Saurabh Damian MD
[2017-08-14] MEDS: Pantoprazole 40 mg EC Tab PO SCH (09:18)
[2017-08-14] MEDS: Amoxicillin-Clav 875-125 mg Tab PO SCH ×2 (09:18→22:08)
[2017-08-14 09:48] LABS: BASO # 0.03 K/mm3 (0.0-2.0); BASO % 0.3 % (0.0-3.0); EOS # 0.3 (0.0-0.7); EOS % 2.8 % (1.5-5.0); GRAN # 6.22 (1.4-6.5); GRAN % 58.3 % (50.0-68.0); HEMATOCRIT 28.8 % (36.0-48.0); LYMPH # 3.5 (1.2-3.4); LYMPH % 32.3 % (22.0-35.0); MEAN CELL VOLUME 75.6 fl (80.0-105.0); MEAN CORPUSCULAR HEMOGLOBIN 23.4 pg (25.0-35.0); MEAN CORPUSCULAR HGB CONC 30.9 g/dl (31.0-37.0); MEAN PLATELET VOLUME 8.3 fl (7.0-11.0); MONO # 0.7 (0.1-0.6); MONO % 6.3 % (1.0-6.0); RED CELL DISTRIBUTION WIDTH 17.8 % (11.5-14.5); WHITE BLOOD COUNT 10.7 10^3/ul (4.5-11.0)
[2017-08-14 09:57] LABS: INR 1.35 (0.93-1.08)
[2017-08-14 09:58] LABS: ALB/GLOB RATIO 0.9 (1.1-1.8); ALKALINE PHOSPHATASE 99 U/L (38-126); ALT/SGPT 23 U/L (7-56); AST/SGOT 29 U/L (14-36); BILIRUBIN,TOTAL 0.2 mg/dL (0.2-1.3); BLOOD UREA NITROGEN 20 mg/dL (7-21); CALCIUM 10.2 mg/dL (8.4-10.5); CARBON DIOXIDE 30 mmol/L (21-33); CHLORIDE 102 mmol/L (98-107); GFR AFRICAN-AMERICAN > 60; GLUCOSE,RANDOM 168 mg/dL (70-110); POTASSIUM 3.8 mmol/L (3.6-5.0); SODIUM 142 mmol/L (132-148); TOTAL PROTEIN 8.1 g/dL (5.8-8.3)
[2017-08-14 13:04] LABS: GAMMA GLOBULIN 15.4 Relative %
--- NOTE | 2017-08-14 13:41 | PN ---
DATE: 08/14/2017 REASON FOR CONSULTATION AND FOLLOWUP: Recurrent CVA and paroxysmal atrial fibrillation. SUBJECTIVE: The patient denies chest pain or shortness of breath, still the patient has expressive aphasia. Refused the blood workup. I have explained the patient in detail the patient is on a blood thinner, needs to monitor the efficacy of the blood thinner and it could be very detrimental if level is too high or too low. OBJECTIVE: GENERAL: The patient has expressive aphasia, lying flat in the bed. VITAL SIGNS: Temperature afebrile, heart rate 72, and blood pressure 115/81. HEENT: PERRLA. Extraocular muscles are intact. NECK: Supple. No carotid bruit or thyromegaly. CHEST: Clear to auscultation. HEART: S1 and S2 regular. ABDOMEN: Soft. EXTREMITIES: Clubbing and cyanosis negative. LABORATORY DATA: Blood workup as follows; WBC 10.5, hemoglobin 8.4, hematocrit 27.5, and platelet count 380. Chemistry shows sodium 141, potassium 4, chloride 105, carbon dioxide 29, anion gap of 11, BUN 21, and creatinine 1.0 as of yesterday. Today, lab is pending. Last INR is 1.06. IMPRESSION: 1. Recurrent cerebrovascular accident (x3) [facility], the patient was admitted in 12/2014, then the patient had admitted in 01/2016, refused tPA, and at this time, the patient again admitted in 03/2017 again and this admission and with residual left-sided weakness. While the patient is in the associate manager affiliate marketing has a documented atrial fibrillation on 08/08/2017 at 6:21 p.m. Most likely symptoms are attributable secondary to paroxysmal atrial fibrillation. 2. History of seizure. 3. Hypertension. 4. Hyperlipidemia. RECOMMENDATIONS: Coumadin started yesterday 7.5 starting 5 mg from tomorrow. We will continue aspirin and Plavix as a bridge until the INR becomes therapeutic. Discussed with the patient's daughter, Kika on the telephone and explained the patient's condition and the need of continuation of the Coumadin on telephone number [phone] yesterday. Also discussed with the neighbor next door who is visiting the patient and take care of the patient yesterday. We will discuss with Dr. Bingham/Dr. Mays. Also discussed with the patient, the patient did not give the blood today and did not allow them to draw the blood and I discussed with the patient that it is very important to monitor PT/INR when the patient is on blood thinner. The patient is stable to be discharged when the therapeutic range of INR is achieved. No need of loop recorder as the patient has documented AFib in the associate manager affiliate marketing as mentioned above. As I mentioned to the daughter that aspirin and Plavix does not provide adequate protection from CVA when the patient was in paroxysmal atrial fibrillation. No risk of bleeding as we will increase the Coumadin, but risks and benefits ratio in favor of continuing of the Coumadin rather than aspirin and Plavix. Thank you Dr. Bingham/Dr. Mays for providing us the opportunity in taking care of the patient, Shaw. Saurabh Damian MD cc: Reji Mays MD and Dr. Bingham
--- NOTE | 2017-08-14 20:09 | PN ---
DATE: SUBJECTIVE: A 71-year-old black female status post CVA and a spell of expressive aphasia and seizure disorder, history of myeloma, treated with a stem cell transplant 5 years ago. Patient has had dropping hemoglobin and hematocrit associated with enhanced background of serum protein electrophoresis and an enhancing mass in the left iliac crest suspicious for recurrent multiple myeloma. Patient was also in consultation with Dr. Damian, who had found some episodes of paroxysmal atrial fibrillation on the monitor necessitating the need for a loop recorder. Patient, therefore, was taken off Plavix and aspirin and started on Coumadin. Case was discussed with the patient's daughter. We will restart her activities so that back at [facility] for possible transfer for treatment of her myeloma. Patient is still aphasic, but she has improving speech, improving strength in the left upper and lower extremity. PHYSICAL EXAMINATION: HEART: Regular sinus rhythm. CHEST: Clear to auscultation and percussion. Reji Mays MD
[2017-08-15] MEDS ORDERED: POLYETHYLENE GLYCOL 3350 17 GM/Dose PACKET PO ONE (02:33)
[2017-08-15 06:48] LABS: INR 1.52 (0.93-1.08)
[2017-08-15] MEDS: Insulin Lispro (humaLOG) LOW Coverage SC SCH ×4 (08:12→22:12)
[2017-08-15] MEDS: Amoxicillin-Clav 875-125 mg Tab PO SCH ×2 (09:11→21:20)
[2017-08-15] MEDS: Pantoprazole 40 mg EC Tab PO SCH (09:11)
[2017-08-15 10:31] LABS: COLLECTION TIME 24 Hours
--- NOTE | 2017-08-15 11:53 | PN ---
REASON FOR CONSULTATION: Follow up of recurrent CVA and paroxysmal atrial fibrillation documented in telemetry strip. SUBJECTIVE: The patient denies any chest pain. Refused blood yesterday, but states that she gave the blood this morning. No chest pain. No palpitation. No shortness of breath. No new complaints. OBJECTIVE: VITAL SIGNS: Temperature afebrile, heart rate 70, and blood pressure 126/77. HEENT: PERRLA. Extraocular muscles are intact. NECK: Supple. No carotid bruit or thyromegaly. CHEST: Clear to auscultation. HEART: S1 and S2 regular. ABDOMEN: Soft. EXTREMITIES: Clubbing and cyanosis negative. LABORATORY DATA: Blood workup as follows: PT/INR 1.52. Chemistry: Sodium 142, potassium 3.0, chloride 102, carbon dioxide 30, anion gap of 14, BUN of 20 and creatinine 1.0. Yesterday, CBC, 10.7, hemoglobin 8.9, hematocrit 28.8, and platelet count 372. IMPRESSION: A 71-year-old female with past medical history of multiple myeloma, status post bone marrow transplant in 2011, admitted with recurrent cerebrovascular accident; this is the third or fourth cerebrovascular accident. The patient had initially in 2014 at [facility], then January and in 03/2016 and then 03/2017 and now admitted with weakness and aphasia, slurring of speech, documented paroxysmal atrial fibrillation in the telemetry on 08/08/2017 at 06:21 p.m., so Plavix and aspirin discontinued and Coumadin started today, INR is 1.52. Discussed with the daughter. MRI also consistent with multifocal acute infarct, consistent with thromboembolic phenomenon. RECOMMENDATION: Aspirin and Plavix were discontinued, the patient was already on aspirin and Plavix before and is getting breakthrough stroke, so Coumadin started today, INR is 1.5, we will wait until the INR is 2. The goal is to keep the INR between 2 to 2.5. 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 The patient does not need loop recorder with already documented AFib in the telemetry; recommendation, continue metoprolol 25 b.i.d. to control the heart rate which is fairly stable now and continue Coumadin, goal is to keep INR about 2, rehab. Continue lisinopril 20 mg for hypertension. We will follow with you. The patient needs long-term anticoagulation because of the recurrent CVA multiple times as well as documented paroxysmal atrial fibrillation. We will repeat PT/INR in the morning. Discharge planning for rehab facility. Thank you Dr. Mays for providing us the opportunity in taking care of Halle Shaw. Saurabh Damian MD
--- NOTE | 2017-08-15 14:57 | PN ---
DATE: SUBJECTIVE: The patient is lying in the bed, in no acute distress, denies having any headache or dizziness. PHYSICAL EXAMINATION VITAL SIGNS: The patient's blood pressure is 118/69, heart rate is 79 per minute, breathing in the rate of 16 per minute, temperature 99 degree Fahrenheit. HEENT: Head is normocephalic, atraumatic. NECK: Supple. There are no carotid bruit. CARDIOPULMONARY: S1, S2 audible. No murmurs. LUNGS: Clear. ABDOMEN: Soft and nontender. Bowel sounds are present. NEURLOGIC: Mental status: The patient is awake and alert. She has nonfluent speech. She follows all four commands. Cranial nerve examination: Pupils are 3 mm bilaterally, reactive to light. Visual muniz are full. Extraocular movements are intact. There is slight decrease in the nasolabial fold on the left side. Motor examination: Tone is normal. There is left-sided hemiparesis. Power in the left side 4/5, power in the right side 5/5. Plantar is downgoing bilaterally. IMPRESSION: 1. Cerebrovascular accident. 2. New onset of seizure. 3. Atrial fibrillation. RECOMMENDATIONS: 1. The patient had no further seizure. 2. The patient to be continued on Keppra. 3. The patient was evaluated by Cardiology who noted that the patient did have atrial fibrillation on telemetry monitoring. The patient was started on Coumadin. 4. The patient's aspirin and Plavix have to be discontinued in a couple of days once INR is therapeutic. 5. The patient has physical therapy and speech therapy. 6. Please continue supportive care and other treatment. Thank you for the opportunity to participate in the care of this patient. Walker Tyler MD
--- NOTE | 2017-08-15 16:34 | PN ---
NEUROLOGY PROGRESS NOTE SUBJECTIVE: The patient is lying on the bed, in no acute distress. Denies having any headache or dizziness. PHYSICAL EXAMINATION: VITAL SIGNS: Her blood pressure is 126/77, heart rate is 70 per minute, breathing at the rate of 16 per minute, and temperature is 97.3 degree Fahrenheit. HEENT: Normocephalic and atraumatic. NECK: Supple. There are no carotid bruits. LUNGS: Clear. CARDIOPULMONARY: S1 and S2 audible. No murmurs. ABDOMEN: Soft, nontender with bowel sounds. NEUROLOGIC: Mental Status: The patient is awake and alert. She follows all simple commands. She does have expiratory failure. Cranial nerve examination: Pupils are 3 mm bilaterally, reactive to light. Visual muniz are full. Extraocular movements are intact. There is decrease in the nasolabial fold on the left side. Motor examination: Tone is normal. There is left-sided hemiparesis with power about 4/5. Plantars are downgoing bilaterally. LABORATORY DATA: Reviewed, shows INR of 1.5. IMPRESSION: 1. Cerebrovascular accident. 2. Atrial fibrillation. 3. New onset of seizure. RECOMMENDATIONS: 1. The patient's INR is still subtherapeutic it is 1.5. Aim is to get it to between 2 to 3. 2. The patient to be continued on statin. 3. The patient has no further seizures. The patient is to be continued on Keppra for stroke prophylaxis. 4. Please continue supportive care and other treatment. Thank you for the opportunity to participate in the care of this patient. Walker Tyler MD
--- NOTE | 2017-08-16 05:28 | CP.PCM.PN ---
Subjective - Date & Time of Evaluation Date of Evaluation: 08/16/17 Time of Evaluation: 05:27 - Subjective Subjective: Patient was seen at bedside. She has expressive aphasia. Complains of epigastric discomfort. Has this discomfort for 2 days, is mild,no radiation,is constant. Did not have bowel movement ,has refused to have miralax yesterday. BP 111/77, T: 98.9*F, pulse ox 95 % on room air. Medical record was reviewed. This 71 year old woman was admitted Has PMH of Objective - Vital Signs/Intake and Output Vital Signs (last 24 hours): Temp Pulse Resp BP Pulse Ox 98.1 F 75 20 124/55 L 94 L 08/16/17 00:01 08/16/17 02:00 08/16/17 00:01 08/16/17 00:01 08/16/17 00:01 Intake and Output: 08/15/17 08/16/17 18:59 06:59 Intake Total 240 Balance 240 - Medications Medications: Current Medications Amoxicillin/Clavulanate Potassium (Augmentin 875 Mg-125 Mg Tab) 1 tab PO Q12 [facility] PRN Reason: Protocol Last Admin: 08/15/17 21:20 Dose: 1 tab Atorvastatin Calcium (Lipitor) 40 mg PO DIN [facility] Last Admin: 08/15/17 17:54 Dose: 40 mg Insulin Human Lispro (Humalog Low) 0 units SC ACHS [facility] PRN Reason: Protocol Last Admin: 08/15/17 22:12 Dose: Not Given Levetiracetam (Keppra) 500 mg PO BID [facility] Last Admin: 08/15/17 17:53 Dose: 500 mg Lisinopril (Zestril) 20 mg PO DAILY [facility] Last Admin: 08/15/17 09:11 Dose: 20 mg Lorazepam (Ativan) 2 mg IVP Q1H PRN; Protocol PRN Reason: Seizure activity Metoprolol Tartrate (Lopressor) 25 mg PO BRKDIN [facility] Last Admin: 08/15/17 17:53 Dose: 25 mg Pantoprazole Sodium (Protonix Ec Tab) 40 mg PO DAILY [facility] Last Admin: 08/15/17 09:11 Dose: 40 mg Warfarin Sodium (Coumadin) 5 mg PO 1800 [facility] PRN Reason: Protocol Last Admin: 08/15/17 17:54 Dose: 5 mg - Labs Labs: 08/14/17 09:40 08/14/17 09:40 PT 16.9 SECONDS (9.4-12.5) H 08/15/17 06:00 INR 1.52 (0.93-1.08) H 08/15/17 06:00 APTT 29.6 Seconds (23.7-30.8) 08/08/17 00:05
[2017-08-16] MEDS ORDERED: Magnesium Hydroxide Susp 30 ml UD PO STA (05:48)
[2017-08-16 06:03] VITALS: O2SAT 95
[2017-08-16] MEDS: Insulin Lispro (humaLOG) LOW Coverage SC SCH ×3 (08:00→17:23)
--- NOTE | 2017-08-16 08:57 | PN ---
DATE: 08/15/2017 SUBJECTIVE: A 71-year-old black female with recurrent multiple myeloma, status post CVA, status post seizure from CVA, left-sided weakness and dysarthria. The patient is stable. PHYSICAL EXAMINATION VITAL SIGNS: Afebrile, blood pressure 127/76. LABORATORY DATA: Hemoglobin is stable at 8.9. Her recent serum protein electrophoresis has shown an M spike consistent with return of her multiple myeloma. She has restricted M spike migrating in the gamma-globulin region. She also was found to have a mass in the right pelvis consistent with a myeloma mass on MRI. The patient also is slightly anemic at 8.9, platelet count is normal, white count is 10.7 and platelet count is 372. Her INR is slightly elevated at 1.5. She was recently started on Coumadin because of recurrent CVA and paroxysmal atrial fibrillation. The patient's calcium is stable at 10.2, magnesium is 1.5. Her total protein was 8.1 and albumin 3.9. The patient is stable. Vital signs are stable. She did have a 24-hour urine, which showed a total protein excretion of 395, which is mildly elevated. The patient's physical examination is unchanged. She still has some left upper and left lower weakness and some dysarthria. Reji Mays MD
[2017-08-16] MEDS: Pantoprazole 40 mg EC Tab PO SCH (09:01)
[2017-08-16] MEDS: Amoxicillin-Clav 875-125 mg Tab PO SCH (09:03)
[2017-08-16 11:32] LABS: INR 1.91 (0.93-1.08)
--- NOTE | 2017-08-16 11:39 | PN ---
DATE: SUBJECTIVE: A 71-year-old white female status post recurrent CVA. PHYSICAL EXAMINATION: VITAL SIGNS: Stable. The patient is afebrile. GENERAL: She is awake, alert, and oriented x3. Physical examination is unchanged. ASSESSMENT: The patient is found to have paroxysmal atrial fibrillation, is changed from Plavix and aspirin to Coumadin. The patient has been anticoagulated at this point. She is status post gastrointestinal bleed, history of multiple myeloma possible recurrence. Case was discussed with her oncologist at [place]. The patient ambulated 400 feet yesterday. She is not a candidate for . She has been denied acute and subacute rehab. We will try to transition this patient to home on anticoagulation and do home physical therapy and speech therapy. She still has expressive aphasia and left upper extremity weakness. PLAN: Plan is to continue anticoagulation, blood pressure control, and physical therapy and occupational therapy. Reji Mays MD
[2017-08-16 12:34] VITALS: RESP 20; TEMP 97.4
--- NOTE | 2017-08-16 15:43 | PN ---
DATE: 08/16/2017 REASON FOR CONSULTATION AND FOLLOWUP: Recurrent CVA and paroxysmal atrial fibrillation documented in telemetry strip. SUBJECTIVE: The patient denies any chest pain but complained of abdominal pain, did not move her bowel since the patient is here. Daughter is at the bedside, named Selena, explained the patient's condition, prognosis, and the history of recurrent CVA and history of paroxysmal atrial fibrillation and the needs of anticoagulation. OBJECTIVE: GENERAL: Not in apparent distress. VITAL SIGNS: As follows: Temperature afebrile, heart rate , blood pressure 142/80. HEENT: PERRLA. Extraocular muscles intact. NECK: Supple. No carotid bruit or thyromegaly. CHEST: Clear to auscultation. HEART: S1 and S2, regular. ABDOMEN: Soft. EXTREMITIES: Clubbing and cyanosis negative. LABORATORY DATA: Blood workup as follows: Last blood workup day before yesterday, WBC 10.3, hemoglobin 8.9, hematocrit 28.8, platelet count 372. The patient refused PT/INR. Discussed with the patient's daughter and emphasis made on the importance of blood drawing because the patient is on a blood thinner. IMPRESSION: Paroxysmal atrial fibrillation, recurrent cerebrovascular accident, aphasia expressive, patient understands . RECOMMENDATIONS: Continue anticoagulation. The goal is to keep the INR between 2 to 2.5. Discontinue aspirin and Plavix. We will follow with you. The patient refused blood workup, emphasis made and put in a stat order for PT/INR. We will follow with you. Further recommendations depend upon hospital course. Saurabh Damian MD
[2017-08-16 17:27] VITALS: BP 154/90
[2017-08-16 19:59] VITALS: PULSE 88
--- NOTE | 2017-08-18 03:22 | DS ---
SUMMARY: She is a 71-year-old black female with a history of multiple myeloma, status post treatment with a stem cell transplant. The patient was admitted with new seizures and new CVA, and was found to have paroxysmal atrial fibrillation. She was switched to Coumadin from Plavix and aspirin. She did have some aphasia and she also had some residual weakness in the left upper and left lower extremities. She did physical therapy, speech therapy, and occupational therapy. She did well. Eventually, she was able to be discharged home to continue Coumadin at home and physical therapy at home and speech therapy at home. 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 MRIs and laboratory data were sent to and he will follow up, however, as an outpatient for her multiple myeloma. On discharge diagnosis, this patient with new CVA and new seizure disorder expressive aphasia, left hemiparesis, history of multiple myeloma. Reji Mays MD
== END 2017-08-16 21:00 | disposition home or self-care (01) | DRG 65 ==
LOC: ED 23:15 → OBSVTOIN 08-08 01:19 → ERH 08-08 01:19 → 2RSO 08-08 03:18 → CCU 08-08 21:27 → 2RNO 08-10 15:54
PROVIDERS: ADMIT Internal Medicine; ATTEND Internal Medicine
DX: I63.9 Cerebral infarction, unspecified (principal); N17.9 Acute kidney failure, unspecified; E87.1 Hypo-osmolality and hyponatremia; M84.459A Pathological fracture, hip, unspecified, initial encounter for fracture; C90.01 Multiple myeloma in remission; N39.0 Urinary tract infection, site not specified; I69.354 Hemiplegia and hemiparesis following cerebral infarction affecting left non-dominant side; I48.0 Paroxysmal atrial fibrillation; E86.0 Dehydration; E83.42 Hypomagnesemia; I10 Essential (primary) hypertension; E83.52 Hypercalcemia; G40.909 Epilepsy, unspecified, not intractable, without status epilepticus; E11.9 Type 2 diabetes mellitus without complications; F80.1 Expressive language disorder; E78.5 Hyperlipidemia, unspecified; D50.9 Iron deficiency anemia, unspecified; I65.21 Occlusion and stenosis of right carotid artery; Z79.82 Long term (current) use of aspirin; Z79.84 Long term (current) use of oral hypoglycemic drugs; I69.320 Aphasia following cerebral infarction

== ENCOUNTER 2017-08-18 10:50 | Emergency (ER) | payer MEDICARE ==
[2017-08-18 11:20] VITALS: BMI 27.1
--- NOTE | 2017-08-18 11:30 | ED PDOC ---
Arrival/HPI - General Chief Complaint: Abdominal Pain Time Seen by Provider: 08/18/17 10:54 Historian: Patient - History of Present Illness Narrative History of Present Illness (Text): 08/18/17 11:30 A 71 year old female, whose past medical history includes 2 strokes with left sided residual deficit, stem cell transplant (2011), hypertension and diabetes, presents to the emergency department with a complaint of constipation and abdominal pain for the past few days. The patient was discharged yesterday. The daughter states that that patient has not had a bowel movement prior to the patient's discharge. The patient denies fevers, chills, headache, dizziness, chest pain, shortness of breath, dyspnea on exertion, cough, nausea, vomiting, diarrhea, back pain, neck pain, urinary changes, or any other complaint. PMD: Dr. Biggs 08/18/17 13:22 Time/Duration: Other (Past few days) Symptom Onset: Sudden Symptom Course: Unchanged Activities at Onset: Rest, Light Context: Home Past Medical History - Provider Review Nursing Documentation Reviewed: Yes - Infectious Disease Hx of Infectious Diseases: None - Tetanus Immunization Tetanus Immunization: Unknown - Cardiac Hx Hypertension: Yes - Pulmonary Hx Respiratory Disorders: No - Neurological HX Cerebrovascular Accident: Yes (with expressive aphasia) - HEENT Hx HEENT Disorder: No - Renal Hx Renal Disorder: No - Endocrine/Metabolic Hx Diabetes Mellitus Type 2: Yes - Hematological/Oncological Hx Blood Disorders: No Hx Cancer: Yes (multiple myeloma in remission) Other/Comment: stem cell transplant 2012 - Integumentary Hx Dermatological Disorder: No - Musculoskeletal/Rheumatological Hx Falls: Yes (past) - Gastrointestinal Hx Gastroesophageal Reflux: Yes - Genitourinary/Gynecological Hx Genitourinary Disorders: No - Psychiatric Hx Psychophysiologic Disorder: No Hx Substance Use: No - Surgical History Other/Comment: stem cell transplant 2012 - Anesthesia Hx Anesthesia: Yes Hx Anesthesia Reactions: No Hx Malignant Hyperthermia: No - Suicidal Assessment Feels Threatened In Home Enviroment: No Family/Social History - Physician Review Nursing Documentation Reviewed: Yes Family/Social History: No Known Family HX Smoking Status: Never Smoked Hx Alcohol Use: No Hx Substance Use: No Hx Substance Use Treatment: No Allergies/Home Meds Allergies/Adverse Reactions: Allergies No Known Allergies Allergy (Verified 08/07/17 23:39) Home Medications: Home Meds Medication Instructions Recorded Confirmed Atorvastatin [Lipitor] 1 tab PO DAILY 10/18/17 10/28/17 Review of Systems - Physician Review All systems were reviewed & negative as marked: Yes - Review of Systems Constitutional: absent: Fevers, Night Sweats ENT: absent: Sore Throat Respiratory: absent: SOB Cardiovascular: absent: Chest Pain, WRIGHT Gastrointestinal: Constipation. absent: Abdominal Pain, Diarrhea, Nausea, Vomiting Genitourinary Female: absent: Urine Output Changes Musculoskeletal: absent: Back Pain, Neck Pain Neurological: absent: Headache, Dizziness Physical Exam Vital Signs Reviewed: Yes Vital Signs Temp Pulse Resp BP Pulse Ox 08/18/17 13:28 98.2 F 88 19 140/85 99 08/18/17 11:16 98.4 F 81 17 139/80 100 Temperature: Afebrile Blood Pressure: Normal Pulse: Regular Respiratory Rate: Normal Appearance: Positive for: Well-Appearing, Non-Toxic, Comfortable Pain Distress: None Mental Status: Positive for: Alert and Oriented X 3 Finger Stick Blood Glucose: 186 - Systems Exam Head: Present: Atraumatic, Normocephalic Pupils: Present: PERRL Extroacular Muscles: Present: EOMI Conjunctiva: Present: Normal Mouth: Present: Moist Mucous Membranes Neck: Present: Normal Range of Motion Respiratory/Chest: Present: Clear to Auscultation, Good Air Exchange. No: Respiratory Distress, Accessory Muscle Use Cardiovascular: Present: Regular Rate and Rhythm, Normal S1, S2. No: Murmurs Abdomen: Present: Tenderness (Mild no-focal abdominal tenderness) Rectal: Present: Other (Hard stool in the rectum) Back: Present: Normal Inspection Upper Extremity: Present: Normal Inspection. No: Cyanosis, Edema Lower Extremity: Present: Normal Inspection. No: Edema Neurological: Present: GCS=15, CN II-XII Intact, Speech Normal Skin: Present: Warm, Dry, Normal Color. No: Rashes Psychiatric: Present: Alert, Oriented x 3, Normal Insight, Normal Concentration Medical Decision Making ED Course and Treatment: 08/18/17 11:40 Impression: A 71 year old female presents to the emergency department with a complaint of constipation/abdominal pain Plan: -- Feet Edema -- Reassess and disposition Prior Visits: Notes and results from previous visits were reviewed. Patient was last seen in the emergency department on 08/07/2017. The patient was seen in the emergency department for furthere evaluation of slurred speech and tremors. The patient was hospitalized. Progress Notes: 08/18/17 12:32: Patient was given the fleet enema and manual disimpaction was performed on the patient. Removed a large amount of stool. stool noted to mixed blood and stool. pt on warfarin. requested pt to recieve lab work imaging as pt on warfarin. daughter and patient initally consent, now refuse, signing out ama. pt/daughter advised of risk as pt on warfarin with gross blood rectally. agree to return with worsening symptoms or concerns. 08/18/17 13:37 Leaving Against Medical Advice (AMA): The patient is choosing to leave against medical advice. I have personally explained to the patient that choosing to do so may result in permanent bodily harm or . I have discussed at great length that without further evaluation and monitoring there may be unforeseen circumstances and/or deterioration causing permanent bodily harm or as a result of their choice. The patient is alert, oriented, and shows the mental capacity to make clear decisions regarding the patients health care at this time. The patient continues to wish to leave against medical advice. The patient has been advised that they should return to the emergency room immediately if they change their mind at any time, or if their condition begins to change or worsen in any way. - Lab Interpretations Lab Results: Lab Results 08/18/17 11:10: POC Glucose (mg/dL) 186 H - Medication Orders Current Medication Orders: Discontinued Medications Sodium Phosphate (Fleet Enema) 135 ml RC STAT STA Stop: 08/18/17 11:27 Last Admin: 08/18/17 11:36 Dose: 135 ml - Scribe Statement The provider has reviewed the documentation as recorded by the Maggie Dos Santos Provider Scribe Attestation: All medical record entries made by the Scribe were at my direction and personally dictated by me. I have reviewed the chart and agree that the record accurately reflects my personal performance of the history, physical exam, medical decision making, and the department course for this patient. I have also personally directed, reviewed, and agree with the discharge instructions and disposition. Disposition/Present on Arrival - Present on Arrival History of DVT/PE: No History of Uncontrolled Diabetes: Yes Urinary Catheter: No History of Decub. Ulcer: No History Surgical Site Infection Following: None - Disposition Diagnosis: Abdominal pain, Fecal impaction, Rectal bleeding Disposition: AGAINST MEDICAL ADVICE Condition: UNKNOWN Discharge Instructions (ExitCare): Constipation (ED), Rectal Bleeding (ED), Abdominal Pain (ED) Additional Instructions: you are declining lab work and ct imaging. you are able to return to er with any worsening symptoms or concerns. Referrals: Ahandyhandverna Khoury Rereji, [Primary Care Provider] - Follow up with primary Rafa Holman MD [Staff Provider] - Follow up with primary Forms: [employer] (Estonian)
[2017-08-18 13:30] VITALS: BP 140/85; PULSE 88; RESP 19; TEMP 98.2; O2SAT 99
== END 2017-08-18 13:28 | disposition left against medical advice (07) ==
LOC: ED 10:50
DX: R10.9 Unspecified abdominal pain (principal); K56.41 Fecal impaction; K62.5 Hemorrhage of anus and rectum

== ENCOUNTER 2017-10-19 01:13 | Emergency (ER) | payer MEDICARE ==
[2017-10-19 01:17] VITALS: BMI 28.3
[2017-10-19 01:28] VITALS: TEMP 99.7
[2017-10-19] MEDS ORDERED: Sodium Chloride 0.9% 500 ML IV STA (01:34)
--- NOTE | 2017-10-19 01:44 | ED PDOC ---
Arrival/HPI - General Chief Complaint: Weakness/Neurological Deficit Time Seen by Provider: 10/19/17 01:16 Historian: Patient - History of Present Illness Narrative History of Present Illness (Text): 10/19/17 01:44 A 72 year old female, whose past medical history includes hypertension, diabetes , and stroke with left sided residual deficits, was brought in by EMS to the emergency department with chronic left sided weakness and lethargy. Patient is nonverbal. History provided by daughter. Daughter reports patient was weak and had dark stools. Patient is usually able to ambulate, today was unable to walk. Reports to giving patient Tylenol. Notes UTI in the past. Reports left hand pain but denies any other complaints at this time. Symptom Onset: Sudden Symptom Course: Unchanged Activities at Onset: Rest Context: Home Past Medical History - Provider Review Nursing Documentation Reviewed: Yes - Infectious Disease Hx of Infectious Diseases: None - Tetanus Immunization Tetanus Immunization: Unknown - Cardiac Hx Hypertension: Yes - Pulmonary Hx Respiratory Disorders: No - Neurological HX Cerebrovascular Accident: Yes (with expressive aphasia) - HEENT Hx HEENT Disorder: No - Renal Hx Renal Disorder: No - Endocrine/Metabolic Hx Diabetes Mellitus Type 2: Yes - Hematological/Oncological Hx Blood Disorders: No Hx Cancer: Yes (multiple myeloma in remission) Other/Comment: stem cell transplant 2012 - Integumentary Hx Dermatological Disorder: No - Musculoskeletal/Rheumatological Hx Falls: Yes (past) - Gastrointestinal Hx Gastroesophageal Reflux: Yes - Genitourinary/Gynecological Hx Genitourinary Disorders: No - Psychiatric Hx Psychophysiologic Disorder: No Hx Substance Use: No - Surgical History Other/Comment: stem cell transplant 2012 - Anesthesia Hx Anesthesia: Yes Hx Anesthesia Reactions: No Hx Malignant Hyperthermia: No - Suicidal Assessment Feels Threatened In Home Enviroment: No Family/Social History - Physician Review Nursing Documentation Reviewed: Yes Family/Social History: No Known Family HX Smoking Status: Never Smoked Hx Alcohol Use: No Hx Substance Use: No Hx Substance Use Treatment: No Allergies/Home Meds Allergies/Adverse Reactions: Allergies No Known Allergies Allergy (Verified 10/19/17 01:16) Home Medications: Home Meds Medication Instructions Recorded Confirmed Atorvastatin [Lipitor] 1 tab PO DAILY 08/08/17 10/19/17 Acetaminophen [Tylenol 325mg tab] 325 mg PO BID 10/19/17 10/19/17 Linagliptin [Tradjenta] 5 mg PO DAILY 10/19/17 10/19/17 Sennosides [Senna] 8.6 mg PO DAILY 10/19/17 10/19/17 Review of Systems - Physician Review All systems were reviewed & negative as marked: Yes - Review of Systems Constitutional: Other (lethargy) Gastrointestinal: Other (dark stools) Musculoskeletal: Other (left sided weakness; left hand pain) Physical Exam Vital Signs Reviewed: Yes Vital Signs Temp Pulse Resp BP Pulse Ox 10/19/17 05:35 83 18 125/68 97 10/19/17 03:14 83 19 127/69 97 10/19/17 01:25 99.7 F H 81 19 126/68 95 Temperature: Afebrile Blood Pressure: Normal Pulse: Regular Respiratory Rate: Normal Appearance: Positive for: Well-Appearing, Comfortable Pain Distress: None Mental Status: Positive for: other (awake, lethargic, nonverbal) - Systems Exam Head: Present: Atraumatic, Normocephalic Pupils: Present: PERRL Extroacular Muscles: Present: EOMI Conjunctiva: Present: Normal Mouth: Present: Dry Neck: Present: Normal Range of Motion Respiratory/Chest: Present: Clear to Auscultation, Good Air Exchange. No: Respiratory Distress, Accessory Muscle Use Cardiovascular: Present: Regular Rate and Rhythm, Normal S1, S2. No: Murmurs Abdomen: Present: Normal Bowel Sounds. No: Tenderness, Distention, Peritoneal Signs Back: Present: Normal Inspection Upper Extremity: Present: Normal Inspection. No: Cyanosis, Edema Lower Extremity: Present: Normal Inspection. No: Edema Neurological: Present: GCS=15, CN II-XII Intact Skin: Present: Warm, Dry, Normal Color. No: Rashes Psychiatric: Present: Alert, Oriented x 3, Lethargic Medical Decision Making ED Course and Treatment: 10/19/17 01:41 Impression: A 72 year old female with chronic left sided weakness, left hand pain and lethargy. Plan: -- labs -- IV fluids -- Urinalysis -- Reassess and disposition Prior Visits: Notes and results from previous visits were reviewed. Patient was last seen in the emergency department on 08/18/17 for evaluation of constipation and abdominal pain. Progress Notes: - Lab Interpretations Lab Results: 10/19/17 01:55 10/19/17 01:55 Lab Results 10/19/17 03:17: Urine Color Yellow, Urine Appearance Sl cloudy, Urine pH 6.0, Ur Specific [place] 1.020, Urine Protein 30 H, Urine Glucose (UA) Negative, Urine Ketones Negative, Urine Blood Large H, Urine Nitrate Negative, Urine Bilirubin Negative, Urine Urobilinogen 0.2, Ur Leukocyte Esterase Negative, Urine RBC 10 - 15, Urine WBC 0 - 2, Ur Epithelial Cells 0 - 2, Amorphous Sediment Few 10/19/17 01:55: Sodium 140, Potassium 3.9, Chloride 102, Carbon Dioxide 27, Anion Gap 15, BUN 25 H, Creatinine 1.2, Est GFR ( Amer) 54, Est GFR (Non- Af Amer) 44, Random Glucose 169 H, Calcium 9.8, Total Bilirubin 0.4, AST 21, ALT 23, Alkaline Phosphatase 106, Total Protein 8.7 H, Albumin 4.0, Globulin 4.7 , Albumin/Globulin Ratio 0.8 L 10/19/17 01:55: WBC 9.0, RBC 4.13, Hgb 10.4 L, Hct 32.8 L, MCV 79.4 L D, MCH 25.2, MCHC 31.7, RDW 19.6 H, Plt Count 297, MPV 8.9, Gran % 73.4 H, Lymph % ( Auto) 16.7 L, Ida % (Auto) 9.1 H, Eos % (Auto) 0.7 L, Baso % (Auto) 0.1, Gran # 6.62 H, Lymph # 1.5, Ida # 0.8 H, Eos # 0.1, Baso # 0.01 I have reviewed the lab results: Yes - Medication Orders Current Medication Orders: Discontinued Medications Sodium Chloride (Sodium Chloride 0.9%) 500 mls @ 999 mls/hr IV .Q31M STA Stop: 10/19/17 02:04 Last Admin: 10/19/17 02:00 Dose: 999 mls/hr eMAR Start Stop Document 10/19/17 02:00 COLLIN (Rec: 10/19/17 02:13 COLLIN [id number]) Intravenous Solution Start Date 10/19/17 Start Time 02:00 End Date 10/19/17 End time 02:30 Total Infusion Time 30 - Scribe Statement The provider has reviewed the documentation as recorded by the Maggie Billy Provider Scribe Attestation: All medical record entries made by the Maggie were at my direction and personally dictated by me. I have reviewed the chart and agree that the record accurately reflects my personal performance of the history, physical exam, medical decision making, and the department course for this patient. I have also personally directed, reviewed, and agree with the discharge instructions and disposition. Disposition/Present on Arrival - Present on Arrival Any Indicators Present on Arrival: No History of DVT/PE: No History of Uncontrolled Diabetes: Yes Urinary Catheter: No History of Decub. Ulcer: No History Surgical Site Infection Following: None - Disposition Have Diagnosis and Disposition been Completed?: Yes Diagnosis: Viral syndrome Disposition: HOME/ ROUTINE Disposition Time: 05:39 Condition: STABLE Forms: [employer] (Czech)
[2017-10-19 02:10] LABS: BASO # 0.01 K/mm3 (0.0-2.0); BASO % 0.1 % (0.0-3.0); EOS # 0.1 (0.0-0.7); EOS % 0.7 % (1.5-5.0); GRAN # 6.62 (1.4-6.5); GRAN % 73.4 % (50.0-68.0); HEMOGLOBIN 10.4 g/dL (12.0-16.0); LYMPH # 1.5 (1.2-3.4); LYMPH % 16.7 % (22.0-35.0); MEAN CORPUSCULAR HEMOGLOBIN 25.2 pg (25.0-35.0); MEAN CORPUSCULAR HGB CONC 31.7 g/dl (31.0-37.0); MEAN PLATELET VOLUME 8.9 fl (7.0-11.0); MONO # 0.8 (0.1-0.6); MONO % 9.1 % (1.0-6.0); RBC 4.13 10^6/uL (3.5-6.1); RED CELL DISTRIBUTION WIDTH 19.6 % (11.5-14.5)
[2017-10-19 02:23] LABS: MEAN CELL VOLUME 79.4 fl (80.0-105.0)
[2017-10-19 02:25] LABS: CALCIUM 9.8 mg/dL (8.4-10.5)
[2017-10-19 02:26] LABS: ALB/GLOB RATIO 0.8 (1.1-1.8)
[2017-10-19 04:02] LABS: URINE BILIRUBIN NEGATIVE (NEGATIVE); URINE BLOOD LARGE (NEGATIVE); URINE GLUCOSE (UA) NEGATIVE (NEGATIVE); URINE LEUKOCYTE ESTERASE NEGATIVE Leu/uL (NEGATIVE); URINE NITRATE NEGATIVE (NEGATIVE); URINE PROTEIN 30 mg/dL (<30 mg/dL); URINE UROBILINOGEN 0.2 E.U./dL (<1 E.U./dL)
[2017-10-19 04:19] LABS: URINE APPEARANCE SL CLOUDY (CLEAR); URINE COLOR YELLOW (YELLOW)
[2017-10-19 04:30] LABS: URINE EPITHELIAL CELLS 0 - 2 /hpf (0-5)
[2017-10-19 04:31] LABS: URINE AMORPHOUS SEDIMENT FEW; URINE WBC 0 - 2 /hpf (0-6)
[2017-10-19 06:05] VITALS: BP 125/68; PULSE 83; RESP 18; O2SAT 97
== END 2017-10-19 05:39 | disposition home or self-care (01) ==
LOC: ED 01:13
DX: B34.9 Viral infection, unspecified (principal); I10 Essential (primary) hypertension
CPT/HCPCS: 80053; 81001; 85025; 99285; J7040

== ENCOUNTER 2017-10-30 19:41 | Inpatient (IN) | payer MEDICARE ==
--- NOTE | 2017-10-30 20:12 | ED PDOC ---
Arrival/HPI - General Time Seen by Provider: 10/30/17 19:58 Historian: Patient, Family (Daughter) - History of Present Illness Narrative History of Present Illness (Text): 10/30/17 20:11 A 72 year old female, whose past medical history includes diabetes, multiple myeloma, and multiple TIA/CVA, brought into the emergency department by EMS for evaluation concerning periods of possible increased left sided weakness and worsening dysarthria. According to daughter, patient had left sided hemiparesis and speech impairment prior. She notes patient receives speech therapy. Daughter became worried her mother was having possbly another stroke so she brought her in for further evaluation. Patient denies any fever, chills, appetite changes, nausea, vomiting, diarrhea, abdominal pain, chest pain, shortness of breath or any other complaints. PMD: Dr. Mays Time/Duration: Prior to Arrival Context: Home Past Medical History - Provider Review Nursing Documentation Reviewed: Yes - Infectious Disease Hx of Infectious Diseases: None - Tetanus Immunization Tetanus Immunization: Unknown - Cardiac Hx Hypertension: Yes - Pulmonary Hx Respiratory Disorders: No - Neurological HX Cerebrovascular Accident: Yes (with expressive aphasia) - HEENT Hx HEENT Disorder: No - Renal Hx Renal Disorder: No - Endocrine/Metabolic Hx Diabetes Mellitus Type 2: Yes - Hematological/Oncological Hx Blood Disorders: No Hx Cancer: Yes (multiple myeloma in remission) Other/Comment: stem cell transplant 2012 - Integumentary Hx Dermatological Disorder: No - Musculoskeletal/Rheumatological Hx Falls: Yes (past) - Gastrointestinal Hx Gastroesophageal Reflux: Yes - Genitourinary/Gynecological Hx Genitourinary Disorders: No - Psychiatric Hx Psychophysiologic Disorder: No Hx Substance Use: No - Surgical History Other/Comment: stem cell transplant 2012 - Anesthesia Hx Anesthesia: Yes Hx Anesthesia Reactions: No Hx Malignant Hyperthermia: No - Suicidal Assessment Feels Threatened In Home Enviroment: No Family/Social History - Physician Review Nursing Documentation Reviewed: Yes Family/Social History: No Known Family HX Smoking Status: Never Smoked Hx Alcohol Use: No Hx Substance Use: No Hx Substance Use Treatment: No Allergies/Home Meds Allergies/Adverse Reactions: Allergies No Known Allergies Allergy (Verified 10/19/17 01:16) Home Medications: Home Meds Medication Instructions Recorded Confirmed Atorvastatin [Lipitor] 1 tab PO DAILY 08/08/17 10/30/17 Acetaminophen [Tylenol 325mg tab] 325 mg PO BID 10/19/17 10/30/17 Linagliptin [Tradjenta] 5 mg PO DAILY 10/19/17 10/30/17 Sennosides [Senna] 8.6 mg PO DAILY 10/19/17 10/30/17 Rivaroxaban [Xarelto] 20 mg PO DAILY 10/30/17 10/30/17 Review of Systems - Physician Review All systems were reviewed & negative as marked: Yes - Review of Systems Constitutional: absent: Fevers, Night Sweats Respiratory: absent: SOB Cardiovascular: absent: Chest Pain Gastrointestinal: absent: Abdominal Pain, Diarrhea, Nausea, Vomiting Neurological: Focal Weakness (Inreased left sided weakness), Speech Changes ( possible dysarthria) Physical Exam Vital Signs Reviewed: Yes Vital Signs Temp Pulse Resp BP Pulse Ox 10/31/17 05:30 98 H 20 178/90 H 100 10/31/17 04:30 98.3 F 88 6 L 145/100 H 100 10/31/17 01:40 80 18 114/70 97 10/30/17 21:55 88 18 131/75 99 10/30/17 21:40 102.5 F H 10/30/17 20:24 102.5 F H 85 20 167/76 H 97 Temperature: Febrile Blood Pressure: Normal Pulse: Regular Respiratory Rate: Normal Appearance: Positive for: Well-Appearing Pain Distress: None Mental Status: Positive for: Alert and Oriented X 3 - Systems Exam Head: Present: Atraumatic, Normocephalic Pupils: Present: PERRL Extroacular Muscles: Present: EOMI Conjunctiva: Present: Normal Ears: Present: NORMAL TM Mouth: Present: Moist Mucous Membranes Pharnyx: Present: Normal Neck: Present: Normal Range of Motion. No: Meningeal Signs Respiratory/Chest: Present: Clear to Auscultation, Good Air Exchange. No: Respiratory Distress, Accessory Muscle Use Cardiovascular: Present: Regular Rate and Rhythm, Normal S1, S2. No: Murmurs Abdomen: Present: Normal Bowel Sounds. No: Tenderness, Distention, Peritoneal Signs Back: Present: Normal Inspection Upper Extremity: Present: Normal Inspection. No: Cyanosis, Edema Lower Extremity: Present: Normal Inspection. No: Edema Neurological: Present: GCS=15, CN II-XII Intact, Other (left sided hemiparesis/ mild dysarthria) Skin: Present: Warm, Dry, Normal Color. No: Rashes Psychiatric: Present: Alert, Oriented x 3 Medical Decision Making ED Course and Treatment: 10/30/17 20:11 Impression: A 72 year old female brought in for possible increased left sided weakness and dysarthria. Plan: -- Head CT -- Chest xray -- EKG -- Labs -- Blood and Urine culture -- Urinalysis -- Reassess and disposition Progress Notes: Code stroke activated at 20:06 10/30/17 21:58 EKG: Ordered, reviewed, and independently interpreted the EKG. Rate : 82 BPM Rhythm : NSR Interpretation : No ST-segment elevations or depressions, no T-wave inversions, normal intervals. 10/30/17 21:58 Chest X-ray reviewed, shows no acute processes. 10/31/17 00:10 Case discussed with neurologist, Dr. Carmona. Patient is not a candidate for tPA. 10/31/17 00:[address] Mays for case, awaiting call. 10/31/17 02:19 Discussed case with BLAYNE Muniz, covering for Dr. Mays, who is aware and agrees to accept patient under his service. - Lab Interpretations Lab Results: 10/30/17 20:45 10/30/17 21:37 Lab Results 10/30/17 21:37: Sodium 141, Chloride 102, Potassium 4.3, Carbon Dioxide 27, Anion Gap 17, BUN 36 H, Creatinine 1.6 H, Est GFR ( Amer) 38, Est GFR ( Non-Af Amer) 32, Random Glucose 163 H, Calcium 10.1, Total Bilirubin 0.3, AST 16 , ALT 25, Alkaline Phosphatase 103, Troponin I < 0.01 D, Total Protein 8.7 H, Albumin 4.0, Globulin 4.7, Albumin/Globulin Ratio 0.9 L, Triglycerides 99, Cholesterol 118 L, LDL Cholesterol Direct 60, HDL Cholesterol 28 L 10/30/17 20:50: pO2 46, VBG pH 7.37, VBG pCO2 51.0, VBG HCO3 29.5 H, VBG Total CO2 31.1 H, VBG O2 Sat (Calc) 79.6 H, VBG Base Excess 3.1 H, VBG Potassium 5.5 H , Sodium 139.0, Chloride 105.0, Glucose 175 H, Lactate 2.3 H, FiO2 21.0, Venous Blood Potassium 5.5 H 10/30/17 20:45: Blood Type O POSITIVE, Antibody Screen Negative, BBK History Checked Patient has bt 10/30/17 20:45: PT 25.6 H, INR 2.21 H, APTT 47.1 H 10/30/17 20:45: WBC 11.9 H D, RBC 3.94, Hgb 10.0 L, Hct 31.3 L, MCV 79.4 L, MCH 25.4, MCHC 31.9, RDW 19.0 H, Plt Count 356, MPV 9.3, Gran % 61.8, Lymph % (Auto ) 26.0, Barton % (Auto) 10.6 H, Eos % (Auto) 1.4 L, Baso % (Auto) 0.2, Gran # 7.33 H, Lymph # 3.1, Barton # 1.3 H, Eos # 0.2, Baso # 0.02 10/30/17 20:03: POC Glucose (mg/dL) 157 H I have reviewed the lab results: Yes - RAD Interpretation Radiology Orders: 10/30/17 20:05 HEAD W/O (CODE STROKE) [CT] Stat CHEST ONE VIEW [RAD] Stat Box Printer: ED Physician - EKG Interpretation Interpreted by ED Physician: Yes Type: 12 lead EKG - Medication Orders Current Medication Orders: Sodium Chloride (Sodium Chloride 0.9%) 1,000 mls @ 100 mls/hr IV .Q10H STA Stop: 10/31/17 11:04 Last Admin: 10/31/17 01:10 Dose: 100 mls/hr eMAR Start Stop Document 10/31/17 01:10 RD (Rec: 10/31/17 02:24 [place] [facility] [id number] Intravenous Solution Start Date 10/31/17 Start Time 01:10 Discontinued Medications Acetaminophen (Tylenol 650 Mg Supp) 650 mg RC STAT STA Stop: 10/31/17 01:08 Last Admin: 10/30/17 21:40 Dose: 650 mg MAR Pain/Vitals Document 10/30/17 21:40 RD (Rec: 10/31/17 01:09 [place] [facility] [id number] Pain Reassessment Is This A Pain ReAssessment? No Sleep Is patient sleeping during reassessment? No Presence of Pain Presence of Pain No Vitals Temperature (97.6 F-99.6 F) 102.5 F Ceftriaxone Sodium (Rocephin 1 Gram Ivpb) 1 gm in 100 mls @ 200 mls/hr IV ONCE STA PRN Reason: Protocol Stop: 10/30/17 22:34 Last Admin: 10/31/17 00:20 Dose: 200 mls/hr eMAR Start Stop Document 10/31/17 00:20 RD (Rec: 10/31/17 01:06 RD [facility] [id number]) Intravenous Solution Start Date 10/31/17 Start Time 00:20 End Date 10/31/17 End time 00:50 Total Infusion Time 30 Sodium Chloride (Sodium Chloride 0.9%) 2,000 mls @ 2,000 mls/hr IV .Q1H ONE Stop: 10/30/17 23:09 Last Admin: 10/30/17 23:50 Dose: 2,000 mls/hr eMAR Start Stop Document 10/30/17 23:50 RD (Rec: 10/31/17 01:07 RD [facility] [id number]) Intravenous Solution Start Date 10/30/17 Start Time 23:50 End Date 10/31/17 End time 00:20 Total Infusion Time 30 NIHSS Scale ([place]) Time Performed: 20:10 - How Severe is the Stoke Baseline Level of Consciousness: 0=Alert LOC to Questions: 0=Both comments correct LOC to commands: 0=Obeys both correctly Best Gaze: 0=Normal Visual: 0=No visual loss Facial: 0=Normal Motor Arm - Left: 1=Drift noted before 10 sec Motor Arm - Right: 0=No drift Motor Leg - Left: 1=Drift before 5 sec Motor Leg - Right: 0=No drift Limb Ataxia: 0=Absent Sensory: 0=Normal Best Language: 0=No aphasia Dysarthia: 1=Mild to moderate slurring Extinction & Inattention (Neglect): 0=Normal, no object Score: 3 Risk Level: Minor Stroke Risk rTPA Inclusion/Exclusion - Refusal of Treatment Patient Refused Treatment: No - Inclusion Criteria for Altepase Patient is 18 years or Older: Yes The Clinical Diagnosis of Ischemic Stroke That is Causing a Potentially Disabling Neurological Deficit: No Time of Onset is Well Established to be Less Than 270 Minute Before Treatment Would Begin: No Risk/Benefit Discussed With Patient/Family Member Present: Yes - Exclusion Criteria for Altepase Uncontrolled Hypertension at Time of Treatment (Systolic BP above 185 or Diastolic BP above 110 mmHg): No Active Internal Bleeding: No Known Bleeding Diathesis Including but Not Limited to: Platelets Below 100,000/ mm,PTT Above 40 sec After Heparin Use, Current Use of Oral Anitcoagulant With INR Greater Than 1.7 or PT Greater Than 15 secs: No Evidence of an Intracranial Hemorrhage: No Evidence of Major Acute Infarct With Signs Greater Than 1/3 MCA Territory: No Suspicion of Subarachnoid Hemorrhage on Pretreatment Evaluation Even if CT Head Negative For Hemorrhage: No - Warning to TPA With Conditions Condition: Stroke Serevity Too Mild Additional Condition (For 3-4.5 Hour Window): Prior Stroke and Diabetes - Scribe Statement The provider has reviewed the documentation as recorded by the Maggie Lorenzo Provider Scribe Attestation: All medical record entries made by the Scribe were at my direction and personally dictated by me. I have reviewed the chart and agree that the record accurately reflects my personal performance of the history, physical exam, medical decision making, and the department course for this patient. I have also personally directed, reviewed, and agree with the discharge instructions and disposition. Disposition/Present on Arrival - Present on Arrival Any Indicators Present on Arrival: No History of DVT/PE: No History of Uncontrolled Diabetes: Yes Urinary Catheter: No History of Decub. Ulcer: No History Surgical Site Infection Following: None - Disposition Have Diagnosis and Disposition been Completed?: Yes Diagnosis: Sepsis, SIRS (systemic inflammatory response syndrome), History of CVA ( cerebrovascular accident), UTI (urinary tract infection) Disposition: HOSPITALIZED Disposition Time: 00:29 Patient Plan: Admission Patient Problems: Current Active Problems Problem Status Onset History of CVA (cerebrovascular accident) Acute SIRS (systemic inflammatory response syndrome) Acute Sepsis Acute Urinary tract infection Acute Condition: GOOD
--- NOTE | 2017-10-30 20:33 | CT ---
EXAM: CT Head Without Intravenous Contrast EXAM DATE/TIME: 10/30/2017 8:05 PM CLINICAL HISTORY: 72 years old, female; Signs and symptoms; Weakness, extremity; Left; Additional info: Code stroke TECHNIQUE: Axial computed tomography images of the head/brain without intravenous contrast. All CT scans at this facility use one or more dose reduction techniques, viz.: automated exposure control; ma/kV adjustment per patient size (including targeted exams where dose is matched to indication; i.e. head); or iterative reconstruction technique. Coronal and sagittal reformatted images were created and reviewed. COMPARISON: CT - HEAD W/O (CODE STROKE) 2017-08-07 23:45 FINDINGS: Brain: There is dilatation of sulci gyri and ventricles. There is no midline shift. There is decreased attenuation in periventricular white matter. There is posterior right parietal encephalomalacia. There is old ischemic change in right frontal periventricular white matter. There is mild left cerebellar volume loss, unchanged There are no focal masses. There are no focal hemorrhages. Moore-white differentiation is visualized. Ventricles: See above Bones: Cranial vault is intact. Soft tissues: unremarkable Sinuses: There is mucoperiosteal thickening in the left maxillary sinus. There is partial opacification of ethmoid air cells left greater than right. There is minimal mucosal thickening in the frontal sinuses. Ears and mastoids: Middle ears and mastoids are unremarkable. Orbits: Orbital contents are unremarkable. IMPRESSION: Atrophy and small vessel disease; old right frontal and right parietal infarcts, no bleed; sinus disease If there is suspicion for new acute infarct, MRI advised
[2017-10-30 20:55] LABS: BASO # 0.02 K/mm3 (0.0-2.0); BASO % 0.2 % (0.0-3.0); EOS # 0.2 (0.0-0.7); EOS % 1.4 % (1.5-5.0); GRAN # 7.33 (1.4-6.5); GRAN % 61.8 % (50.0-68.0); LYMPH # 3.1 (1.2-3.4); MEAN CELL VOLUME 79.4 fl (80.0-105.0); MEAN CORPUSCULAR HEMOGLOBIN 25.4 pg (25.0-35.0); MEAN CORPUSCULAR HGB CONC 31.9 g/dl (31.0-37.0); MEAN PLATELET VOLUME 9.3 fl (7.0-11.0); MONO # 1.3 (0.1-0.6); MONO % 10.6 % (1.0-6.0); RBC 3.94 10^6/uL (3.5-6.1); WHITE BLOOD COUNT 11.9 10^3/ul (4.5-11.0)
[2017-10-30 21:09] LABS: VENOUS BLOOD GAS BASE EXCESS 3.1 mmol/L (0.0-2.0); VENOUS BLOOD GAS PO2 46 mm/Hg (30-55); VENOUS BLOOD PH 7.37 (7.32-7.43)
[2017-10-30 21:11] LABS: INR 2.21 (0.93-1.08); PARTIAL THROMBOPLASTIN TIME 47.1 Seconds (25.1-36.5); PROTHROMBIN TIME 25.6 SECONDS (9.4-12.5)
[2017-10-30 21:52] LABS: ALB/GLOB RATIO 0.9 (1.1-1.8); ALT/SGPT 25 U/L (7-56); AST/SGOT 16 U/L (14-36); BLOOD UREA NITROGEN 36 mg/dL (7-21); CALCIUM 10.1 mg/dL (8.4-10.5); GFR AFRICAN-AMERICAN 38; GFR NON-AFRICAN AMERICAN 32; HDL CHOLESTEROL 28 mg/dL (29-60)
[2017-10-30 22:01] LABS: LDL CHOLESTEROL 60 mg/dL (0-129)
[2017-10-30 22:03] LABS: TROPONIN I < 0.01 ng/mL
[2017-10-30] MEDS ORDERED: cefTRIAXone 1 gm 1 GM/100 ML BAG IV STA (22:05)
[2017-10-30] MEDS ORDERED: Sodium Chloride 0.9% 2,000 ML IV ONE (22:10)
[2017-10-31] MEDS ORDERED: Sodium Chloride 0.9% 1,000 ML IV STA (01:05)
--- NOTE | 2017-10-31 02:02 | PCM.SEPTIC ---
Sepsis Progress Note - Reassessment Type Date of Evaluation: 10/31/17 Time of Evaluation: 02:01 Reassessment Type: Non-invasive reassessment - Non Invasive Reassessment Were the most recent vital sign reviewed: Yes Vital Sign (Latest): Temp Pulse Resp BP Pulse Ox 102.5 F H 80 18 114/70 97 10/30/17 21:40 10/31/17 01:40 10/31/17 01:40 10/31/17 01:40 10/31/17 01:40 Cardiovascular: Yes: Regular Rate, Rhythm, Chest Non Tender. No: Edema, Gallop , JVD, Murmur, Bradycardia, Tachycardia, Ectopy, Friction Rub, Irregularly Irregular, Other Respiratory: Yes: Normal Breath Sounds. No: Decreased Breath Sounds, Accessory Muscle Use, Crackles, Rales, Rhonchi, Stridor, Wheezing, Respiratory Distress, Plerual Rub, Other Capillary Refill: Normal (Less than 2 sec) Pulses: Normal Radial, Normal Dorsalis Pedis, Normal Posterior Tibialis Skin: Normal Color, Warm, Dry
[2017-10-31 02:15] LABS: URINE APPEARANCE CLOUDY (CLEAR); URINE BILIRUBIN NEGATIVE (NEGATIVE); URINE BLOOD LARGE (NEGATIVE); URINE COLOR RED (YELLOW); URINE GLUCOSE (UA) NEGATIVE (NEGATIVE); URINE LEUKOCYTE ESTERASE MODERATE Leu/uL (NEGATIVE); URINE NITRATE POSITIVE (NEGATIVE); URINE PROTEIN 100 mg/dL (<30 mg/dL); URINE UROBILINOGEN 0.2 E.U./dL (<1 E.U./dL)
[2017-10-31 02:27] LABS: URINE RBC 15 - 20 /hpf (0-2); URINE WBC 25 - 30 /hpf (0-6)
[2017-10-31 02:28] LABS: URINE BACTERIA MOD (NEG)
--- NOTE | 2017-10-31 09:38 | RAD ---
PROCEDURE: CHEST RADIOGRAPH, 1 VIEW HISTORY: weakness COMPARISON: 08/07/2017 FINDINGS: LUNGS: Clear. PLEURA: No pneumothorax or pleural fluid seen. CARDIOVASCULAR: Normal. OSSEOUS STRUCTURES: No significant abnormalities. VISUALIZED UPPER ABDOMEN: Normal. OTHER FINDINGS: None. IMPRESSION: No active disease.
[2017-10-31] MEDS: Pantoprazole 40 mg EC Tab PO SCH (10:05)
[2017-10-31] MEDS: cefTRIAXone 1 gm 1 GM/100 ML BAG IVPB SCH (10:05)
--- NOTE | 2017-10-31 10:44 | CP.PCM.CON ---
History of Present Illness - History of Present Illness History of Present Illness: 72 year old female with PMH of DM, multiple myeloma, history of CVA with residual left sided weakness was brought in by her daughter because she noted that the patient is having worsening left sided weakness and dysarthria. Patient is not confused and is awake and alert, and oriented to 3 spheres. She is having some nasal congestion but no sore throat, no dry cough, no muscle aches. She is also having increased urinary frequency, no suprapubic pain, no flank pain. In the ED, she is noted to have a fever of 102.5 F and Infectious diseases consult is requested to further evaluate and manage. Review of Systems - Review of Systems All systems: reviewed and no additional remarkable complaints except (as per HPI ) Past Patient History - Infectious Disease Hx of Infectious Diseases: None - Tetanus Immunizations Tetanus Immunization: Unknown - Past Medical History & Family History Past Medical History?: Yes - Past Social History Smoking Status: Never Smoked - CARDIAC Hx Hypertension: Yes - PULMONARY Hx Respiratory Disorders: No - NEUROLOGICAL HX Cerebrovascular Accident: Yes (with expressive aphasia) - HEENT Hx HEENT Problems: No - RENAL Hx Chronic Kidney Disease: No - ENDOCRINE/METABOLIC Hx Diabetes Mellitus Type 2: Yes - HEMATOLOGICAL/ONCOLOGICAL Hx Blood Disorders: No Hx Cancer: Yes (multiple myeloma in remission) Other/Comment: stem cell transplant 2011 - INTEGUMENTARY Hx Dermatological Problems: No - MUSCULOSKELETAL/RHEUMATOLOGICAL Hx Falls: Yes (past) - GASTROINTESTINAL Hx Gastroesophageal Reflux: Yes - GENITOURINARY/GYNECOLOGICAL Hx Genitourinary Disorders: No - PSYCHIATRIC Hx Psychophysiologic Disorder: No Hx Substance Use: No - SURGICAL HISTORY Other/Comment: stem cell transplant 2012 - ANESTHESIA Hx Anesthesia: Yes Hx Anesthesia Reactions: No Hx Malignant Hyperthermia: No Meds Allergies/Adverse Reactions: Allergies Allergy/AdvReac Type Severity Reaction Status Date / Time No Known Allergies Allergy Verified 10/19/17 01:16 - Medications Medications: Current Medications Sodium Chloride (Sodium Chloride 0.9%) 1,000 mls @ 100 mls/hr IV .Q10H STA Stop: 10/31/17 11:04 Last Admin: 10/31/17 01:10 Dose: 100 mls/hr Physical Exam - Constitutional Appears: Non-toxic, No Acute Distress, Chronically Ill - Head Exam Head Exam: NORMAL INSPECTION - ENT Exam ENT Exam: Mucous Membranes Moist - Neck Exam Neck exam: Negative for: Meningismus - Respiratory Exam Respiratory Exam: Decreased Breath Sounds. absent: Rales - Cardiovascular Exam Cardiovascular Exam: +S1, +S2 - GI/Abdominal Exam GI & Abdominal Exam: Soft. absent: Tenderness - Extremities Exam Additional comments: left sided weakness Results - Vital Signs Recent Vital Signs: Last Vital Signs Temp 98.3 F 10/31/17 04:30 Pulse 98 H 10/31/17 05:30 Resp 20 10/31/17 05:30 BP 178/90 H 10/31/17 05:30 Pulse Ox 100 10/31/17 05:30 - Labs Result Diagrams: 10/30/17 20:45 10/30/17 21:37 Labs: Laboratory Results - last 24 hr 10/31/17 01:30 Urine Color Red Urine Appearance Cloudy Urine pH 6.0 Ur Specific [place] 1.020 Urine Protein 100 H Urine Glucose (UA) Negative Urine Ketones Negative Urine Blood Large H Urine Nitrate Positive H Urine Bilirubin Negative Urine Urobilinogen 0.2 Ur Leukocyte Esterase Moderate H Urine RBC 15 - 20 Urine WBC 25 - 30 Ur Epithelial Cells 1 - 3 Urine Bacteria Mod Assessment & Plan - Assessment and Plan (Free Text) Plan: Assessment systemic inflammatory response syndrome, R/O sepsis from UTI as well upper respiratory tract infection DM multiple myeloma history of CVA with residual left sided weakness Plan Started patient on Rocephin pending blood, urine cx, PCT; reviewed CXR which did not show infiltrates rapid Influenza test is negative will monitor clinically
--- NOTE | 2017-10-31 11:13 | CP.PCM.CON ---
History of Present Illness - History of Present Illness History of Present Illness: 72 yr old woman with a history of prior ischemic events, residual left arm weakness and contracture, presented with new onset and worsening weaknesss and dysarthria. She has a history of DM, MM, no history of afib, who was brought in by daughter, who says she had some worsening aphasia, and weakness. The patient receives speech and physical therapy since stroke. In addition, she has a fever, is septic, with renal insufficiency, with suprapubic catheter. Review of Systems - Neurological Neurological: Memory Loss, Paresthesias, Weakness Past Patient History - Infectious Disease Hx of Infectious Diseases: None - Tetanus Immunizations Tetanus Immunization: Unknown - Past Medical History & Family History Past Medical History?: Yes - Past Social History Smoking Status: Never Smoked - CARDIAC Hx Hypertension: Yes - PULMONARY Hx Respiratory Disorders: No - NEUROLOGICAL HX Cerebrovascular Accident: Yes (with expressive aphasia) - HEENT Hx HEENT Problems: No - RENAL Hx Chronic Kidney Disease: No - ENDOCRINE/METABOLIC Hx Diabetes Mellitus Type 2: Yes - HEMATOLOGICAL/ONCOLOGICAL Hx Blood Disorders: No Hx Cancer: Yes (multiple myeloma in remission) Other/Comment: stem cell transplant 2012 - INTEGUMENTARY Hx Dermatological Problems: No - MUSCULOSKELETAL/RHEUMATOLOGICAL Hx Falls: Yes (past) - GASTROINTESTINAL Hx Gastroesophageal Reflux: Yes - GENITOURINARY/GYNECOLOGICAL Hx Genitourinary Disorders: No - PSYCHIATRIC Hx Psychophysiologic Disorder: No Hx Substance Use: No - SURGICAL HISTORY Other/Comment: stem cell transplant 2012 - ANESTHESIA Hx Anesthesia: Yes Hx Anesthesia Reactions: No Hx Malignant Hyperthermia: No Meds Allergies/Adverse Reactions: Allergies Allergy/AdvReac Type Severity Reaction Status Date / Time No Known Allergies Allergy Verified 10/19/17 01:16 - Medications Medications: Current Medications Atorvastatin Calcium (Lipitor) 20 mg PO DAILY [facility] Last Admin: 10/31/17 10:03 Dose: 20 mg Sodium Chloride (Sodium Chloride 0.9%) 1,000 mls @ 100 mls/hr IV .Q10H STA Stop: 10/31/17 11:04 Last Admin: 10/31/17 01:10 Dose: 100 mls/hr Ceftriaxone Sodium (Rocephin 1 Gram Ivpb) 1 gm in 100 mls @ 100 mls/hr IVPB DAILY [facility] PRN Reason: Protocol Last Admin: 10/31/17 10:05 Dose: 100 mls/hr Levetiracetam (Keppra) 500 mg PO BID [facility] Last Admin: 10/31/17 10:04 Dose: 500 mg Lisinopril (Zestril) 20 mg PO DAILY [facility] Last Admin: 10/31/17 10:04 Dose: 20 mg Metoprolol Tartrate (Lopressor) 25 mg PO BRKDIN [facility] Pantoprazole Sodium (Protonix Ec Tab) 40 mg PO DAILY [facility] Last Admin: 10/31/17 10:05 Dose: 40 mg Rivaroxaban (Xarelto) 20 mg PO DAILY [facility] PRN Reason: Protocol Last Admin: 10/31/17 10:04 Dose: 20 mg Sennosides (Senokot Tab) 8.6 mg PO DAILY [facility] Last Admin: 10/31/17 10:05 Dose: 8.6 mg Physical Exam - Constitutional Appears: No Acute Distress - Head Exam Head Exam: ATRAUMATIC - Eye Exam Eye Exam: EOMI - Neck Exam Neck exam: Positive for: Full Rom - Neurological Exam Neurological exam: Motor Sensory Deficit - Expanded Neurological Exam Expanded Patient oriented to: person, place Speech: Expressive Aphasia Cranial nerves: EOM's Intact: Normal, Facial Sensation: Normal, Gag Reflex: Normal Ataxia: No Cerebellar Function: Finger to Nose: Abnormal Left, Heel to Diaz: Abnormal Left Upper motor neuron: Babinski Sign: Normal, Pronator Drift: Abnormal Left, Sensory Extinction: Abnormal Left Sensory exam: Lower Extremity 2 Point Discrimination: Abnormal Left, Lower Extremity Light Touch: Abnormal Left, Lower Extremity Pin Prick: Abnormal Left, Lower Extremity Temperature: Abnormal Left, Upper Extremity 2 Point Discrimination: Abnormal Left, Upper Extremity Light Touch: Abnormal Left, Upper Extremity Pin Prick: Abnormal Left, Upper Extremity Temperature: Abnormal Left Neuro motor strength exam: Left Upper Extremity: 3, Left Lower Extremity: 5, Right Lower Extremity: 5 DTR: Achilles Tendon Left: 2+, Achilles Tendon Right: 2+, Bicep Left: 2+, Bicep Right: 2+, Brachioradialis Left: 2+, Brachioradialis Right: 2+, Patellar Left: 2 +, Patellar Right: 2+, Tricep Left: 2+, Tricep Right: 2+ Results - Vital Signs Recent Vital Signs: Last Vital Signs Temp 98.3 F 10/31/17 04:30 Pulse 98 H 10/31/17 10:04 Resp 20 10/31/17 05:30 BP 167/78 H 10/31/17 10:04 Pulse Ox 100 10/31/17 05:30 - Labs Result Diagrams: 10/30/17 20:45 10/30/17 21:37 Labs: Laboratory Results - last 24 hr 10/31/17 10/31/17 01:30 07:36 Urine Color Red Urine Appearance Cloudy Urine pH 6.0 Ur Specific Vian 1.020 Urine Protein 100 H Urine Glucose (UA) Negative Urine Ketones Negative Urine Blood Large H Urine Nitrate Positive H Urine Bilirubin Negative Urine Urobilinogen 0.2 Ur Leukocyte Esterase Moderate H Urine RBC 15 - 20 Urine WBC 25 - 30 Ur Epithelial Cells 1 - 3 Urine Bacteria Mod Influenza Typ A,B (EIA) Negative for flu a/b - Imaging and Cardiology CT scan - head Status: Image reviewed by me, Report reviewed by me Assessment & Plan (1) History of CVA (cerebrovascular accident) Status: Acute - Assessment and Plan (Free Text) Assessment: 72 yr old woman with differential of either new onset Rt.Mca small ischemic event, or recrudescence of old MCA symptoms. Initial CT scan was not helpful, and etiology is not clear although atherosclerosis is imminent. Recommend aspirin, and stroke workup to evaluate. patient was not a TPA candidate as her aphasia and worsening weakness resolved. Plan: Further consult and follow up by . 1. MRI Brain stroke diffusion protocol 2. ECHo 3. Carotid Dopplers 4. Aspirin 325 mg po now 5. IV fluids normal saline 100 ccs/hour 6. DVT prophylaxix 7. Dysphagia evaluation 8. Physical and speech therapy
--- NOTE | 2017-10-31 12:25 | CARD ---
APPROVED REPORT EKG Measurement Heart [id number] <Conclusion> Normal sinus rhythm Normal ECG
--- NOTE | 2017-10-31 17:09 | MRI ---
PROCEDURE: MRI BRAIN WITHOUT CONTRAST HISTORY: stat cva COMPARISON: Noncontrast head CT from 10/30/2017 TECHNIQUE: Multiplanar, multisequence MR images of the brain were obtained without intravenous contrast enhancement. FINDINGS: HEMORRHAGE: None DWI: There is a tiny focus of acute infarction in the right high parietal cortex. BRAIN PARENCHYMA: There is an old infarction in the right frontal lobe. There is cystic encephalomalacia and cortical laminar necrosis in the right posterior parietal lobe. There are moderate chronic microangiopathic changes. There is no mass, mass effect or abnormal extra-axial fluid collection. The midline sagittal structures are normal. VENTRICLES: There is mild age-related global parenchymal volume loss and proportionate enlargement of the ventricles and cortical sulci. . CRANIUM: There is normal bone marrow signal pattern. ORBITS: Grossly unremarkable. PARANASAL SINUSES/MASTOIDS: There is moderate mucosal thickening in the paranasal sinuses. The mastoid air cells are predominantly clear. VASCULAR SYSTEM: There are normal signal voids in the larger intracranial arteries. OTHER FINDINGS: None. IMPRESSION: 1. Tiny focus of acute infarction in the right high parietal cortex. 2. Old infarction in the right frontal lobe. 3. Cystic encephalomalacia and cortical laminar necrosis in the right parietal lobe. 4. Moderate chronic microangiopathic changes and mild age-related global parenchymal volume loss. Attempts to reach the floor were not successful on 10/31/2017 at 5:07 p.m.
--- NOTE | 2017-10-31 18:29 | CON ---
DATE: 10/31/2017 NEUROLOGY CONSULTATION CHIEF COMPLAINT: Worsening left arm weakness. 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 She was receiving speech and physical therapy since her stroke. She came in with fever and has some renal insufficiency with suprapubic catheter as well as septic for underlying urinary tract infection with elevated leukocyte esterase and nitrites in the urinary tract with elevated WBC. Her A1c is 7.3. She had an MRI of the brain that showed old right frontoparietal infarcts, and tiny acute Right high parietal lobe infarct. Currently, she is mildly delirious but following simple commands. 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 SOCIAL HISTORY: No illicit drug use, smoking, or EtOH abuse. FAMILY HISTORY: Noncontributory. REVIEW OF SYSTEMS: A 14-point review of systems is negative except as per the HPI. ALLERGIES: NO KNOWN DRUG ALLERGIES. MEDICATIONS: Reviewed by nurse per reconciliation sheet. PHYSICAL EXAMINATION: VITAL SIGNS: Temperature afebrile, pulse rate 72, blood pressure 166/84, respiratory rate 18, and oxygen saturation 100% on room air. GENERAL: The patient is sitting up in bed, in no acute distress. HEENT: Atraumatic and normocephalic. PERRLA. Extraocular muscles intact. NECK: Supple. No JVD. No adenopathy noted. LUNGS: Clear to auscultation. No adventitious sounds. HEART: S1 and S2. Normal rate and rhythm. No murmurs, rubs or gallops. ABDOMEN: Soft, nontender, and nondistended. Bowel sounds are present. EXTREMITIES: No clubbing. No cyanosis. Peripheral pulses are 2+ felt bilaterally. NEUROLOGIC: The patient is alert and oriented to person and place. Recall in five minutes is 0/3. Poor attention span and slow thought process. Cranial nerves II through XII are intact. Motor exam, moves all extremities equally. Has a spastic left upper extremity contracted weakness from prior CVA and mild left lower extremity weakness. Sensory exam: Decreased light touch and pinprick up to the calves bilaterally. Decreased vibration to the toes. DTRs are 2+ throughout and one at both knees and ankles. Coordination: Pswyux-[id number]-jcle on the right is intact, but difficult on the left due to left spastic hemiplegia in the left upper extremity. LABORATORY DATA: UA is positive for nitrites and leucocyte esterase is moderate. Sodium is 141, potassium 4.2, chloride 102, carbon dioxide 27, BUN of 36, creatinine 1.6, and random glucose of 163. A1c of 7.3. ASSESSMENT AND PLAN: This is a 72-year-old woman with past medical history of type 2 diabetes mellitus, hypertension, history of right frontoparietal old infarcts with spastic left upper extremity weakness, who presented with generalized weakness, new onset aphasia and dysarthria, and found to have urinary tract infection which is positive with leukocyte esterase and nitrites. At this time, I feel like her symptoms could be secondary to recrudescence of her old right middle cerebral artery territory symptoms from prior underlying urinary tract infection. She had an MRI of the brain that showed old right frontoparietal infarcts, and tiny acute Right high parietal lobe infarct. Currently, she is mildly which is corresponded to her residual weakness at this time associated with upper extremity. RECOMMENDATIONS: At this time recommend, 1. Monitor electrolytes and correct accordingly. 2. She has elevated BUN and creatinine, give her IV fluids and normal saline at 100 mL per hour. 3. Carotid Doppler. 4. Correct the underlying urinary tract infection. 5. Aspirin 81 and Lipitor 20 mg for stroke prevention and continue with Xarelto given her history of atrial fibrillation and for stroke prevention. 7. Discontinue Keppra upon discharge since it is unlikely a seizure and continue current present medical management. Thank you for this consult. Kevin Ross MD [facility]
[2017-10-31 18:51] VITALS: BMI 28.0
[2017-10-31] MEDS ORDERED: Pneumococcal 23-Valent Vaccine IM ONE (18:51)
[2017-10-31] MEDS ORDERED: Influenza Vaccine 60 mcg/0.5 mL SYR (4YR UP) IM ONE (18:51)
--- NOTE | 2017-10-31 20:02 | HP ---
HISTORY OF PRESENT ILLNESS: A 72-year-old black female with known history of multiple myeloma in remission, status post bone marrow transplant at [facility]. 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 The patient has been to hospital with increased weakness, fever to 102, shaking chills, and back pain. Admitted to the hospital with pyuria, bacteruria consistent with possible pyelonephritis. There was no CVA tenderness. PHYSICAL EXAMINATION: GENERAL: Shows a well-developed, slightly obese, black female, in minimal distress. VITAL SIGNS: Shows a temperature as high as 102 and blood pressure 178/90. HEENT: Essentially within normal limits. CHEST: Clear to auscultation and percussion. ABDOMEN: Benign. There is no CVA tenderness no palpitation. EXTREMITIES: No cyanosis, clubbing or edema. NEUROLOGIC: Essentially grossly intact except for sub hemiparesis left upper and left lower extremity and dysarthria. LABORATORY DATA: White count 11,900 with left shift. BUN and creatinine are elevated 36 and 1.6, which have been elevated in the past. Total protein is 8.7. The patient does have remote history of multiple myeloma. IMPRESSION: A 72-year-old black female being admitting to the hospital with possible pyelonephritis, elevated fever, pyuria, bacteruria, history of myeloma, history of atrial fibrillation on anticoagulation, history of cerebrovascular accident and history of renal insufficiency in the past. Reji Mays MD
[2017-11-01] MEDS: Pantoprazole 40 mg EC Tab PO SCH (09:11)
[2017-11-01] MEDS: cefTRIAXone 1 gm 1 GM/100 ML BAG IVPB SCH (09:11)
[2017-11-01 10:14] LABS: ALBUMIN (PEP) 3.3 g/dL (3.8-4.8); ALPHA-1-GLOBULIN (PEP) 0.4 g/dL (0.2-0.3)
--- NOTE | 2017-11-01 15:03 | CP.PCM.PN ---
Subjective - Date & Time of Evaluation Date of Evaluation: 11/01/17 Time of Evaluation: 10:50 - Subjective Subjective: Patient still having fevers overnight, not in distress, less frequency of urination. Objective - Vital Signs/Intake and Output Vital Signs (last 24 hours): Temp Pulse Resp BP Pulse Ox 99.3 F 97 H 20 153/83 H 98 11/01/17 08:55 11/01/17 08:55 11/01/17 08:55 11/01/17 08:55 11/01/17 08:55 Intake and Output: 11/01/17 11/01/17 06:59 18:59 Intake Total 0 0 Balance 0 0 - Medications Medications: Current Medications Acetaminophen (Tylenol 650 Mg Supp) 650 mg RC Q6H PRN PRN Reason: Fever >100.4 F Last Admin: 11/01/17 04:12 Dose: 650 mg Aspirin (Aspirin Chewable) 81 mg PO DAILY [facility] Atorvastatin Calcium (Lipitor) 20 mg PO DAILY [facility] Last Admin: 10/31/17 10:03 Dose: 20 mg Ceftriaxone Sodium (Rocephin 1 Gram Ivpb) 1 gm in 100 mls @ 100 mls/hr IVPB DAILY [facility] PRN Reason: Protocol Last Admin: 10/31/17 10:05 Dose: 100 mls/hr Levetiracetam (Keppra) 500 mg PO BID [facility] Last Admin: 10/31/17 17:17 Dose: 500 mg Lisinopril (Zestril) 20 mg PO DAILY [facility] Last Admin: 10/31/17 10:04 Dose: 20 mg Metoprolol Tartrate (Lopressor) 25 mg PO BRKDIN [facility] Last Admin: 10/31/17 17:16 Dose: 25 mg Pantoprazole Sodium (Protonix Ec Tab) 40 mg PO DAILY [facility] Last Admin: 10/31/17 10:05 Dose: 40 mg Rivaroxaban (Xarelto) 20 mg PO DAILY [facility] PRN Reason: Protocol Last Admin: 10/31/17 10:04 Dose: 20 mg Sennosides (Senokot Tab) 8.6 mg PO DAILY [facility] Last Admin: 10/31/17 10:05 Dose: 8.6 mg - Labs Labs: PT 25.6 SECONDS (9.4-12.5) H 10/30/17 20:45 INR 2.21 (0.93-1.08) H 10/30/17 20:45 APTT 47.1 Seconds (25.1-36.5) H 10/30/17 20:45 - Constitutional Appears: Non-toxic - Head Exam Head Exam: NORMAL INSPECTION - ENT Exam ENT Exam: Mucous Membranes Moist - Neck Exam Neck Exam: absent: Meningismus - Respiratory Exam Respiratory Exam: Decreased Breath Sounds - Cardiovascular Exam Cardiovascular Exam: +S1, +S2 - GI/Abdominal Exam GI & Abdominal Exam: Soft. absent: Tenderness Assessment and Plan - Assessment and Plan (Free Text) Plan: Assessment systemic inflammatory response syndrome consider due to new and acute left parietal CVA, R/O sepsis from UTI as well upper respiratory tract infection DM multiple myeloma history of CVA with residual left sided weakness Plan continue Rocephin day 2; blood cx are negative x 1 day; follow up urine cx; reviewed CXR which did not show infiltrates rapid Influenza test is negative will continue to monitor clinically
--- NOTE | 2017-11-01 16:55 | CP.PCM.PN ---
Subjective - Date & Time of Evaluation Date of Evaluation: 11/01/17 Time of Evaluation: 11:00 - Subjective Subjective: DATE: 11/01/2017 NEUROLOGY FOLLOW UP CHIEF COMPLAINT: Worsening left arm weakness. SUBJECVTIVE: Her A1c is 7.3. She had an MRI of the brain that showed old right frontoparietal infarcts, and tiny acute Right high parietal lobe infarct. She is less delirious today. 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 SOCIAL HISTORY: No illicit drug use, smoking, or EtOH abuse. FAMILY HISTORY: Noncontributory. REVIEW OF SYSTEMS: A 14-point review of systems is negative except as per the HPI. ALLERGIES: NO KNOWN DRUG ALLERGIES. MEDICATIONS: Reviewed by nurse per reconciliation sheet. PHYSICAL EXAMINATION: VITAL SIGNS: reviewed GENERAL: The patient is sitting up in bed, in no acute distress. HEENT: Atraumatic and normocephalic. PERRLA. Extraocular muscles intact. NECK: Supple. No JVD. No adenopathy noted. LUNGS: Clear to auscultation. No adventitious sounds. HEART: S1 and S2. Normal rate and rhythm. No murmurs, rubs or gallops. ABDOMEN: Soft, nontender, and nondistended. Bowel sounds are present. EXTREMITIES: No clubbing. No cyanosis. Peripheral pulses are 2+ felt bilaterally. NEUROLOGIC: The patient is alert and oriented to person and place. Recall in five minutes is 0/3. Poor attention span and slow thought process. Cranial nerves II through XII are intact. Motor exam, moves all extremities equally. Has a spastic left upper extremity contracted weakness from prior CVA and mild left lower extremity weakness. Sensory exam: Decreased light touch and pinprick up to the calves bilaterally. Decreased vibration to the toes. DTRs are 2+ throughout and one at both knees and ankles. Coordination: [id number] on the right is intact, but difficult on the left due to left spastic hemiplegia in the left upper extremity. LABORATORY DATA: Reviewed. ASSESSMENT AND PLAN: This is a 72-year-old woman with past medical history of type 2 diabetes mellitus, hypertension, history of right frontoparietal old infarcts with spastic left upper extremity weakness, who presented with generalized weakness, new onset aphasia and dysarthria, and found to have urinary tract infection which is positive with leukocyte esterase and nitrites. At this time, I feel like her symptoms could be secondary to recrudescence of her old right middle cerebral artery territory symptoms from prior underlying urinary tract infection. She had an MRI of the brain that showed old right frontoparietal infarcts, and tiny acute Right high parietal lobe infarct. Currently, she is mildly which is corresponded to her residual weakness at this time associated with upper extremity. RECOMMENDATIONS: At this time recommend, 1. Monitor electrolytes and correct accordingly. 2. She has elevated BUN and creatinine, give her IV fluids and normal saline at 100 mL per hour. Delirium precautions./ 3. Correct the underlying urinary tract infection. 4. Aspirin 81 and Lipitor 20 mg for stroke prevention and continue with Xarelto given her history of atrial fibrillation and for stroke prevention. 5. Discontinue Keppra upon discharge since it is unlikely a seizure and continue current present medical management. Thank you Kevin Ross MD Objective - Vital Signs/Intake and Output Vital Signs (last 24 hours): Temp Pulse Resp BP Pulse Ox 99.3 F 97 H 20 153/83 H 98 11/01/17 08:55 11/01/17 08:55 11/01/17 08:55 11/01/17 09:12 11/01/17 08:55 Intake and Output: 11/01/17 11/01/17 06:59 18:59 Intake Total 0 420 Balance 0 420 - Medications Medications: Current Medications Acetaminophen (Tylenol 650 Mg Supp) 650 mg RC Q6H PRN PRN Reason: Fever >100.4 F Last Admin: 11/01/17 04:12 Dose: 650 mg Aspirin (Aspirin Chewable) 81 mg PO DAILY [facility] Last Admin: 11/01/17 09:10 Dose: 81 mg Atorvastatin Calcium (Lipitor) 20 mg PO DAILY [facility] Last Admin: 11/01/17 09:11 Dose: 20 mg Ceftriaxone Sodium (Rocephin 1 Gram Ivpb) 1 gm in 100 mls @ 100 mls/hr IVPB DAILY [facility] PRN Reason: Protocol Last Admin: 11/01/17 09:11 Dose: 100 mls/hr Levetiracetam (Keppra) 500 mg PO BID [facility] Last Admin: 11/01/17 09:10 Dose: 500 mg Lisinopril (Zestril) 20 mg PO DAILY [facility] Last Admin: 11/01/17 09:12 Dose: 20 mg Metoprolol Tartrate (Lopressor) 25 mg PO BRKDIN [facility] Last Admin: 11/01/17 08:11 Dose: 25 mg Pantoprazole Sodium (Protonix Ec Tab) 40 mg PO DAILY [facility] Last Admin: 11/01/17 09:11 Dose: 40 mg Rivaroxaban (Xarelto) 20 mg PO DAILY [facility] PRN Reason: Protocol Last Admin: 11/01/17 09:12 Dose: 20 mg Sennosides (Senokot Tab) 8.6 mg PO DAILY [facility] Last Admin: 11/01/17 09:12 Dose: 8.6 mg - Labs Labs: PT 25.6 SECONDS (9.4-12.5) H 10/30/17 20:45 INR 2.21 (0.93-1.08) H 10/30/17 20:45 APTT 47.1 Seconds (25.1-36.5) H 10/30/17 20:45
--- NOTE | 2017-11-01 19:01 | PN ---
DATE: SUBJECTIVE: A 72-year-old black female admitted to the hospital with elevated fever, back pain, pyuria, and bacteriuria consistent with pyelonephritis, because she has had history of CVA in the past, she is on Eliquis for paroxysmal atrial fibrillation and multiple myeloma. The patient had an MRI of the brain which showed chronic changes. No acute changes except for an extremely tiny focus in the parietal cortex. The patient is more awake and alert, speaking more, and tolerating her diet well. PHYSICAL EXAMINATION: VITAL SIGNS: Stable. Temperature is 99.3 down from 102, blood pressure 153/83. LABORATORY DATA: White count of 11.9. Microbiology shows no growth in blood. Gram-negative rods in the urine, greater than 100,000. ID, sensitivities are pending. The patient is on IV antibiotics. She was seen in consultation by Dr. Shrestha for Infectious Disease and Dr. Ross for Neurology. Physical examination is unchanged. The patient is seen at the bedside with her daughter, tolerating her breakfast well and more conversant. No changes in the left upper and left lower extremity weakness. Reji Mays MD
[2017-11-01] MEDS ORDERED: Albuterol-Ipratrop 3 mg / 0.5 (3 ml) UD IH ONE (20:37)
--- NOTE | 2017-11-02 11:46 | CP.PCM.PN ---
Subjective - Date & Time of Evaluation Date of Evaluation: 11/02/17 Time of Evaluation: 10:30 - Subjective Subjective: Patient still having intermittent fevers and is unable to cough properly - this morning, mucus plug was suctioned from her throat. Decreased urinary frequency. Objective - Vital Signs/Intake and Output Vital Signs (last 24 hours): Temp Pulse Resp BP Pulse Ox 99.7 F H 104 H 22 148/88 97 11/02/17 03:10 11/02/17 08:44 11/01/17 16:00 11/02/17 08:44 11/01/17 16:00 Intake and Output: 11/02/17 11/02/17 06:59 18:59 Intake Total 0 Balance 0 - Medications Medications: Current Medications Acetaminophen (Tylenol 650 Mg Supp) 650 mg RC Q6H PRN PRN Reason: Fever >100.4 F Last Admin: 11/01/17 19:03 Dose: 650 mg Acetylcysteine (Acetylcysteine 20%) 3 ml PO BID COUNT [facility]CLUDES [facility] Aspirin (Aspirin Chewable) 81 mg PO DAILY [facility] Last Admin: 11/01/17 09:10 Dose: 81 mg Atorvastatin Calcium (Lipitor) 20 mg PO DAILY [facility] Last Admin: 11/01/17 09:11 Dose: 20 mg Guaifenesin (Mucinex La) 600 mg PO BID COUNT [facility] Ceftriaxone Sodium (Rocephin 1 Gram Ivpb) 1 gm in 100 mls @ 100 mls/hr IVPB DAILY COUNT [facility] PRN Reason: Protocol Last Admin: 11/01/17 09:11 Dose: 100 mls/hr Levetiracetam (Keppra) 500 mg PO BID COUNT [facility] Last Admin: 11/01/17 17:25 Dose: 500 mg Lisinopril (Zestril) 20 mg PO DAILY [facility] Last Admin: 11/01/17 09:12 Dose: 20 mg Metoprolol Tartrate (Lopressor) 25 mg PO BRKDIN COUNT [facility]CLUDES [facility] Last Admin: 11/02/17 08:44 Dose: 25 mg Pantoprazole Sodium (Protonix Ec Tab) 40 mg PO DAILY [facility] Last Admin: 11/01/17 09:11 Dose: 40 mg Rivaroxaban (Xarelto) 20 mg PO DAILY COUNT [facility] PRN Reason: Protocol Last Admin: 11/01/17 09:12 Dose: 20 mg Sennosides (Senokot Tab) 8.6 mg PO DAILY COUNT [facility]CLUD[facility] Last Admin: 11/01/17 09:12 Dose: 8.6 mg - Labs Labs: PT 25.6 SECONDS (9.4-12.5) H 10/30/17 20:45 INR 2.21 (0.93-1.08) H 10/30/17 20:45 APTT 47.1 Seconds (25.1-36.5) H 10/30/17 20:45 - Constitutional Appears: Non-toxic, No Acute Distress, Chronically Ill - Head Exam Head Exam: NORMAL INSPECTION - Eye Exam Eye Exam: Normal appearance - ENT Exam ENT Exam: Mucous Membranes Moist - Neck Exam Neck Exam: absent: Lymphadenopathy, Meningismus - Respiratory Exam Respiratory Exam: Decreased Breath Sounds - Cardiovascular Exam Cardiovascular Exam: +S1, +S2 - GI/Abdominal Exam GI & Abdominal Exam: Soft. absent: Tenderness Assessment and Plan - Assessment and Plan (Free Text) Plan: Assessment systemic inflammatory response syndrome consider due to new and acute left parietal CVA and sepsis from UTI from E. coli as well lower respiratory tract infection / bronchitis DM multiple myeloma history of CVA with residual left sided weakness Plan continue Rocephin day 3 and Doxycycline; blood cx are negative; reviewed CXR which did not show infiltrates rapid Influenza test is negative will continue to monitor clinically
[2017-11-02] MEDS: Pantoprazole 40 mg EC Tab PO SCH (13:13)
[2017-11-02] MEDS: cefTRIAXone 1 gm 1 GM/100 ML BAG IVPB SCH (13:14)
[2017-11-02] MEDS: guaiFENesin 600 mg ER Tab PO SCH ×2 (13:16→18:03)
[2017-11-02] MEDS: Acetylcysteine 20% Inhal Soln (4ml) PO SCH ×2 (13:18→18:07)
--- NOTE | 2017-11-02 13:52 | RAD ---
HISTORY: COUGH COMPARISON: No prior. TECHNIQUE: Chest PA and lateral FINDINGS: LUNGS: No active pulmonary disease. PLEURA: No significant pleural effusion identified. No pneumothorax apparent. CARDIOVASCULAR: Normal. OSSEOUS STRUCTURES: No significant abnormalities. VISUALIZED UPPER ABDOMEN: Normal. OTHER FINDINGS: None. IMPRESSION: No active disease.
--- NOTE | 2017-11-02 16:45 | CP.PCM.PN ---
Subjective - Date & Time of Evaluation Date of Evaluation: 11/02/17 Time of Evaluation: 16:00 - Subjective Subjective: DATE: 11/02/2017 NEUROLOGY FOLLOW UP CHIEF COMPLAINT: Worsening left arm weakness. SUBJECVTIVE: Her A1c is 7.3. She had an MRI of the brain that showed old right frontoparietal infarcts, and tiny acute Right high parietal lobe infarct. She is doing well today and recommend DEEPTHI. 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 SOCIAL HISTORY: No illicit drug use, smoking, or EtOH abuse. FAMILY HISTORY: Noncontributory. REVIEW OF SYSTEMS: A 14-point review of systems is negative except as per the HPI. ALLERGIES: NO KNOWN DRUG ALLERGIES. MEDICATIONS: Reviewed by nurse per reconciliation sheet. PHYSICAL EXAMINATION: VITAL SIGNS: reviewed GENERAL: The patient is sitting up in bed, in no acute distress. HEENT: Atraumatic and normocephalic. PERRLA. Extraocular muscles intact. NECK: Supple. No JVD. No adenopathy noted. LUNGS: Clear to auscultation. No adventitious sounds. HEART: S1 and S2. Normal rate and rhythm. No murmurs, rubs or gallops. ABDOMEN: Soft, nontender, and nondistended. Bowel sounds are present. EXTREMITIES: No clubbing. No cyanosis. Peripheral pulses are 2+ felt bilaterally. NEUROLOGIC: The patient is alert and oriented to person and place. Recall in five minutes is 0/3. Poor attention span and slow thought process. Cranial nerves II through XII are intact. Motor exam, moves all extremities equally. Has a spastic left upper extremity contracted weakness from prior CVA and mild left lower extremity weakness. Sensory exam: Decreased light touch and pinprick up to the calves bilaterally. Decreased vibration to the toes. DTRs are 2+ throughout and one at both knees and ankles. Coordination: [id number] on the right is intact, but difficult on the left due to left spastic hemiplegia in the left upper extremity. LABORATORY DATA: Reviewed. ASSESSMENT AND PLAN: This is a 72-year-old woman with past medical history of type 2 diabetes mellitus, hypertension, history of right frontoparietal old infarcts with spastic left upper extremity weakness, who presented with generalized weakness, new onset aphasia and dysarthria, and found to have urinary tract infection which is positive with leukocyte esterase and nitrites. At this time, I feel like her symptoms could be secondary to recrudescence of her old right middle cerebral artery territory symptoms from prior underlying urinary tract infection. She had an MRI of the brain that showed old right frontoparietal infarcts, and tiny acute Right high parietal lobe infarct. Currently, she is mildly which is corresponded to her residual weakness at this time associated with upper extremity. RECOMMENDATIONS: At this time recommend, 1. Monitor electrolytes and correct accordingly. 2. She has elevated BUN and creatinine, give her IV fluids and normal saline at 100 mL per hour. Delirium precautions./ 3. Correct the underlying urinary tract infection. 4. Aspirin 81 and Lipitor 20 mg for stroke prevention and continue with Xarelto given her history of atrial fibrillation and for stroke prevention. 5. Continue current present medical management. Thank you Kevin Ross MD Objective - Vital Signs/Intake and Output Vital Signs (last 24 hours): Temp Pulse Resp BP Pulse Ox 99.7 F H 104 H 24 148/88 98 11/02/17 06:00 11/02/17 13:15 11/02/17 06:00 11/02/17 13:15 11/02/17 06:00 Intake and Output: 11/02/17 11/02/17 06:59 18:59 Intake Total 0 360 Balance 0 360 - Medications Medications: Current Medications Acetaminophen (Tylenol 650 Mg Supp) 650 mg RC Q6H PRN PRN Reason: Fever >100.4 F Last Admin: 11/01/17 19:03 Dose: 650 mg Acetylcysteine (Acetylcysteine 20%) 3 ml PO BID [facility] Last Admin: 11/02/17 13:18 Dose: Not Given Aspirin (Aspirin Chewable) 81 mg PO DAILY [facility] Last Admin: 11/02/17 13:16 Dose: 81 mg Atorvastatin Calcium (Lipitor) 20 mg PO DAILY [facility] Last Admin: 11/02/17 13:13 Dose: 20 mg Doxycycline Hyclate (Doryx) 100 mg PO Q12 [facility] PRN Reason: Protocol Last Admin: 11/02/17 13:13 Dose: 100 mg Guaifenesin (Mucinex La) 600 mg PO BID [facility] Last Admin: 11/02/17 13:16 Dose: 600 mg Ceftriaxone Sodium (Rocephin 1 Gram Ivpb) 1 gm in 100 mls @ 100 mls/hr IVPB DAILY [facility] PRN Reason: Protocol Last Admin: 11/02/17 13:14 Dose: 100 mls/hr Levetiracetam (Keppra) 500 mg PO BID [facility] Last Admin: 11/02/17 13:16 Dose: 500 mg Lisinopril (Zestril) 20 mg PO DAILY [facility] Last Admin: 11/02/17 13:15 Dose: 20 mg Metoprolol Tartrate (Lopressor) 25 mg PO BRKDIN [facility] Last Admin: 11/02/17 08:44 Dose: 25 mg Pantoprazole Sodium (Protonix Ec Tab) 40 mg PO DAILY [facility] Last Admin: 11/02/17 13:13 Dose: 40 mg Rivaroxaban (Xarelto) 20 mg PO DAILY [facility] PRN Reason: Protocol Last Admin: 11/02/17 13:14 Dose: 20 mg Sennosides (Senokot Tab) 8.6 mg PO DAILY [facility] Last Admin: 11/02/17 13:14 Dose: 8.6 mg - Labs Labs: PT 25.6 SECONDS (9.4-12.5) H 10/30/17 20:45 INR 2.21 (0.93-1.08) H 10/30/17 20:45 APTT 47.1 Seconds (25.1-36.5) H 10/30/17 20:45
--- NOTE | 2017-11-02 21:16 | PN ---
DATE: SUBJECTIVE: A 72-year-old black female admitted to hospital with fever, was found to have E. coli, urinary tract infection, possible pyelonephritis with nausea, vomiting and fever to 104. PHYSICAL EXAMINATION: VITAL SIGNS: Temperature today is 99.7. CARDIOPULMONARY: Heart examination reveals sinus rhythm. LUNGS: Chest is clear to auscultation.. NEUROLOGIC: The patient is still verbal, but slurred and dysarthric speech. No change in the previous neurologic examination showing left upper and left lower extremity weakness. The patient grew E. coli sensitive to most antibiotics. She is currently on ceftriaxone, but she is sensitive to. The patient does have some 36 and 1.6. ASSESSMENT AND PLAN: History of multiple myeloma. White count of 11,900, hemoglobin is 10. The patient does have an monoclonal spike on her serum protein electrophoresis. She was seen in consultation by Dr. Shrestha. She is on intravenous antibiotics, some physical therapy. She is tolerating a diet well. Reji Mays MD
[2017-11-03] MEDS: cefTRIAXone 1 gm 1 GM/100 ML BAG IVPB SCH (09:42)
[2017-11-03] MEDS: Pantoprazole 40 mg EC Tab PO SCH (09:42)
[2017-11-03] MEDS: guaiFENesin 600 mg ER Tab PO SCH ×2 (09:42→18:18)
--- NOTE | 2017-11-03 12:54 | PN ---
DATE: SUBJECTIVE: A 72-year-old black female, CVA, multiple myeloma, hypertension, admitted to hospital with elevated fever, nausea and vomiting, back pain, found to have E. coli in the urine, sensitive to ceftriaxone. The patient is on ceftriaxone and doxycycline by Dr. Shrestha. She is found to be afebrile today. Vital signs are stable. She is tolerating her diet. She is doing well. PHYSICAL EXAMINATION: Temperature is 97.5, blood pressure 130/84. Vital signs are stable. Plan is to continue physical therapy, occupation therapy, ambulating, and IV antibiotics. The patient will be discharged home if she is afebrile for 48 hours. Reji Mays MD
--- NOTE | 2017-11-03 13:14 | CP.PCM.PN ---
Subjective - Date & Time of Evaluation Date of Evaluation: 11/03/17 Time of Evaluation: 12:25 - Subjective Subjective: DATE: 11/03/2017 NEUROLOGY FOLLOW UP CHIEF COMPLAINT: Worsening left arm weakness. SUBJECVTIVE: Her A1c is 7.3. She had an MRI of the brain that showed old right frontoparietal infarcts, and tiny acute Right high parietal lobe infarct. She is doing well today and recommend DEEPTHI. 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 SOCIAL HISTORY: No illicit drug use, smoking, or EtOH abuse. FAMILY HISTORY: Noncontributory. REVIEW OF SYSTEMS: A 14-point review of systems is negative except as per the HPI. ALLERGIES: NO KNOWN DRUG ALLERGIES. MEDICATIONS: Reviewed by nurse per reconciliation sheet. PHYSICAL EXAMINATION: VITAL SIGNS: reviewed GENERAL: The patient is sitting up in bed, in no acute distress. HEENT: Atraumatic and normocephalic. PERRLA. Extraocular muscles intact. NECK: Supple. No JVD. No adenopathy noted. LUNGS: Clear to auscultation. No adventitious sounds. HEART: S1 and S2. Normal rate and rhythm. No murmurs, rubs or gallops. ABDOMEN: Soft, nontender, and nondistended. Bowel sounds are present. EXTREMITIES: No clubbing. No cyanosis. Peripheral pulses are 2+ felt bilaterally. NEUROLOGIC: The patient is alert and oriented to person and place. Recall in five minutes is 0/3. Poor attention span and slow thought process. Cranial nerves II through XII are intact. Motor exam, moves all extremities equally. Has a spastic left upper extremity contracted weakness from prior CVA and mild left lower extremity weakness. Sensory exam: Decreased light touch and pinprick up to the calves bilaterally. Decreased vibration to the toes. DTRs are 2+ throughout and one at both knees and ankles. Coordination: [id number] on the right is intact, but difficult on the left due to left spastic hemiplegia in the left upper extremity. LABORATORY DATA: Reviewed. ASSESSMENT AND PLAN: This is a 72-year-old woman with past medical history of type 2 diabetes mellitus, hypertension, history of right frontoparietal old infarcts with spastic left upper extremity weakness, who presented with generalized weakness, new onset aphasia and dysarthria, and found to have urinary tract infection which is positive with leukocyte esterase and nitrites. At this time, I feel like her symptoms could be secondary to recrudescence of her old right middle cerebral artery territory symptoms from prior underlying urinary tract infection. She had an MRI of the brain that showed old right frontoparietal infarcts, and tiny acute Right high parietal lobe infarct. Currently, she is mildly which is corresponded to her residual weakness at this time associated with upper extremity. She is doing much better. RECOMMENDATIONS: At this time recommend, 1. Monitor electrolytes and correct accordingly. 2. . Delirium precautions. 3. Correct the underlying urinary tract infection. 4. Aspirin 81 and Lipitor 20 mg for stroke prevention and continue with Xarelto given her history of atrial fibrillation and for stroke prevention. 5. Continue current present medical management. Thank you Kevin Ross MD Objective - Vital Signs/Intake and Output Vital Signs (last 24 hours): Temp Pulse Resp BP Pulse Ox 97.5 F L 70 20 130/84 96 11/03/17 08:30 11/03/17 09:43 11/03/17 08:30 11/03/17 09:43 11/03/17 08:30 Intake and Output: 11/03/17 11/03/17 06:59 18:59 Intake Total 360 Output Total 200 Balance 160 - Medications Medications: Current Medications Acetaminophen (Tylenol 650 Mg Supp) 650 mg RC Q6H PRN PRN Reason: Fever >100.4 F Last Admin: 11/03/17 01:24 Dose: 650 mg Acetylcysteine (Acetylcysteine 20%) 3 ml PO BID COUNT [facility]CLUD[facility] Last Admin: 11/02/17 18:07 Dose: Not Given Aspirin (Aspirin Chewable) 81 mg PO DAILY COUNT [facility]CLUD[facility] Last Admin: 11/03/17 09:41 Dose: 81 mg Atorvastatin Calcium (Lipitor) 20 mg PO DAILY COUNT [facility] Last Admin: 11/03/17 09:41 Dose: 20 mg Doxycycline Hyclate (Doryx) 100 mg PO Q12 [facility] PRN Reason: Protocol Last Admin: 11/03/17 09:41 Dose: 100 mg Guaifenesin (Mucinex La) 600 mg PO BID COUNT [facility] Last Admin: 11/03/17 09:42 Dose: 600 mg Ceftriaxone Sodium (Rocephin 1 Gram Ivpb) 1 gm in 100 mls @ 100 mls/hr IVPB DAILY COUNT [facility] PRN Reason: Protocol Last Admin: 11/03/17 09:42 Dose: 100 mls/hr Levetiracetam (Keppra) 500 mg PO BID [facility] Last Admin: 11/03/17 09:41 Dose: 500 mg Lisinopril (Zestril) 20 mg PO DAILY [facility] Last Admin: 11/03/17 09:43 Dose: 20 mg Metoprolol Tartrate (Lopressor) 25 mg PO BRKDIN COUNT [facility]CLUD[facility] Last Admin: 11/03/17 09:41 Dose: 25 mg Pantoprazole Sodium (Protonix Ec Tab) 40 mg PO DAILY [facility] Last Admin: 11/03/17 09:42 Dose: 40 mg Rivaroxaban (Xarelto) 20 mg PO DAILY [facility] PRN Reason: Protocol Last Admin: 11/03/17 09:43 Dose: 20 mg Sennosides (Senokot Tab) 8.6 mg PO DAILY [facility] Last Admin: 11/03/17 09:43 Dose: 8.6 mg - Labs Labs: PT 25.6 SECONDS (9.4-12.5) H 10/30/17 20:45 INR 2.21 (0.93-1.08) H 10/30/17 20:45 APTT 47.1 Seconds (25.1-36.5) H 10/30/17 20:45
--- NOTE | 2017-11-03 14:05 | PN ---
DATE: 11/03/2017 SUBJECTIVE: The patient seen earlier today. No acute distress. Non toxic. PHYSICAL EXAMINATION: VITAL SIGNS: Temperature is 98, blood pressure is 120/70, respiratory rate of 16. HEENT: Unremarkable. NECK: Supple. LUNGS: Decreased breath sounds. HEART: Normal S1 and S2. ABDOMEN: Soft and nontender. LABORATORY DATA: White of count of 11, 000, hemoglobin of 10. The patient with a procalcitonin of 0.05. A urine culture is positive for E. Coli. The blood cultures are negative, no growth. Review of orders revealed that the patient to be on p.o. doxycycline and IV ceftriaxone. ASSESSMENT AND PLAN: A 72-year-old female with systemic inflammatory response syndrome and had a new acute left partial cerebrovascular accident and sepsis with urinary tract infection with Escherichia coli and bronchitis, lower respiratory tract infection, multiple myeloma, diabetes mellitus, and on day #4 of doxycycline and ceftriaxone. Cultures negative. The chest x-ray did not show any infiltrate and the rapid influenza was negative and the patient's procalcitonin was 0.05. Will follow closely with you. Michael Harris MD
[2017-11-03] MEDS: Acetylcysteine 20% Inhal Soln (4ml) PO SCH (23:57)
[2017-11-04] MEDS: Cefpodoxime (Vantin) 100 mg Tab PO SCH ×2 (10:20→21:23)
[2017-11-04] MEDS: guaiFENesin 600 mg ER Tab PO SCH ×2 (10:20→18:43)
[2017-11-04] MEDS: Pantoprazole 40 mg EC Tab PO SCH (10:22)
--- NOTE | 2017-11-04 11:51 | PN ---
DATE: SUBJECTIVE: A 72-year-old black female admitted to the hospital with fever and chills and found to have urinary tract infection, E. coli sensitive to Rocephin. On Rocephin the patient is doing well. Also has history of CVA with dysarthria and left upper and left lower extremity weakness. The patient is now progressing well. She is less symptomatic. She is more verbal. She is afebrile. PLAN: Plan is to continue IV antibiotics until the patient is discharged. Reji Mays MD
--- NOTE | 2017-11-04 13:14 | PN ---
DATE: 11/04/2017 SUBJECTIVE: The patient is in bed, in no acute distress, nontoxic. PHYSICAL EXAMINATION: VITAL SIGNS: Temperature is 98, blood pressure is 150/80, respiratory rate of 18. HEENT: Unremarkable. NECK: Supple. LUNGS: Have decreased breath sounds. HEART: Normal S1, S2. ABDOMEN: Soft, nontender. LABORATORY EXAMINATION: Reveals a white count of 11,900, hemoglobin of 10, platelets of 356 and the patient's creatinine is 1.6. Urinalysis is noted, and serology is noted. Microbiology reveals the E. coli in the urine, is noted to be sensitive. REVIEW OF ORDERS: Reveals the patient to be on p.o. doxycycline and IV ceftriaxone. Dr. Kevin Ross's note is reviewed from yesterday and appreciated, and Dr. Mays's note is also reviewed from yesterday. ASSESSMENT AND PLAN: This is a 72-year-old female with systemic inflammatory response syndrome and history of from multiple myeloma. Had a new with acute left partial cerebrovascular accident and sepsis with Escherichia coli urine as a source and bronchitis, lower respiratory tract infection, diabetes, day #5 of ceftriaxone and doxycycline with chest x-ray did not show any infiltrate. Rapid influenza was negative. Procalcitonin was negative. We will discontinue the doxycycline and ceftriaxone and switch to p.o. Vantin at 100 mg p.o. b.i.d. x5 days. Michael Harris MD
--- NOTE | 2017-11-05 02:06 | CP.PCM.PN ---
Subjective - Date & Time of Evaluation Date of Evaluation: 11/05/17 Time of Evaluation: 02:05 - Subjective Subjective: Patient was seen at bedside. Complains of head ache and left hand pain. Head ache is mild. Has arthritis in hand. Has an order for tylenol suppository but patient requested for oral pain medication and nurse had called me for that reason. Medial record was reviewed. This 72 year old woman was admitted for possible pyelonephritis. Has history of multiple myeloma, atrial fibrillation, CVA, left hemiparesis, Objective - Vital Signs/Intake and Output Vital Signs (last 24 hours): Temp Pulse Resp BP Pulse Ox 98.2 F 71 18 149/80 98 11/04/17 16:00 11/04/17 18:42 11/04/17 16:00 11/04/17 18:42 11/04/17 16:00 Intake and Output: 11/04/17 11/05/17 18:59 06:59 Intake Total 480 540 Balance 480 540 - Medications Medications: Current Medications Acetaminophen (Tylenol 650 Mg Supp) 650 mg RC Q6H PRN PRN Reason: Fever >100.4 F Last Admin: 11/03/17 01:24 Dose: 650 mg Acetaminophen (Tylenol 325mg Tab) 650 mg PO Q6H PRN PRN Reason: Fever >100.4 F Acetylcysteine (Acetylcysteine 20%) 3 ml PO BID [facility] Last Admin: 11/03/17 23:57 Dose: Not Given Aspirin (Aspirin Chewable) 81 mg PO DAILY [facility] Last Admin: 11/04/17 10:19 Dose: 81 mg Atorvastatin Calcium (Lipitor) 20 mg PO DAILY [facility] Last Admin: 11/04/17 10:19 Dose: 20 mg Cefpodoxime Proxetil (Vantin) 100 mg PO Q12 [facility] PRN Reason: Protocol Stop: 11/09/17 10:01 Last Admin: 11/04/17 21:23 Dose: 100 mg Guaifenesin (Mucinex La) 600 mg PO BID [facility] Last Admin: 11/04/17 18:43 Dose: 600 mg Levetiracetam (Keppra) 500 mg PO BID [facility] Last Admin: 11/04/17 18:42 Dose: 500 mg Lisinopril (Zestril) 20 mg PO DAILY [facility] Last Admin: 11/04/17 10:21 Dose: 20 mg Metoprolol Tartrate (Lopressor) 25 mg PO BRKDIN [facility] Last Admin: 11/04/17 18:42 Dose: 25 mg Pantoprazole Sodium (Protonix Ec Tab) 40 mg PO DAILY [facility] Last Admin: 11/04/17 10:22 Dose: 40 mg Rivaroxaban (Xarelto) 20 mg PO DAILY [facility] PRN Reason: Protocol Last Admin: 11/04/17 10:21 Dose: 20 mg Sennosides (Senokot Tab) 8.6 mg PO DAILY [facility] Last Admin: 11/04/17 10:20 Dose: 8.6 mg - Labs Labs: PT 25.6 SECONDS (9.4-12.5) H 10/30/17 20:45 INR 2.21 (0.93-1.08) H 10/30/17 20:45 APTT 47.1 Seconds (25.1-36.5) H 10/30/17 20:45 Micro Results 10/30/17 21:41 Blood Blood Culture - Final NO GROWTH AFTER 5 DAYS 10/30/17 21:41 Blood Gram Stain - Final TEST NOT PERFORMED 10/30/17 20:45 Blood Blood Culture - Final NO GROWTH AFTER 5 DAYS 10/30/17 20:45 Blood Gram Stain - Final TEST NOT PERFORMED 10/31/17 01:30 Urine Urine Culture - Final Escherichia Coli Most Recent Lab Values WBC 11.9 10^3/ul (4.5-11.0) H D 10/30/17 20:45 RBC 3.94 10^6/uL (3.5-6.1) 10/30/17 20:45 Hgb 10.0 g/dL (12.0-16.0) L 10/30/17 20:45 Hct 31.3 % (36.0-48.0) L 10/30/17 20:45 MCV 79.4 fl (80.0-105.0) L 10/30/17 20:45 MCH 25.4 pg (25.0-35.0) 10/30/17 20:45 MCHC 31.9 g/dl (31.0-37.0) 10/30/17 20:45 RDW 19.0 % (11.5-14.5) H 10/30/17 20:45 Plt Count 356 10^3/uL (120.0-450.0) 10/30/17 20:45 MPV 9.3 fl (7.0-11.0) 10/30/17 20:45 Gran % 61.8 % (50.0-68.0) 10/30/17 20:45 Lymph % (Auto) 26.0 % (22.0-35.0) 10/30/17 20:45 [place] % (Auto) 10.6 % (1.0-6.0) H 10/30/17 20:45 Eos % (Auto) 1.4 % (1.5-5.0) L 10/30/17 20:45 Baso % (Auto) 0.2 % (0.0-3.0) 10/30/17 20:45 Gran # 7.33 (1.4-6.5) H 10/30/17 20:45 Lymph # 3.1 (1.2-3.4) 10/30/17 20:45 [place] # 1.3 (0.1-0.6) H 10/30/17 20:45 Eos # 0.2 (0.0-0.7) 10/30/17 20:45 Baso # 0.02 K/mm3 (0.0-2.0) 10/30/17 20:45 PT 25.6 SECONDS (9.4-12.5) H 10/30/17 20:45 INR 2.21 (0.93-1.08) H 10/30/17 20:45 APTT 47.1 Seconds (25.1-36.5) H 10/30/17 20:45 pO2 46 mm/Hg (30-55) 10/30/17 20:50 VBG pH 7.37 (7.32-7.43) 10/30/17 20:50 VBG pCO2 51.0 (40-60) 10/30/17 20:50 VBG HCO3 29.5 mmol/l (21-28) H 10/30/17 20:50 VBG Total CO2 31.1 mmol.L (22-28) H 10/30/17 20:50 VBG O2 Sat (Calc) 79.6 % (40-65) H 10/30/17 20:50 VBG Base Excess 3.1 mmol/L (0.0-2.0) H 10/30/17 20:50 VBG Potassium 5.5 mmol/L (3.6-5.2) H 10/30/17 20:50 Sodium 139.0 mmol/L (132-148) 10/30/17 20:50 Chloride 105.0 mmol/L (98-107) 10/30/17 20:50 Glucose 175 mg/dl (65-105) H 10/30/17 20:50 Lactate 2.3 mmol/L (0.7-2.1) H 10/30/17 20:50 FiO2 21.0 % 10/30/17 20:50 Sodium 141 mmol/L (132-148) 10/30/17 21:37 Potassium 4.3 mmol/L (3.6-5.0) 10/30/17 21:37 Chloride 102 mmol/L (98-107) 10/30/17 21:37 Carbon Dioxide 27 mmol/L (21-33) 10/30/17 21:37 Anion Gap 17 (10-20) 10/30/17 21:37 BUN 36 mg/dL (7-21) H 10/30/17 21:37 Creatinine 1.6 mg/dl (0.7-1.2) H 10/30/17 21:37 Est GFR ( Amer) 38 10/30/17 21:37 Est GFR (Non-Af Amer) 32 10/30/17 21:37 POC Glucose (mg/dL) 166 mg/dL (65-110) H 11/04/17 22:07 Random Glucose 163 mg/dL (70-110) H 10/30/17 21:37 Hemoglobin A1c 7.3 % (4.2-6.5) H 10/30/17 20:45 Lactic Acid 1.5 mmol/L (0.7-2.1) 10/31/17 19:35 Calcium 10.1 mg/dL (8.4-10.5) 10/30/17 21:37 Total Bilirubin 0.3 mg/dL (0.2-1.3) 10/30/17 21:37 AST 16 U/L (14-36) 10/30/17 21:37 ALT 25 U/L (7-56) 10/30/17 21:37 Alkaline Phosphatase 103 U/L (38-126) 10/30/17 21:37 Troponin I < 0.01 ng/mL D 10/30/17 21:37 Total Protein 8.7 g/dL (5.8-8.3) H 10/30/17 21:37 Total Protein (PEP) 7.9 g/dL (6.1-8.1) 10/31/17 09:22 Albumin 4.0 g/dL (3.0-4.8) 10/30/17 21:37 Albumin (PEP) 3.3 g/dL (3.8-4.8) L 10/31/17 09:22 Globulin 4.7 gm/dL 10/30/17 21:37 Albumin/Globulin Ratio 0.9 (1.1-1.8) L 10/30/17 21:37 Bfvhs-4-Ykhcqupgn 0.4 g/dL (0.2-0.3) H 10/31/17 09:22 Mrvhh-3-Xbomcrrpx 1.3 g/dL (0.5-0.9) H 10/31/17 09:22 Xnbc-3-Dsbdguuu 0.4 g/dL (0.4-0.6) 10/31/17 09:22 Fdul-3-Eeeulwpp 0.5 g/dL (0.2-0.5) 10/31/17 09:22 Gamma Globulins 2.1 g/dL (0.8-1.7) H 10/31/17 09:22 Abnorm Protein Band 1 0.82 g/dL (None Detected) H 10/31/17 09:22 Abnorm Protein Band 2 TEST NOT PERFORMED 10/31/17 09:22 Abnorm Protein Band 3 TEST NOT PERFORMED 10/31/17 09:22 Triglycerides 99 mg/dL (35-160) 10/30/17 21:37 Cholesterol 118 mg/dL (130-200) L 10/30/17 21:37 LDL Cholesterol Direct 60 mg/dL (0-129) 10/30/17 21:37 HDL Cholesterol 28 mg/dL (29-60) L 10/30/17 21:37 Procalcitonin 0.05 NG/ML (0.19-0.49) L 10/31/17 10:00 Venous Blood Potassium 5.5 mmol/L (3.6-5.2) H 10/30/17 20:50 Urine Color Red (YELLOW) 10/31/17 01:30 Urine Appearance Cloudy (CLEAR) 10/31/17 01:30 Urine pH 6.0 (4.7-8.0) 10/31/17 01:30 Ur Specific [place] 1.020 (1.005-1.035) 10/31/17 01:30 Urine Protein 100 mg/dL (<30 mg/dL) H 10/31/17 01:30 Urine Glucose (UA) Negative mg/dL (NEGATIVE) 10/31/17 01:30 Urine Ketones Negative mg/dL (NEGATIVE) 10/31/17 01:30 Urine Blood Large (NEGATIVE) H 10/31/17 01:30 Urine Nitrate Positive (NEGATIVE) H 10/31/17 01:30 Urine Bilirubin Negative (NEGATIVE) 10/31/17 01:30 Urine Urobilinogen 0.2 E.U./dL (<1 E.U./dL) 10/31/17 01:30 Ur Leukocyte Esterase Moderate Yoseph/uL (NEGATIVE) H 10/31/17 01:30 Urine RBC 15 - 20 /hpf (0-2) 10/31/17 01:30 Urine WBC 25 - 30 /hpf (0-6) 10/31/17 01:30 Ur Epithelial Cells 1 - 3 /hpf (0-5) 10/31/17 01:30 Urine Bacteria Mod (NEG) 10/31/17 01:30 CATARINO & SPEP Interp See note 10/31/17 09:22 Influenza Typ A,B (EIA) Negative for flu a/b (NEGATIVE) 10/31/17 07:36 Blood Type O POSITIVE 10/30/17 20:45 Antibody Screen Negative 10/30/17 20:45 BBK History Checked Patient has bt 10/30/17 20:45 - Constitutional Appears: Well, No Acute Distress - Head Exam Head Exam: ATRAUMATIC, NORMAL INSPECTION, NORMOCEPHALIC - Eye Exam Eye Exam: Normal appearance - ENT Exam ENT Exam: Normal External Ear Exam - Neck Exam Neck Exam: Normal Inspection - Respiratory Exam Respiratory Exam: NORMAL BREATHING PATTERN - Cardiovascular Exam Cardiovascular Exam: absent: JVD - GI/Abdominal Exam GI & Abdominal Exam: absent: Distended - Rectal Exam Rectal Exam: Deferred - Exam Additional comments: Deferred. - Extremities Exam Extremities Exam: Normal Inspection - Back Exam Back Exam: NORMAL INSPECTION - Neurological Exam Neurological Exam: Alert, Awake - Psychiatric Exam Psychiatric exam: Normal Affect, Normal Mood - Skin Skin Exam: Normal Color Assessment and Plan - Assessment and Plan (Free Text) Assessment: Head ache. Left hand pain. Pyelonephritis. Atrial fibrillation. Multiple myeloma. History CVA. Plan: Tylenol PO was ordered. Continue present management as per PMD.
[2017-11-05] MEDS: Cefpodoxime (Vantin) 100 mg Tab PO SCH ×2 (09:56→21:19)
[2017-11-05] MEDS: guaiFENesin 600 mg ER Tab PO SCH ×2 (09:56→17:27)
[2017-11-05] MEDS: Pantoprazole 40 mg EC Tab PO SCH (09:57)
--- NOTE | 2017-11-05 12:49 | PN ---
DATE: SUBJECTIVE: A 72-year-old black female admitted to the hospital with changing mental status; nausea; vomiting; fever; found to have E. coli in the urine, not in the blood, sensitive to antibiotics. The patient denies any problems for 48 hours. The patient will be discharged home most likely today. She has a history of multiple CVAs, paroxysmal atrial fibrillation, and left hemiparesis. Reji Mays MD
--- NOTE | 2017-11-05 13:49 | CP.PCM.PN ---
<PhillipLorrie - Last Filed: 11/05/17 16:31> Subjective - Date & Time of Evaluation Date of Evaluation: 11/05/17 Time of Evaluation: 10:00 - Subjective Subjective: PGY-[address] Ross Neurology Pt states that she has been doing L arm and finger stretching, but those fingers have no stength. No other acute complaint Objective - Vital Signs/Intake and Output Vital Signs (last 24 hours): Temp Pulse Resp BP Pulse Ox 97.7 F 70 20 143/86 96 11/05/17 07:35 11/05/17 09:57 11/05/17 07:35 11/05/17 09:57 11/05/17 07:35 Intake and Output: 11/05/17 11/05/17 06:59 18:59 Intake Total 540 Output Total 0 Balance 540 0 - Medications Medications: Current Medications Acetaminophen (Tylenol 650 Mg Supp) 650 mg RC Q6H PRN PRN Reason: Fever >100.4 F Last Admin: 11/03/17 01:24 Dose: 650 mg Acetaminophen (Tylenol 325mg Tab) 650 mg PO Q6H PRN PRN Reason: Fever >100.4 F Last Admin: 11/05/17 02:22 Dose: 650 mg Acetylcysteine (Acetylcysteine 20%) 3 ml PO BID [facility] Last Admin: 11/03/17 23:57 Dose: Not Given Aspirin (Aspirin Chewable) 81 mg PO DAILY [facility] Last Admin: 11/05/17 09:57 Dose: 81 mg Atorvastatin Calcium (Lipitor) 20 mg PO DAILY [facility] Last Admin: 11/05/17 09:57 Dose: 20 mg Cefpodoxime Proxetil (Vantin) 100 mg PO Q12 [facility] PRN Reason: Protocol Stop: 11/09/17 10:01 Last Admin: 11/05/17 09:56 Dose: 100 mg Guaifenesin (Mucinex La) 600 mg PO BID [facility] Last Admin: 11/05/17 09:56 Dose: 600 mg Levetiracetam (Keppra) 500 mg PO BID [facility] Last Admin: 11/05/17 09:56 Dose: 500 mg Lisinopril (Zestril) 20 mg PO DAILY [facility] Last Admin: 11/05/17 09:57 Dose: 20 mg Metoprolol Tartrate (Lopressor) 25 mg PO BRKDIN [facility] Last Admin: 11/05/17 07:42 Dose: 25 mg Pantoprazole Sodium (Protonix Ec Tab) 40 mg PO DAILY [facility] Last Admin: 11/05/17 09:57 Dose: 40 mg Rivaroxaban (Xarelto) 20 mg PO DAILY [facility] PRN Reason: Protocol Last Admin: 11/05/17 09:56 Dose: 20 mg Sennosides (Senokot Tab) 8.6 mg PO DAILY [facility] Last Admin: 11/05/17 09:56 Dose: 8.6 mg - Labs Labs: PT 25.6 SECONDS (9.4-12.5) H 10/30/17 20:45 INR 2.21 (0.93-1.08) H 10/30/17 20:45 APTT 47.1 Seconds (25.1-36.5) H 10/30/17 20:45 - Constitutional Appears: No Acute Distress - Head Exam Head Exam: ATRAUMATIC, NORMAL INSPECTION, NORMOCEPHALIC - Eye Exam Eye Exam: EOMI, Normal appearance, PERRL. absent: Scleral icterus Pupil Exam: NORMAL ACCOMODATION - ENT Exam ENT Exam: Mucous Membranes Moist - Neck Exam Additional comments: supple - Respiratory Exam Respiratory Exam: Clear to Ausculation Bilateral, NORMAL BREATHING PATTERN. absent: Rales, Rhonchi, Wheezes - Cardiovascular Exam Cardiovascular Exam: REGULAR RHYTHM, +S1, +S2. absent: Murmur - GI/Abdominal Exam GI & Abdominal Exam: Soft, Normal Bowel Sounds. 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 She was fount to have UTI with leukocyte estease. MRI of brain showed old R frontaltemporal infarts and tiny acute Right high parietal lobe infarct. Acute ischemic Stroke Weakness from parietal lobe and recrudescence of her old right middle cerebral artery territory symptoms 1. f/u carotid doppler 2. Monitor electrolytes and correct accordingly 3. Treat underlying UTI 4. ASA 81 and lipitor 20 for stroke prevention. Continue with xarelto for a-fib and stroke prevention 5. delirium precaution 6. Continue current present medical management 7. Recommended Acute rehab. Noted: physical therapy recommened [facility] and pt's baseline activity level is not high. s/r/d/w Dr. Ross <Kevin Ross - Last Filed: 11/05/17 17:20> Objective - Vital Signs/Intake and Output Vital Signs (last 24 hours): Temp Pulse Resp BP Pulse Ox 97.7 F 83 20 143/86 96 11/05/17 07:35 11/05/17 14:00 11/05/17 07:35 11/05/17 09:57 11/05/17 07:35 Intake and Output: 11/05/17 11/05/17 06:59 18:59 Intake Total 540 Output Total 0 Balance 540 0 - Medications Medications: Current Medications Acetaminophen (Tylenol 650 Mg Supp) 650 mg RC Q6H PRN PRN Reason: Fever >100.4 F Last Admin: 11/03/17 01:24 Dose: 650 mg Acetaminophen (Tylenol 325mg Tab) 650 mg PO Q6H PRN PRN Reason: Fever >100.4 F Last Admin: 11/05/17 02:22 Dose: 650 mg Acetylcysteine (Acetylcysteine 20%) 3 ml PO BID [facility] Last Admin: 11/03/17 23:57 Dose: Not Given Aspirin (Aspirin Chewable) 81 mg PO DAILY [facility] Last Admin: 11/05/17 09:57 Dose: 81 mg Atorvastatin Calcium (Lipitor) 20 mg PO DAILY [facility] Last Admin: 11/05/17 09:57 Dose: 20 mg Cefpodoxime Proxetil (Vantin) 100 mg PO Q12 [facility] PRN Reason: Protocol Stop: 11/09/17 10:01 Last Admin: 11/05/17 09:56 Dose: 100 mg Guaifenesin (Mucinex La) 600 mg PO BID [facility] Last Admin: 11/05/17 09:56 Dose: 600 mg Levetiracetam (Keppra) 500 mg PO BID [facility] Last Admin: 11/05/17 09:56 Dose: 500 mg Lisinopril (Zestril) 20 mg PO DAILY [facility] Last Admin: 11/05/17 09:57 Dose: 20 mg Metoprolol Tartrate (Lopressor) 25 mg PO BRKDIN [facility] Last Admin: 11/05/17 07:42 Dose: 25 mg Pantoprazole Sodium (Protonix Ec Tab) 40 mg PO DAILY [facility] Last Admin: 11/05/17 09:57 Dose: 40 mg Rivaroxaban (Xarelto) 20 mg PO DAILY [facility] PRN Reason: Protocol Last Admin: 11/05/17 09:56 Dose: 20 mg Sennosides (Senokot Tab) 8.6 mg PO DAILY [facility] Last Admin: 11/05/17 09:56 Dose: 8.6 mg - Labs Labs: PT 25.6 SECONDS (9.4-12.5) H 10/30/17 20:45 INR 2.21 (0.93-1.08) H 10/30/17 20:45 APTT 47.1 Seconds (25.1-36.5) H 10/30/17 20:45 Attending/Attestation - Attestation I have personally seen and examined this patient.: Yes I have fully participated in the care of the patient.: Yes I have reviewed all pertinent clinical information, including history, physical exam and plan: Yes
[2017-11-05 18:29] VITALS: TEMP 98.1
--- NOTE | 2017-11-05 19:27 | PN ---
DATE: 11/05/2017 SUBJECTIVE: Patient is in bed, in no acute distress, nontoxic. PHYSICAL EXAMINATION: VITAL SIGNS: Temperature is 97, blood pressure is 140/80, respiratory rate of 18. HEENT: Unremarkable. NECK: Supple. LUNGS: Have decreased breath sounds. HEART: Normal S1, S2. ABDOMEN: Soft, nontender. LABORATORY DATA: Reveals a white count of 11,900, hemoglobin of 10, platelets of 356. Chemistries are noted. Patient's BUN of 36, creatinine of 1.6 with a procalcitonin of 0.05. Urinalysis is noted. Immunology is noted. Influenza is negative. Microbiology reveals E. coli in the urine. The blood cultures are no growth at 5 days. The E. coli in the urine is sensitive to ampicillin and resistant to Bactrim, sensitive to Cipro, sensitive to cefepime and cefazolin. Dr. Mays's note is reviewed. CURRENT MEDICATIONS: The patient's current medication include p.o. cefpodoxime. ASSESSMENT AND PLAN: This is a 72-year-old female with sepsis with Escherichia coli in urine as the source with multiple myeloma with new acute left partial cerebrovascular accident and sepsis with Escherichia coli in the source and bronchitis. Escherichia coli is in the urine and had received 5 days of ceftriaxone and doxycycline, now p.o. Vantin 100 mg p.o. b.i.d. x5 days. Patient is to follow up with Dr. Mays. Michael Harris MD
--- NOTE | 2017-11-05 19:38 | US ---
PROCEDURE: Bilateral carotid artery duplex ultrasound HISTORY: Carotid stenosis CVA PHYSICIAN(S): Dominick Hugo MD. TECHNIQUE: Duplex sonography and color-flow Doppler were used to evaluate the carotid bifurcations and limited segments of the vertebral arteries bilaterally. FINDINGS: There is mild to moderate smooth hypoechoic plaque noted at the carotid bifurcations bilaterally. The peak systolic velocity in the proximal right internal carotid artery is 35 cm/sec. This corresponds to a 20 to 39% proximal right ICA stenosis. Normal systolic velocities are noted in the proximal right external carotid artery. There is antegrade flow in the right vertebral artery. The peak systolic velocity in the proximal left internal carotid artery is 69 cm/sec. This corresponds to a 20 to 39% proximal left ICA stenosis. Normal systolic velocities are noted in the proximal left external carotid artery. There is blunted, high resistance antegrade flow in the left vertebral artery. IMPRESSION: 1. Bilateral 20-39% proximal ICA stenoses. 2. Antegrade flow in both vertebral arteries. A high resistance pattern is noted in the left vertebral artery
[2017-11-06 08:28] VITALS: BP 150/80; PULSE 72
[2017-11-06 08:54] VITALS: RESP 18; O2SAT 97
--- NOTE | 2017-11-06 10:24 | CP.PCM.PN ---
<PhillipLorrie - Last Filed: 11/06/17 11:02> Subjective - Date & Time of Evaluation Date of Evaluation: 11/06/17 Time of Evaluation: 09:00 - Subjective Subjective: PGY-[address] Ross Neurology Pt is pending placement to [facility] to subacute rehab, Pt states that she has been doing L arm and finger stretching, but those fingers have no strength. No other acute complaint Objective - Vital Signs/Intake and Output Vital Signs (last 24 hours): Temp Pulse Resp BP Pulse Ox 98.1 F 72 18 150/80 97 11/06/17 06:00 11/06/17 08:24 11/06/17 06:00 11/06/17 08:24 11/06/17 06:00 - Medications Medications: Current Medications Acetaminophen (Tylenol 650 Mg Supp) 650 mg RC Q6H PRN PRN Reason: Fever >100.4 F Last Admin: 11/03/17 01:24 Dose: 650 mg Acetaminophen (Tylenol 325mg Tab) 650 mg PO Q6H PRN PRN Reason: Fever >100.4 F Last Admin: 11/05/17 02:22 Dose: 650 mg Acetylcysteine (Acetylcysteine 20%) 3 ml PO BID [facility] Last Admin: 11/03/17 23:57 Dose: Not Given Aspirin (Aspirin Chewable) 81 mg PO DAILY [facility] Last Admin: 11/05/17 09:57 Dose: 81 mg Atorvastatin Calcium (Lipitor) 20 mg PO DAILY [facility] Last Admin: 11/05/17 09:57 Dose: 20 mg Cefpodoxime Proxetil (Vantin) 100 mg PO Q12 [facility] PRN Reason: Protocol Stop: 11/09/17 10:01 Last Admin: 11/05/17 21:19 Dose: 100 mg Guaifenesin (Mucinex La) 600 mg PO BID [facility] Last Admin: 11/05/17 17:27 Dose: 600 mg Levetiracetam (Keppra) 500 mg PO BID [facility] Last Admin: 11/05/17 17:27 Dose: 500 mg Lisinopril (Zestril) 20 mg PO DAILY [facility] Last Admin: 11/05/17 09:57 Dose: 20 mg Metoprolol Tartrate (Lopressor) 25 mg PO BRKDIN [facility] Last Admin: 11/06/17 08:24 Dose: 25 mg Pantoprazole Sodium (Protonix Ec Tab) 40 mg PO DAILY [facility] Last Admin: 11/05/17 09:57 Dose: 40 mg Rivaroxaban (Xarelto) 20 mg PO DAILY [facility] PRN Reason: Protocol Last Admin: 11/05/17 09:56 Dose: 20 mg Sennosides (Senokot Tab) 8.6 mg PO DAILY [facility] Last Admin: 11/05/17 09:56 Dose: 8.6 mg - Labs Labs: PT 25.6 SECONDS (9.4-12.5) H 10/30/17 20:45 INR 2.21 (0.93-1.08) H 10/30/17 20:45 APTT 47.1 Seconds (25.1-36.5) H 10/30/17 20:45 - Constitutional Appears: No Acute Distress - Head Exam Head Exam: ATRAUMATIC, NORMAL INSPECTION, NORMOCEPHALIC - Eye Exam Eye Exam: EOMI, Normal appearance, PERRL - Neck Exam Additional comments: supple - Respiratory Exam Respiratory Exam: Clear to Ausculation Bilateral, NORMAL BREATHING PATTERN. absent: Rales, Wheezes - Cardiovascular Exam Cardiovascular Exam: REGULAR RHYTHM, +S1, +S2 - GI/Abdominal Exam GI & Abdominal Exam: Soft, Normal Bowel Sounds. 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 She was fount to have UTI with leukocyte estease. MRI of brain showed old R frontaltemporal infarts and tiny acute Right high parietal lobe infarct. Acute ischemic Stroke Weakness from parietal lobe and recrudescence of her old right middle cerebral artery territory symptoms 1. carotid doppler: b/1 20-39% proximal ICA stenosis, anterial flow with high resistance at L veterbral artery 2. Monitor electrolytes and correct accordingly 3. Treat underlying UTI 4. ASA 81 and lipitor 20 for stroke prevention. Continue with xarelto for a-fib and stroke prevention 5. delirium precaution 6. Continue current present medical management 7. Recommended Acute rehab. s/r/d/w Dr. Ross <Kevin Ross - Last Filed: 11/06/17 15:56> Objective - Vital Signs/Intake and Output Vital Signs (last 24 hours): Temp Pulse Resp BP Pulse Ox 98.1 F 72 18 150/80 97 11/06/17 06:00 11/06/17 10:38 11/06/17 06:00 11/06/17 10:38 11/06/17 06:00 - Labs Labs: PT 25.6 SECONDS (9.4-12.5) H 10/30/17 20:45 INR 2.21 (0.93-1.08) H 10/30/17 20:45 APTT 47.1 Seconds (25.1-36.5) H 10/30/17 20:45 Attending/Attestation - Attestation I have personally seen and examined this patient.: Yes I have fully participated in the care of the patient.: Yes I have reviewed all pertinent clinical information, including history, physical exam and plan: Yes
[2017-11-06] MEDS: guaiFENesin 600 mg ER Tab PO SCH (10:38)
[2017-11-06] MEDS: Cefpodoxime (Vantin) 100 mg Tab PO SCH (10:38)
[2017-11-06] MEDS: Pantoprazole 40 mg EC Tab PO SCH (10:38)
--- NOTE | 2017-11-06 19:28 | PN ---
DATE: 11/06/2017 SUBJECTIVE: The patient is seen early this morning in room 360. She states she is doing well. No fevers and no chills. PHYSICAL EXAMINATION: VITAL SIGNS: Temperature is 98, blood pressure is 120/70, respiratory rate of 16. HEENT: Unremarkable. NECK: Supple. LUNGS: Have decreased breath sounds. HEART: Normal S1, S2. ABDOMEN: Soft. LABORATORY EXAMINATION: Reveals the patient's white count of 11,900, hemoglobin of 10. Chemistries revealed is noted. ASSESSMENT AND PLAN: This is a 72-year-old female with sepsis with Escherichia coli in the urine as a source. The patient with multiple myeloma, new acute left partial cerebrovascular accident and sepsis with Escherichia coli in the urine as a source also with bronchitis, ceftriaxone and doxycycline. Currently on p.o. Vantin. The patient to be discharged on . Michael Harris MD
--- NOTE | 2017-11-06 21:28 | PN ---
DATE: SUBJECTIVE: A 72-year-old black female admitted to the hospital with fever, chills, E. coli urinary tract infection, worsening of her left upper and left lower extremity hemiparesis. The patient received IV antibiotics. She was found to have E. coli in the urine, sensitive. Blood cultures were negative. She was seen by Neurology also. She had an MRI showing very small new infarct. The patient did physical therapy, occupational therapy and speech therapy. She was evaluated for possible acute versus subacute rehab. The patient is continuing here antibiotics by mouth and her physical therapy, occupational therapy and speech therapy. Reji Mays MD
--- NOTE | 2017-11-07 10:05 | DS ---
HISTORY OF PRESENT ILLNESS/HOSPITAL COURSE: The patient is a 72-year-old black female with remote history of multiple myeloma, treated with a bone marrow transplant, history of multiple CVAs with residual left upper and left lower extremity paresis and aphasia. Patient was admitted to hospital with a fever up to 102, urinary tract infection consistent with E. coli, sensitive to antibiotics, and worsening of her left upper and left lower hemiparesis and worsening of mobility in her left hand. Patient underwent physical therapy, occupational therapy, IV antibiotics and she was able to be discharged to an acute rehab. FINAL DISCHARGE DIAGNOSES: Urinary tract infection, cerebrovascular accident, left upper and left lower hemiparesis, aphasia, and remote history of multiple myeloma. Reji Mays MD
--- NOTE | 2017-11-07 14:42 | PQF SEPSIS ---
11/07/17 Dr. Mays, Sepsis is documented in ED notes and ID notes state "SIRS, R/O sepsis" on 10/31 and 11/01. Notes of 11/02 through 11/06 document sepsis. You document UTI only on your summary. Was sepsis ruled in, ruled out, undetermined? Thank you. Clarification of your documentation is requested to better reflect the severity of illness and intensity of treatment of your patient. Indicators present [] Temp < 96.8 or > 100.4 [] WBC count > 12,000/mm3 or <000/mm3 or 10% immature neutrophils [] Heart Rate > 90 [] Respiratory Rate > 20 [] Fever or hypothermia [] Chills [] Positive blood cultures [] Hypotension [] Metabolic acidosis (Elevated lactate level, anion gap or reduced blood pH) [] Acute confusion /Altered Mental Status [] Shock [] Other: [] Location in the medical record that reflects the above clinical findings: [] Treatment Provided: [] PHYSICIAN'S RESPONSE Based on your medical judgment of the clinical indicators outlined above, are you treating this patient for a known or suspected: [] Sepsis / Septicemia Please specify organism if known [] [] SIRS (Systemic Inflammatory Response Syndrome) [] Severe Sepsis (Sepsis with Associated Organ Dysfunction) [] Fever of Unknown Origin [x]x Other, please indicate: [] [] If Unable to Determine, please check the box, sign and date. Present On Admission (POA) Indicator: [x] Present at the time of admission [] Not present at the time of admission [] Clinically Undetermined In responding to this query, please exercise your independent professional judgment. The fact that a question is asked does not imply that any particular answer is desired or expected. Thank you for your clarification on this documentation. If you have any questions please call:[ ] * Thank you, [ ] physician credentialing specialist SHALOM
--- NOTE | 2017-11-08 08:48 | PQF SEPSIS ---
11/08/17 Dr. Mays, Please see previous query form. You checked "other" and "present at time of admission." Please specify what you mean by "other," as I do not see an explanation of what you mean by this on the previous query form. Thank you. Clarification of your documentation is requested to better reflect the severity of illness and intensity of treatment of your patient. Indicators present [] Temp < 96.8 or > 100.4 [] WBC count > 12,000/mm3 or <000/mm3 or 10% immature neutrophils [] Heart Rate > 90 [] Respiratory Rate > 20 [] Fever or hypothermia [] Chills [] Positive blood cultures [] Hypotension [] Metabolic acidosis (Elevated lactate level, anion gap or reduced blood pH) [] Acute confusion /Altered Mental Status [] Shock [] Other: [] Location in the medical record that reflects the above clinical findings: [] Treatment Provided: [] PHYSICIAN'S RESPONSE Based on your medical judgment of the clinical indicators outlined above, are you treating this patient for a known or suspected: [] Sepsis / Septicemia Please specify organism if known [] [] SIRS (Systemic Inflammatory Response Syndrome) [] Severe Sepsis (Sepsis with Associated Organ Dysfunction) [] Fever of Unknown Origin [x] Other, please indicate: [] [] If Unable to Determine, please check the box, sign and date. Present On Admission (POA) Indicator: x[] Present at the time of admission [] Not present at the time of admission [] Clinically Undetermined In responding to this query, please exercise your independent professional judgment. The fact that a question is asked does not imply that any particular answer is desired or expected. Thank you for your clarification on this documentation. If you have any questions please call:[ ] * Thank you, [ ] haul driver SHALOM
== END 2017-11-06 13:57 | DRG 689 ==
LOC: ED 19:41 → ERH 10-31 00:33 → 5RSO 10-31 12:02 → 3RNO 10-31 18:26
PROVIDERS: ADMIT Internal Medicine; ATTEND Internal Medicine
DX: N12 Tubulo-interstitial nephritis, not specified as acute or chronic (principal); I63.9 Cerebral infarction, unspecified; I48.0 Paroxysmal atrial fibrillation; I69.354 Hemiplegia and hemiparesis following cerebral infarction affecting left non-dominant side; R65.10 Systemic inflammatory response syndrome (SIRS) of non-infectious origin without acute organ dysfunction; Z94.81 Bone marrow transplant status; E11.9 Type 2 diabetes mellitus without complications; R47.01 Aphasia; C90.01 Multiple myeloma in remission; Z94.84 Stem cells transplant status; I69.322 Dysarthria following cerebral infarction; B96.20 Unspecified Escherichia coli [E. coli] as the cause of diseases classified elsewhere; I10 Essential (primary) hypertension; J40 Bronchitis, not specified as acute or chronic; K21.9 Gastro-esophageal reflux disease without esophagitis; M19.90 Unspecified osteoarthritis, unspecified site; Z79.01 Long term (current) use of anticoagulants; R40.2412 Glasgow coma scale score 13-15, at arrival to emergency department; J06.9 Acute upper respiratory infection, unspecified; R50.9 Fever, unspecified

== ENCOUNTER 2017-11-13 13:13 | Emergency (ER) | payer MEDICARE ==
[2017-11-13 13:14] VITALS: BMI 28.0
[2017-11-13 13:38] VITALS: RESP 16; TEMP 98
--- NOTE | 2017-11-13 14:35 | ED PDOC ---
Arrival/HPI - General Chief Complaint: Altered Mental Status Time Seen by Provider: 11/13/17 13:41 Historian: [facility] EM Caveat: Altered Mental Status - History of Present Illness Narrative History of Present Illness (Text): 11/13/17 14:00 72 year old female, whose past medical history includes diabetes, multiple myeloma, and multiple TIA/CVA (residual left sided weakness), brought into the emergency department sent by [facility] for Altered Mental Status and increase in confusion. Patient had a CVA last month with left upper and left lower extremity weakness and aphasia. Patient does not smoke or drink alcohol. HPI and ROS limited due to patients Altered Mental Status. Past Medical History - Provider Review Nursing Documentation Reviewed: Yes - Infectious Disease Hx of Infectious Diseases: None - Tetanus Immunization Tetanus Immunization: Unknown - Cardiac Hx Cardiac Disorders: Yes (Afib) Hx Atrial Fibrillation: Yes - Pulmonary Hx Respiratory Disorders: No - Neurological HX Cerebrovascular Accident: Yes Other/Comment: Left sided weakness. Aphasia - HEENT Hx HEENT Disorder: No - Renal Hx Renal Disorder: No - Endocrine/Metabolic Hx Diabetes Mellitus Type 2: Yes - Hematological/Oncological Hx Blood Disorders: Yes Hx Cancer: Yes (multiple myeloma in remission) Other/Comment: stem cell transplant 2012 - Integumentary Hx Dermatological Disorder: No - Musculoskeletal/Rheumatological Hx Musculoskeletal Disorders: Yes (LUMBAR RADICULOPATHY) Hx Falls: Yes (past) Hx Unsteady Gait: Yes - Gastrointestinal Hx Gastrointestinal Disorders: Yes Hx Gastroesophageal Reflux: Yes - Genitourinary/Gynecological Hx Genitourinary Disorders: Yes Hx Incontinence: Yes - Psychiatric Hx Psychophysiologic Disorder: No Hx Substance Use: No - Surgical History Other/Comment: stem cell transplant 2012 - Anesthesia Hx Anesthesia: Yes Hx Anesthesia Reactions: No Hx Malignant Hyperthermia: No - Suicidal Assessment Feels Threatened In Home Enviroment: No Family/Social History - Physician Review Nursing Documentation Reviewed: Yes Family/Social History: No Known Family HX Smoking Status: Never Smoked Hx Alcohol Use: No Hx Substance Use: No Hx Substance Use Treatment: No Allergies/Home Meds Allergies/Adverse Reactions: Allergies No Known Allergies Allergy (Verified 10/31/17 18:23) Home Medications: Home Meds Medication Instructions Recorded Confirmed Atorvastatin [Lipitor] 1 tab PO DAILY 08/08/17 10/30/17 Acetaminophen [Tylenol 325mg tab] 325 mg PO BID 10/19/17 10/30/17 Linagliptin [Tradjenta] 5 mg PO DAILY 10/19/17 10/30/17 Sennosides [Senna] 8.6 mg PO DAILY 10/19/17 10/30/17 Rivaroxaban [Xarelto] 20 mg PO DAILY 10/30/17 10/30/17 Review of Systems - Physician Review All systems were reviewed & negative as marked: Yes - Review of Systems Systems not reviewed;Unavailable: Altered Mental Status Physical Exam Vital Signs Reviewed: Yes Vital Signs Temp Pulse Resp BP Pulse Ox 11/13/17 15:54 71 16 146/77 99 11/13/17 13:14 98 F 78 16 138/76 96 Temperature: Afebrile Blood Pressure: Normal Pulse: Regular Respiratory Rate: Normal Appearance: Positive for: Well-Appearing, Non-Toxic, Comfortable Pain Distress: None Mental Status: Positive for: other (Alert and Oeriented x 1) Finger Stick Blood Glucose: 153 - Systems Exam Head: Present: Atraumatic, Normocephalic Pupils: Present: PERRL Extroacular Muscles: Present: EOMI Conjunctiva: Present: Normal Mouth: Present: Moist Mucous Membranes Neck: Present: Normal Range of Motion Respiratory/Chest: Present: Clear to Auscultation, Good Air Exchange. No: Respiratory Distress, Accessory Muscle Use Cardiovascular: Present: Regular Rate and Rhythm, Normal S1, S2. No: Murmurs Abdomen: Present: Normal Bowel Sounds. No: Tenderness, Distention, Peritoneal Signs Back: Present: Normal Inspection Upper Extremity: Present: Normal Inspection. No: Cyanosis, Edema Lower Extremity: Present: Normal Inspection. No: Edema Neurological: Present: GCS=15, CN II-XII Intact, Other (Severe weakness to the left upper and left lower extremities. ) Skin: Present: Warm, Dry, Normal Color. No: Rashes Psychiatric: Present: Alert. No: Oriented x 3 (Oriented x 1) Medical Decision Making ED Course and Treatment: 11/13/17 14:20 Impression: 72 year old female sent by [facility] for AMS and increase in confusion. Pt past medical history includes CVA last month. Plan: -- CT Head w/o Contrast -- EKG -- Labs -- Chest X-ray -- Glucose, Blood, POC -- Urinalysis -- Reassess and disposition Prior Visits: Notes and results from previous visits were reviewed. Patient was last seen in the emergency department on 10/30/17 presents complaining of increased left sided weakness and worsening dysarthria. Progress Notes: 11/13/17 15:55 Chest 1 view shows no infiltrate effusion or cardiomegaly 11/13/17 15:58 Urine culture has been obtained. No findings to warrant acute hospitalization. - Lab Interpretations Lab Results: 11/13/17 14:30 11/13/17 14:30 Lab Results 11/13/17 15:08: Urine Color Yellow, Urine Appearance Sl cloudy, Urine pH 6.0, Ur Specific [place] 1.015, Urine Protein 30 H, Urine Glucose (UA) Negative, Urine Ketones Negative, Urine Blood Large H, Urine Nitrate Negative, Urine Bilirubin Negative, Urine Urobilinogen 0.2, Ur Leukocyte Esterase Negative, Urine RBC 20 - 25, Urine WBC 1 - 3, Ur Epithelial Cells 4 - 5, Amorphous Sediment Few, Urine Bacteria Many 11/13/17 14:30: Sodium 140, Potassium 3.8, Chloride 101, Carbon Dioxide 28, Anion Gap 15, BUN 30 H, Creatinine 1.9 H, Est GFR ( Amer) 32, Est GFR ( Non-Af Amer) 26, Random Glucose 135 H, Calcium 11.1 H, Magnesium 1.7, Total Bilirubin 0.4, AST 27, ALT 25, Alkaline Phosphatase 97, Lactate Dehydrogenase 391, Total Creatine Kinase 32 L, Troponin I < 0.01, Total Protein 9.3 H, Albumin 4.0, Globulin 5.3, Albumin/Globulin Ratio 0.8 L 11/13/17 14:30: PT 15.5 H, INR 1.35 H, APTT 41.2 H 11/13/17 14:30: WBC 10.7, RBC 3.42 L, Hgb 8.7 L, Hct 27.8 L, MCV 81.3, MCH 25.4 , MCHC 31.3, RDW 18.3 H, Plt Count 432, MPV 8.4, Gran % 53.0, Lymph % (Auto) 35.8 H, Gaines % (Auto) 8.1 H, Eos % (Auto) 2.8, Baso % (Auto) 0.3, Gran # 5.67, Lymph # 3.8 H, Gaines # 0.9 H, Eos # 0.3, Baso # 0.03 I have reviewed the lab results: Yes - RAD Interpretation Radiology Orders: 11/13/17 13:56 HEAD W/O CONTRAST [CT] Stat CHEST PORTABLE [RAD] Stat CT scan of the head is read by the radiologist shows old CVAs with no acute findings. Possible sinusitis. 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 I have reviewed the chart and agree that the record accurately reflects my personal performance of the history, physical exam, medical decision making, and the department course for this patient. I have also personally directed, reviewed, and agree with the discharge instructions and disposition. Disposition/Present on Arrival - Present on Arrival Any Indicators Present on Arrival: No History of DVT/PE: No History of Uncontrolled Diabetes: No Urinary Catheter: No History of Decub. Ulcer: No History Surgical Site Infection Following: None - Disposition Have Diagnosis and Disposition been Completed?: Yes Diagnosis: CVA (cerebral vascular accident), Altered mental status, Anemia, Renal failure , Dehydration, Hematuria Disposition: HOME/ ROUTINE Disposition Time: 15:57 Patient Plan: Discharge Condition: FAIR Discharge Instructions (ExitCare): Dehydration (ED), Renal Failure Diet (DC), Acute Hematuria (ED) Forms: [employer] (Tunisian)
[2017-11-13 14:55] LABS: BASO # 0.03 K/mm3 (0.0-2.0); BASO % 0.3 % (0.0-3.0); EOS # 0.3 (0.0-0.7); EOS % 2.8 % (1.5-5.0); GRAN # 5.67 (1.4-6.5); HEMOGLOBIN 8.7 g/dL (12.0-16.0); LYMPH # 3.8 (1.2-3.4); LYMPH % 35.8 % (22.0-35.0); MEAN CELL VOLUME 81.3 fl (80.0-105.0); MEAN CORPUSCULAR HEMOGLOBIN 25.4 pg (25.0-35.0); MEAN CORPUSCULAR HGB CONC 31.3 g/dl (31.0-37.0); MEAN PLATELET VOLUME 8.4 fl (7.0-11.0); MONO # 0.9 (0.1-0.6); MONO % 8.1 % (1.0-6.0); RBC 3.42 10^6/uL (3.5-6.1); RED CELL DISTRIBUTION WIDTH 18.3 % (11.5-14.5); WHITE BLOOD COUNT 10.7 10^3/ul (4.5-11.0)
[2017-11-13 15:08] LABS: INR 1.35 (0.93-1.08); PARTIAL THROMBOPLASTIN TIME 41.2 Seconds (25.1-36.5); PROTHROMBIN TIME 15.5 SECONDS (9.4-12.5)
[2017-11-13 15:09] LABS: TROPONIN I < 0.01 ng/mL
[2017-11-13 15:10] LABS: ALB/GLOB RATIO 0.8 (1.1-1.8); ALT/SGPT 25 U/L (7-56); AST/SGOT 27 U/L (14-36); BLOOD UREA NITROGEN 30 mg/dL (7-21); CALCIUM 11.1 mg/dL (8.4-10.5); GFR AFRICAN-AMERICAN 32; GFR NON-AFRICAN AMERICAN 26; MAGNESIUM 1.7 mg/dL (1.7-2.2)
[2017-11-13 15:12] LABS: URINE BILIRUBIN NEGATIVE (NEGATIVE); URINE BLOOD LARGE (NEGATIVE); URINE GLUCOSE (UA) NEGATIVE (NEGATIVE); URINE LEUKOCYTE ESTERASE NEGATIVE Leu/uL (NEGATIVE); URINE NITRATE NEGATIVE (NEGATIVE); URINE PROTEIN 30 mg/dL (<30 mg/dL); URINE UROBILINOGEN 0.2 E.U./dL (<1 E.U./dL)
[2017-11-13 15:16] LABS: URINE APPEARANCE SL CLOUDY (CLEAR); URINE COLOR YELLOW (YELLOW)
[2017-11-13 15:19] LABS: URINE RBC 20 - 25 /hpf (0-2)
[2017-11-13 15:20] LABS: URINE AMORPHOUS SEDIMENT FEW; URINE BACTERIA MANY (NEG)
--- NOTE | 2017-11-13 15:30 | CT ---
PROCEDURE: CT HEAD WITHOUT CONTRAST. HISTORY: ams COMPARISON: 10/30/2017 TECHNIQUE: Axial computed tomography images were obtained through the head/brain without intravenous contrast. Radiation dose: Total exam DLP = 839.62 mGy-cm. This CT exam was performed using one or more of the following dose reduction techniques: Automated exposure control, adjustment of the mA and/or kV according to patient size, and/or use of iterative reconstruction technique. FINDINGS: HEMORRHAGE: No intracranial hemorrhage. BRAIN: No intracranial mass. Old right frontal focal encephalomalacia. Old right high parietal focal encephalomalacia. Likely old MCA territory infarcts. No evidence of acute infarct. Mild diffuse age related atrophy. Moderate periventricular white matter lucency with patchy deep and subcortical white matter lucency, consistent with chronic microvascular white matter ischemic change. VENTRICLES: Unremarkable. No hydrocephalus. CALVARIUM: Unremarkable. PARANASAL SINUSES: There is extensive opacification of the frontal, ethmoid and sphenoid sinuses. Air-fluid levels are seen in the sphenoid sinus. This may indicate acute sinusitis. Please correlate clinically. There is mucoperiosteal thickening or fluid seen in the small included portion of the maxillary sinuses at the inferior extent of this examination. MASTOID AIR CELLS: Unremarkable as visualized. No inflammatory changes. OTHER FINDINGS: None. IMPRESSION: No intracranial mass, hemorrhage or evidence of acute infarct. 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 Chronic white matter ischemic change. Opacification of paranasal sinuses with air-fluid levels in the sphenoid sinus. Rule out acute sinusitis.
[2017-11-13 15:55] VITALS: BP 146/77; PULSE 71; O2SAT 99
--- NOTE | 2017-11-13 16:11 | RAD ---
HISTORY: ams COMPARISON: 11/02/2017 FINDINGS: LUNGS: No active pulmonary disease. PLEURA: No significant pleural effusion identified, no pneumothorax apparent. CARDIOVASCULAR: Normal. OSSEOUS STRUCTURES: No significant abnormalities. VISUALIZED UPPER ABDOMEN: Normal. OTHER FINDINGS: None. IMPRESSION: No active disease.
--- NOTE | 2017-11-13 23:40 | CARD ---
APPROVED REPORT EKG Measurement Heart [id number] <Conclusion> Normal sinus rhythm Nonspecific T wave abnormality Abnormal ECG
== END 2017-11-13 17:44 | disposition home or self-care (01) ==
LOC: ED 13:13
DX: I63.9 Cerebral infarction, unspecified (principal); E86.0 Dehydration; D64.9 Anemia, unspecified; R31.9 Hematuria, unspecified; R41.82 Altered mental status, unspecified; N19 Unspecified kidney failure; E11.9 Type 2 diabetes mellitus without complications; I48.91 Unspecified atrial fibrillation